=== PATIENT | female | born 1935 | race Caucasian/White ===

== ENCOUNTER 2016-10-03 10:06 | Inpatient (IN) | payer MEDICARE, OTHER ==
[~2016-10-03] VITALS: Ht 154.9 cm; Wt 83.0 kg
[2016-10-03] MEDS ORDERED: SOD CHLORIDE 0.9% 500 ML IV STA (10:24)
[2016-10-03] MEDS ORDERED: HYDROmorphONE 1 MG/ML SYG IV STA (10:24)
[2016-10-03] MEDS ORDERED: ONDANSETRON 4 MG INJ IV STA (10:24)
[2016-10-03 10:55] LABS: BASOPHIL # 0.1 10^3/ul (0.0-0.1); BASOPHILS % 0.8 % (0.0-2.0); EOSINOPHILS # 0.2 10^3/ul (0.0-0.5); EOSINOPHILS % 3.6 % (0.0-7.0); HEMATOCRIT 39.8 % (37.0-47.0); HEMOGLOBIN 12.8 g/dl (12.0-16.0); LYMPHOCYTES # 1.1 10^3/ul (0.8-2.9); LYMPHOCYTES % 16.9 % (15.0-51.0); MEAN CORPUSCULAR HEMOGLOBIN 30.3 pg (29.0-33.0); MEAN CORPUSCULAR HGB CONC 32.2 g/dl (32.0-37.0); MEAN CORPUSCULAR VOLUME 94.1 fl (82.0-101.0); MEAN PLATELET VOLUME 10.6 fl (7.4-10.4); MONOCYTE # 0.6 10^3/ul (0.3-0.9); MONOCYTES % 8.9 % (0.0-11.0); NEUTROPHILS % 69.5 % (39.0-77.0); PLATELET COUNT 241 10^3/UL (140-415); RED BLOOD COUNT 4.23 10^6/ul (4.20-5.40); RED CELL DISTRIBUTION WIDTH 14.7 % (11.5-14.5); WHITE BLOOD COUNT 6.4 10^3/ul (4.8-10.8)
--- NOTE | 2016-10-03 11:07 | RADRPT ---
PROCEDURE: XR Chest. CLINICAL INDICATION: Abdominal pain. TECHNIQUE: Single frontal chest x-ray. COMPARISON: None available FINDINGS: The patient is rotated to the right, limiting evaluation. There is a large hazy right perihilar den sity extending into the upper and lower lobes and obscuring the right heart border. Minimal left bas ilar atelectasis is present. Otherwise, the left lung is clear. No definite effusion or pneumothor ax is seen. The osseous structures are grossly intact. IMPRESSION: Largely hazy right perihilar density extending into the upper, lower, and middle lobes, obscuring th e right heart border. Considerations include extensive pneumonia or hilar/pulmonary mass. Correlat e with the patient's clinical symptoms, follow-up chest x-rays to resolution, and CT chest if clinic ally indicated. RPTAT: JJ .Lambert Rebollar MD, Date Time Electronically viewed and signed by .Lambert Rebollar MD, on 10/03/2016 11:06 .A/
[2016-10-03 11:21] LABS: ALBUMIN 3.6 g/dl (3.3-4.9); ALBUMIN/GLOBULIN RATIO 0.87; BILIRUBIN,INDIRECT 0.3 mg/dl (0-1.1); BILIRUBIN,TOTAL 0.3 mg/dl (0.2-1.3); CALCIUM 9.2 mg/dl (8.4-10.2); CREATININE 0.63 mg/dl (0.44-1.00); POTASSIUM 3.9 mmol/L (3.5-5.1); TOTAL PROTEIN 7.7 g/dl (6.1-8.1)
--- NOTE | 2016-10-03 11:28 | RADRPT ---
PROCEDURE: US Pelvis. CLINICAL INDICATION: Vaginal bleeding TECHNIQUE: Multiple sonographic images of the pelvis were obtained utilizing a transabdominal mattie hnique. The images were reviewed on a PACS workstation. COMPARISON: None. FINDINGS: The study is very limited due to incontinence and a partially distended urinary bladder. The uterus is partially visualized and small in size. The uterus measures 5.8 x 2.7 x 3.5 cm. The ovaries are not visualized. There are possible diverticula near the dome of the bladder and in the left side of the bladder. No free fluid is present within the pelvis. RPTAT: AA IMPRESSION: Very limited study. Small uterus. Ovaries not visualized. No free fluid noted. Possible diverticula in the urinary bladder. .Herman Hinton MD, Date Time Electronically viewed and signed by .Herman Hinton MD, MD on 10/03/2016 11:28 .S/
--- NOTE | 2016-10-03 11:33 | ERA ---
ER Documentation Chief Complaint Date/Time DATE: 10/03/16 TIME: 11:08 Chief Complaint Vaginal Bleeding x 4 days alos c/o lower back pain HPI This 81-year-old female here for complaints of pelvic pain for 3-4 days with vaginal bleeding. She is also complaining today of some low back pain with some diffuse abdominal pain. She has nausea but no vomiting or diarrhea. No recent weight loss or anorexia. She says the pain is described as crampy and sharp at times. Nothing seems to make it worse or better. Denies any fever hematuria dysuria but does have some urinary frequency at times. Family states for the past 6 months she is gradually becoming more weak to the point where she is bedridden and can only take a few steps each day. She is also having a lack of appetite. The patient had a cough for the past 10-14 days with some occasional productive sputum. A home doctor came out to the house and said she had bronchitis and gave her a short course of antibiotics however this did not get any better. The patient is on Coumadin for DVT but there is no history of A. fib ROS All systems reviewed and are negative except as per history of present illness. Medications Home Meds Reported Medications Fentanyl (Fentanyl) 1 Each Patch.td72, 1 EACH TD Q72H, PATCH 10/03/16 Etanercept (Enbrel) 50 Mg/1 Ml Pen.injctr, 50 MG SQ EVERY Sunday10/03/16 Folic Acid* (Folic Acid*) 1 Mg Tablet, 1 MG PO DAILY, TAB 10/03/16 Losartan Potassium* (Losartan Potassium*) 100 Mg Tablet, 100 MG PO DAILY, TAB 10/03/16 Warfarin Sodium* (Warfarin Sodium*) 4 Mg Tablet, 4 MG PO DAILY, TAB 10/03/16 Tramadol Hcl* (Ultram*) 50 Mg Tablet, 50 MG PO BID Y for PAIN, TAB 10/03/16 Cyanocobalamin* (Vitamin B12*) 100 Mcg Tab, 100 MCG PO DAILY, TAB 10/03/16 Hydrocodone/Acetaminophen ([place] 10-325 Tablet) 1 Each Tablet, 1 EACH PO DAILY Y for SEVERE PAIN LEVEL 7-10, TAB 10/03/16 Alendronate Sodium* (Fosamax*) 70 Mg Tablet, 70 MG PO EVERY SUNDAY, #4 TAB 10/03/16 Diltiazem Hcl* (Cardizem SR*) 60 Mg Capsr, 60 MG PO TID, #60 CAP 10/03/16 Prednisone* (Prednisone*) 10 Mg Tab, 10 MG PO DAILY, TAB 10/03/16 Docusate Sodium* (Colace*) 250 Mg Capsule, 250 MG PO DAILY Y for CONSTIPATION, # 30 CAP 10/03/16 Cyclobenzaprine Hcl* (Cyclobenzaprine Hcl*) 10 Mg Tablet, 10 MG PO DAILY Y for MUSCLE SPASMS, #90 TAB 10/03/16 Omeprazole* (Omeprazole*) 20 Mg Capsule.dr, 20 MG PO DAILY, #30 CAP 10/03/16 Furosemide* (Furosemide*) 20 Mg Tablet, 20 MG PO DAILY, #60 TAB 10/03/16 Sennosides/Docusate Sodium (Senna S Tablet) 1 Each Tablet, 1 EACH PO DAILY, TAB 10/03/16 Allergies Allergies: Coded Allergies: No Known Allergy (Unverified , 10/03/16) PMhx/Soc History of Surgery: Yes (45 years ago in [facility]; not sure what) Anesthesia Reaction: No Hx Neurological Disorder: No Hx Respiratory Disorders: Yes (asthma) Hx Cardiac Disorders: No Hx Psychiatric Problems: No Hx Miscellaneous Medical Probl: Yes (hypertension, arthritis, sciatica, DVT) Hx Alcohol Use: No Hx Substance Use: No Hx Tobacco Use: No Smoking Status: Never smoker FmHx Family History: No coronary disease Physical Exam Vitals Vital Signs Date Time Temp Pulse Resp B/P Pulse Ox O2 Delivery O2 Flow Rate FiO2 10/03/16 10:30 93 24 187/87 91 Room Air 10/03/16 10:08 97.7 105 18 200/100 94 Physical Exam Const: Well-developed, well-nourished Head: Atraumatic, normocephalic Eyes: Normal Conjunctiva, PERRLA, EOMI, normal sclera, no nystagmus ENT: Normal External Ears, Nose and Mouth, moist mucus membranes. Neck: Full range of motion. No meningismus, no lymphadenopathy. Resp: Clear to auscultation bilaterally, no wheezing, rhonchi, rales Cardio: Regular rate and rhythm, no murmurs, S1 S2 present Abd: Soft, diffuse abdominal tenderness, there is diffuse mild to moderate pelvic tenderness as well, non distended. Normal bowel sounds, no guarding or rebound, no pulsitile abdominal masses or bruits Skin: No petechiae or rashes, no ecchymosis , no maculopapular rash Back: No midline or flank tenderness Ext: No cyanosis, or edema, FROM x 4, normal inspection, neurovascularly intact x 4 Neur: Awake and alert, STR 5/5 x 4, sensation intact x 4, no focal findings, cerebellum intact Psych: Normal Mood and Affect Result Diagram: 10/03/16 1024 10/03/16 1024 Results 24 hrs Laboratory Tests Test 10/03/16 10:24 10/03/16 11:45 White Blood Count 6.410^3/ul Red Blood Count 4.2310^6/ul Hemoglobin 12.8g/dl Hematocrit 39.8% Mean Corpuscular Volume 94.1fl Mean Corpuscular Hemoglobin 30.3pg Mean Corpuscular Hemoglobin Concent 32.2g/dl Red Cell Distribution Width 14.7% Platelet Count 08225^3/UL Mean Platelet Volume 10.6fl Neutrophils % 69.5% Lymphocytes % 16.9% Monocytes % 8.9% Eosinophils % 3.6% Basophils % 0.8% Nucleated Red Blood Cells % 0.0/100WBC Neutrophils # (Manual) 4.510^3/ul Lymphocytes # 1.110^3/ul Monocytes # 0.610^3/ul Eosinophils # 0.210^3/ul Basophils # 0.110^3/ul Nucleated Red Blood Cells # 0.010^3/ul Sodium Level 145mmol/L Potassium Level 3.9mmol/L Chloride Level 104mmol/L Carbon Dioxide Level 27mmol/L Anion Gap 18 Blood Urea Nitrogen 20mg/dl Creatinine 0.63mg/dl Glucose Level 127mg/dl Calcium Level 9.2mg/dl Total Bilirubin 0.3mg/dl Direct Bilirubin 0.00mg/dl Indirect Bilirubin 0.3mg/dl Aspartate Amino Transf (AST/SGOT) 18IU/L Alanine Aminotransferase (ALT/SGPT) 26IU/L Alkaline Phosphatase 68IU/L Total Protein 7.7g/dl Albumin 3.6g/dl Globulin 4.10g/dl Albumin/Globulin Ratio 0.87 Lipase 19U/L Urine Color RED Urine Clarity CLOUDY Urine pH 8.0 Urine Specific [place] 1.017 Urine Ketones NEGATIVEmg/dL Urine Nitrite NEGATIVEmg/dL Urine Bilirubin NEGATIVEmg/dL Urine Urobilinogen NEGATIVEmg/dL Urine Leukocyte Esterase 1+Beto/ul Urine Microscopic RBC > 182/HPF Urine Microscopic WBC > 182/HPF Urine Hemoglobin 3+mg/dL Urine Glucose NEGATIVEmg/dL Urine Total Protein 3+mg/dl Current Medications Medications (Trade) Dose Ordered Sig/Ryan Route PRN Reason Start Time Stop Time Status Last Admin Dose Admin Sodium Chloride (NS) 500 ml @ 500 mls/hr Q1H STAT IV 10/03/16 10:24 10/03/16 11:23 DC 10/03/16 10:41 Hydromorphone HCl (Dilaudid) 1 mg ONCE STAT IV 10/03/16 10:24 10/03/16 10:26 DC 10/03/16 10:41 Ondansetron HCl (Zofran Inj) 4 mg ONCE STAT IV 10/03/16 10:24 10/03/16 10:26 DC 10/03/16 10:41 IV Flush 10 ml 10 ml STK-MED ONCE .ROUTE 10/03/16 12:25 10/03/16 12:26 DC 10/03/16 12:44 Sodium Chloride (NS) 100 ml @ ud STK-MED ONCE .ROUTE 10/03/16 12:25 10/03/16 12:26 DC 10/03/16 12:44 Iodixanol 100 ml 100 ml STK-MED ONCE .ROUTE 10/03/16 12:25 10/03/16 12:26 DC 10/03/16 12:44 Cefepime HCl 50 ml @ 100 mls/hr ONCE STAT IVPB 10/03/16 13:24 10/03/16 13:53 Vancomycin HCl (Vancocin) 250 ml @ 125 mls/hr ONCE ONCE IVPB 10/03/16 13:30 10/03/16 15:29 Procedures/MDM PROCEDURE: US Pelvis. CLINICAL INDICATION: Vaginal bleeding TECHNIQUE: Multiple sonographic images of the pelvis were obtained utilizing a transabdominal technique. The images were reviewed on a PACS workstation. COMPARISON: None. FINDINGS: The study is very limited due to incontinence and a partially distended urinary bladder. The uterus is partially visualized and small in size. The uterus measures 5.8 x 2.7 x 3.5 cm. The ovaries are not visualized. There are possible diverticula near the dome of the bladder and in the left side of the bladder. No free fluid is present within the pelvis. RPTAT: AA IMPRESSION: Very limited study. Small uterus. Ovaries not visualized. No free fluid noted. Possible diverticula in the urinary bladder. .Herman Hinton MD, MD Date Time Electronically viewed and signed by .Herman Hinton MD, MD on 10/03/2016 11: 28 .S/ CC: FABIAN BEAVER DO PROCEDURE: XR Chest. CLINICAL INDICATION: Abdominal pain. TECHNIQUE: Single frontal chest x-ray. COMPARISON: None available FINDINGS: The patient is rotated to the right, limiting evaluation. There is a large hazy right perihilar density extending into the upper and lower lobes and obscuring the right heart border. Minimal left basilar atelectasis is present. Otherwise, the left lung is clear. No definite effusion or pneumothorax is seen. The osseous structures are grossly intact. IMPRESSION: Largely hazy right perihilar density extending into the upper, lower, and middle lobes, obscuring the right heart border. Considerations include extensive pneumonia or hilar/pulmonary mass. Correlate with the patient's clinical symptoms, follow-up chest x-rays to resolution, and CT chest if clinically indicated. RPTAT: JJ .Lambert Rebollar MD, Date Time Electronically viewed and signed by .Lambert Rebollar MD, MD on 10/03/2016 11:06 .A/ CC: FABIAN BEAVER DO PROCEDURE: CT Abdomen and Pelvis with contrast. CLINICAL INDICATION: Hematuria, pain TECHNIQUE: CT of the abdomen and pelvis was performed on a multi-detector scanner following the uncomplicated IV administration of 100 cc of Visipaque 320. Coronal and sagittal images were reformatted from the axial data set. One or more of the following dose reduction techniques were used: automated exposure control, adjustment of the mA and/or kV according to patient size, use of iterative reconstruction technique. CTDI = 20.14 mGy. DLP = 1184.18 mGy- cm. COMPARISON: Ultrasound, 10/03/2016 FINDINGS: CT abdomen: The lung bases are clear. There is mild cardiomegaly, without pericardial effusion. Coronary arterial calcifications are noted. Liver, gallbladder, biliary tree, pancreas, spleen, adrenal glands and kidneys are unremarkable except for benign renal cysts. No urolithiasis or obstructive uropathy is identified. Small hiatal hernia is noted. The stomach is otherwise grossly unremarkable. There is no abdominal aortic aneurysm or dissection. Aortic vascular calcifications are present. There is no retroperitoneal lymphadenopathy. The amalia hepatis region is clear. CT pelvis: There is no bowel obstruction, free intraperitoneal air or abscess. Sigmoid diverticulosis is seen without diverticulitis. There is no appendicitis or colitis. Urinary bladder demonstrates mild wall thickening and adjacent inflammatory stranding, concerning for cystitis. Multiple bladder diverticula are noted. Endometrial thickness measures approximately 10 mm (602-81). No pelvic free fluid or lymphadenopathy is identified. The surrounding osseous structures are remarkable for degenerative enthesopathy of the spine. No osteolytic or osteoblastic lesion is detected. There are chronic mild to moderate compression deformities of the L1, L2 and L4 vertebral bodies. IMPRESSION: 1. Urinary bladder wall appears thickened, with adjacent inflammatory stranding , concerning for cystitis. Multiple bladder diverticula are incidentally noted. 2. Endometrial thickness measures 10 mm, above normal limits in a postmenopausal patient - consider further evaluation to exclude endometrial neoplasm. 3. No urolithiasis or obstructive uropathy is identified. 4. Mild cardiomegaly. Coronary arterial and aortoiliac atherosclerotic calcifications. 5. Small hiatal hernia. 6. Sigmoid diverticulosis, without diverticulitis. RPTAT: HDWR .Dougie Tran MD, MD Date Time Electronically viewed and signed by .Dougie Tran MD, MD on 10/03/2016 13: 08 .R/ CC: FABIAN BEAVER DO Patient is a very thickened endometrium concerning for endometrial cancer. Patient has urinary tract infection. The patient has a pneumonia or a neoplasm/ mass in the lungs as well. We will get blood and urine cultures and administer cefepime and vancomycin IV. Obtaining an EKG as well. Monitor shows irregular heart rate ranging from 95- 135 EKG: Rate/Rhythm: Sinus tachycardia heart rate 105 QRS, ST, QT: NORMAL [place], QRS, QT] Impression: NORMAL EKG Departure Diagnosis: Primary Impression: Postmenopausal bleeding Additional Impressions: Urinary tract infection Qualified Code: N30.00 - Acute cystitis without hematuria Pneumonia Qualified Code: J18.9 - Pneumonia due to infectious organism, unspecified laterality, unspecified part of lung Condition: Stable FABIAN BEAVER DO Oct 03, 2016 11:32
[2016-10-03] MEDS ORDERED: SENN-8 PO (11:57)
[2016-10-03] MEDS ORDERED: FURO20TA3 PO (11:57)
[2016-10-03] MEDS ORDERED: OMEP20CA16 PO (11:57)
[2016-10-03] MEDS ORDERED: DOCU250C58 PO (11:58)
[2016-10-03] MEDS ORDERED: CYCL-319 PO (11:58)
[2016-10-03] MEDS ORDERED: CARSR60 PO (11:59)
[2016-10-03] MEDS ORDERED: PRED10TA PO (11:59)
[2016-10-03] MEDS ORDERED: ALEN70TA30 PO (12:00)
[2016-10-03] MEDS ORDERED: HYDR-902 PO (12:01)
[2016-10-03] MEDS ORDERED: WARF4TAB52 PO (12:01)
[2016-10-03] MEDS ORDERED: TRAM-40 PO (12:01)
[2016-10-03] MEDS ORDERED: CYAN100 PO (12:01)
[2016-10-03] MEDS ORDERED: LOSA100T7 PO (12:02)
[2016-10-03] MEDS ORDERED: FOLI-49 PO (12:02)
[2016-10-03] MEDS ORDERED: ETAN50PE SQ (12:02)
[2016-10-03] MEDS ORDERED: FENT-65 TD (12:03)
[2016-10-03 12:12] LABS: ADD UMIC YES; UR ASCORBIC ACID NEGATIVE (NEGATIVE); UR BILIRUBIN (Dip) NEGATIVE (NEGATIVE); UR BLOOD (Dip) 3+ mg/dL (NEGATIVE); UR CLARITY CLOUDY (CLEAR); UR COLOR RED (YELLOW); UR GLUCOSE (Dip) NEGATIVE (NEGATIVE); UR KETONES (Dip) NEGATIVE (NEGATIVE); UR LEUKOCYTE ESTERASE (Dip) 1+ Leu/ul (NEGATIVE); UR NITRITE (Dip) NEGATIVE (NEGATIVE); UR RBC > 182 /HPF (0-5); UR SPECIFIC GRAVITY (Dip) 1.017 (1.003-1.030); UR TOTAL PROTEIN (Dip) 3+ mg/dl (NEGATIVE); UR UROBILINOGEN (Dip) NEGATIVE (NEGATIVE); UR WBC CLUMPS MANY /HPF (NONE SEEN)
[2016-10-03] MEDS ORDERED: SOD CHLORIDE 0.9% 100 ML ONE (12:25)
[2016-10-03] MEDS ORDERED: IODIXANOL LOCM 100 ML BTL ONE (12:25)
--- NOTE | 2016-10-03 13:08 | RADRPT ---
PROCEDURE: CT Abdomen and Pelvis with contrast. CLINICAL INDICATION: Hematuria, pain TECHNIQUE: CT of the abdomen and pelvis was performed on a multi-detector scanner following the un complicated IV administration of 100 cc of Visipaque 320. Coronal and sagittal images were reformat pato from the axial data set. One or more of the following dose reduction techniques were used: auto mated exposure control, adjustment of the mA and/or kV according to patient size, use of iterative reconstruction technique. CTDI = 20.14 mGy. DLP = 1184.18 mGy-cm. COMPARISON: Ultrasound, 10/03/2016 FINDINGS: CT abdomen: The lung bases are clear. There is mild cardiomegaly, without pericardial effusion. Coronary arter ial calcifications are noted. Liver, gallbladder, biliary tree, pancreas, spleen, adrenal glands an d kidneys are unremarkable except for benign renal cysts. No urolithiasis or obstructive uropathy i s identified. Small hiatal hernia is noted. The stomach is otherwise grossly unremarkable. There is no abdominal aortic aneurysm or dissection. Aortic vascular calcifications are present. T here is no retroperitoneal lymphadenopathy. The amalia hepatis region is clear. CT pelvis: There is no bowel obstruction, free intraperitoneal air or abscess. Sigmoid diverticulosis is seen without diverticulitis. There is no appendicitis or colitis. Urinary bladder demonstrates mild wal l thickening and adjacent inflammatory stranding, concerning for cystitis. Multiple bladder diverti cula are noted. Endometrial thickness measures approximately 10 mm (602-81). No pelvic free fluid or lymphadenopathy is identified. The surrounding osseous structures are remarkable for degenerative enthesopathy of the spine. No os teolytic or osteoblastic lesion is detected. There are chronic mild to moderate compression deformit ies of the L1, L2 and L4 vertebral bodies. IMPRESSION: 1. Urinary bladder wall appears thickened, with adjacent inflammatory stranding, concerning for cys titis. Multiple bladder diverticula are incidentally noted. 2. Endometrial thickness measures 10 mm, above normal limits in a postmenopausal patient - consider further evaluation to exclude endometrial neoplasm. 3. No urolithiasis or obstructive uropathy is identified. 4. Mild cardiomegaly. Coronary arterial and aortoiliac atherosclerotic calcifications. 5. Small hiatal hernia. 6. Sigmoid diverticulosis, without diverticulitis. RPTAT: HDWR .Dougie Tran MD, MD Date Time Electronically viewed and signed by .Dougie Tran MD, MD on 10/03/2016 13:08 .R/
[2016-10-03] MEDS ORDERED: CEFEPIME 2GM/50 ML (PMX) 50 ML IVPB STA (13:24)
[2016-10-03] MEDS ORDERED: VANCOMYCIN 1 GM (PMX) 250 ML IVPB ONE (13:30)
[2016-10-03] MEDS ORDERED: SOD CHLORIDE 0.9% 1,000 ML IV SCH (14:14)
[2016-10-03] MEDS ORDERED: ACETAMINOPHEN 325 MG TAB PO PRN (14:30)
[2016-10-03] MEDS ORDERED: ONDANSETRON 4 MG INJ IV PRN (14:30)
[2016-10-03] MEDS ORDERED: HYDROCODONE/APAP (10/325) TAB PO PRN (15:00)
[2016-10-03] MEDS ORDERED: VANCOMYCIN IV PER PHARMACY XX SCH (15:00)
[2016-10-03 15:30] VITALS: BP 132/66; PULSE 110; RESP 18
[2016-10-03 15:46] VITALS: Ht 154.9 cm; Wt 83.0 kg
[2016-10-03] MEDS ORDERED: BISACODYL 10 MG SUPP PR PRN (16:00)
[2016-10-03] MEDS ORDERED: MAGNESIUM HYDROXIDE 30ML CUP PO PRN (16:00)
[2016-10-03] MEDS ORDERED: DOCUSATE SODIUM 100 MG CAP PO PRN (16:00)
[2016-10-03] MEDS: ENBREL XX SCH (16:00)
[2016-10-03] MEDS ORDERED: NACL 0.9% 3 ML SYG IV SCH (16:00)
[2016-10-03] MEDS ORDERED: morphine 2 MG INJ IV PRN (16:00)
[2016-10-03] MEDS ORDERED: HYDROCODONE/APAP (5/325) TAB PO PRN (16:00)
[2016-10-03 16:10] VITALS: PULSE 111
[2016-10-03 16:14] LABS: INR 3.42; PT RATIO 2.7
[2016-10-03 16:36] LABS: INR 3.16; PROTIME 32.9 Sec (12.2-14.2); PT RATIO 2.6
[2016-10-03 16:48] LABS: CANCER ANTIGEN 125 13.3 U/ml (0.0-35.0)
[2016-10-03 16:52] LABS: CANCER ANTIGEN 19-9 23.7 U/ml (0.0-37.0)
[2016-10-03] MEDS ORDERED: WARFARIN 2 MG TAB PO SCH (17:00)
--- NOTE | 2016-10-03 17:36 | HP ---
Date/Time of Note Date/Time of Note DATE: 10/03/16 TIME: 17:31 Assessment/Plan VTE Prophylaxis VTE Prophylaxis Intervention: SCD's Lines/Catheters IV [facility]from [facility]ine [facility] Urinary Cath still in place: No Assessment/Plan Chief Complaint/Hosp Course Impression and plan 1. Postmenopausal vaginal bleeding. Patient did have CT scan of her abdomen and pelvis that did show endometrial thickness measuring 10 mm were normal limits in a postmenopausal patient with report considering further evaluation to exclude endometrial neoplasm. Will get electronics engineering manager pending clinical course. Will also consider urologist. No further bleeding noted at this time. Patient also noted with UTI. Will monitor for now. Monitor H&H. Patient will also be advised for referral to electronics engineering manager as outpatient. 2. Pneumonia. Will get CT scan of the chest. Continue antibiotics for now. Will get health services administrator follow. Of note patient was given diagnosis of pneumonia 10 days prior to this admission was given 10 days of antibiotics. 3. Urinary tract infection with cystitis. Continue antibiotics for now. Follow-up on urine culture. Of note patient did have abdominal pelvic CT scan suggestive of cystitis. 4. Essential hypertension. Continue antihypertensives and adjust needed 5. Sciatica with back pain. Will get pain management physician to follow. Will get physical therapy as well. 6. Deconditioning. Physical therapy to follow. Admission process times greater than 50 minutes Discussed plan of care with Dr. 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 due to reports of vaginal bleeding for 3-4 days. Of note patient was seen with INR of 3.42 which is supratherapeutic. Patient is also postmenopausal. Patient also reported having some associated dysuria and urinary frequency as well as some shortness of breath. Per family patient recently had pneumonia 10 days ago and is given antibiotics for 10 days duration and that thereafter she also received a UTI. She is also become gradually weak profoundly likely secondary to her sciatica. She was brought to [facility] due to the aformentiond issues. On examination she had an abdominal pelvic CT scan that did show urinary bladder wall thickening concerning for cystitis. There is also seen multiple bladder diverticula. She also was seen with endometrial thickness measuring 10 mm, above normal limits in postmenopausal patient with imaging report considering further evaluation to exclude endometrial neoplasm. She was also seen with sigmoid diverticulosis without diverticulitis. It was reported that ER physician did contact on-call TIMBER REPAIRER however further recommendations would likely need outpatient workup for this issue. Patient did also have some shortness of breath. Per chest x-ray did show large hazy right perihilar density extending to the upper, lower and middle lobes. There are considerations for extensive pneumonia or possible pulmonary hilar mass. Patient remained afebrile on visit but did have some tachycardia with heart rate as high as 111. She is on diltiazem but there is no reported history of any kind of heart arrhythmia. No leukocytosis noted and patient did remain afebrile. She did have urinalysis with positive leukocyte esterase tests and findings suggestive of UTI. We will evaluate her for the aformentiond issues. 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 Slightly coarse) Cardiovascular: other (Regular rate to tachycardic) Gastrointestinal: non-tender, soft Genitourinary - Female: other (No catheter in place. Sanitary pad not saturated) Musculoskeletal: swelling (Bilateral lower extremities minimal) Neurological: RESIDENT ASSISTANT CNA II-XII intact, nl speech Labs Result Diagram: 10/03/16 1024 10/03/16 1024 Medications Medications Current Medications Sodium Chloride (NS) 1,000 ml @ 80 mls/hr [id number] IV Last administered on 10/03t 16:32; Admin Dose 80 MLS/HR; Start 10/03/16 at 14:14; Stop 10/04/16 at 02: 43 Cyanocobalamin (Vitamin B12) 100 mcg DAILY PO ; Start 10/04/16 at 09:00 Diltiazem HCl (Cardizem Sr) 60 mg TID PO ; Start 10/03/16 at 21:00 Docusate Sodium (Colace) 250 mg DAILY PRN PO CONSTIPATION; Start 10/03/16 at 15 :00 Folic Acid (Folic Acid) 1 mg DAILY PO ; Start 10/04/16 at 09:00 Furosemide (Lasix) 20 mg DAILY PO ; Start 10/04/16 at 09:00 Acetaminophen/ Hydrocodone Bitart ([place] (10/325)) 1 tab DAILY PRN PO SEVERE PAIN LEVEL 7-10 Last administered on 10/03/16 16:59; Admin Dose 1 TAB; Start at 15:00 Losartan Potassium (Cozaar) 100 mg DAILY PO ; Start 10/04/16 at 09:00 Senna/Docusate Sodium (Senokot-S) 1 tab DAILY PO ; Start 10/04/16 at 09:00 Warfarin Sodium (Coumadin) 4 mg DAILY@17 PO ; Start 10/03/16 at 17:00; Status Future Hold Pantoprazole 40 mg 40 mg DAILY@06 PO ; Start 10/04/16 at 06:00 Cefepime HCl (Maxipime 2gm/50 ml (Pmx)) 50 ml @ 100 mls/hr Q24H IVPB ; Start at 13:00 Miscellaneous Information (*Order Clarification Bulletin) MEDICATION REQUIRES CLARIFICATI... Q8H XX ; Start 10/03/16 at 16:00 Acetaminophen/ Hydrocodone Bitart ([place] (5/325)) 1 tab Q6H PRN PO MODERATE PAIN LEVEL 4-6; Start 10/03/16 at 16:00 Acetaminophen/ Hydrocodone Bitart ([place] (5/325)) 2 tab Q6H PRN PO SEVERE PAIN LEVEL 7-10; Start 10/03/16 at 16:00 Morphine Sulfate (morphine) 2 mg Q4H PRN IV SEVERE PAIN LEVEL 7-10; Start 10/03 at 16:00 Docusate Sodium (Colace) 100 mg Q12H PRN PO CONSTIPATION; Start 10/03/16 at 16: 00 Magnesium Hydroxide (Milk Of Mag) 30 ml DAILY PRN PO CONSTIPATION; Start at 16:00 Bisacodyl 10 mg 10 mg DAILY PRN IA CONSTIPATION; Start 10/03/16 at 16:00 Vancomycin HCl 1.25 gm/Sodium Chloride 250 ml @ 83.333 mls/ hr ONCE ONCE IVPB ; Start 10/03/16 at 18:00; Stop 10/03/16 at 20:59 Vancomycin HCl (Vancocin) 250 ml @ 125 mls/hr Q24H IVPB ; Start 10/04/16 at 18: 00 HUMBERTO PERALTA Oct 03, 2016 17:36
[2016-10-03] MEDS ORDERED: VANCOMYCIN 1.25 GM in SOD CHLORIDE 0.9% 250 ML IVPB ONE (18:00)
[2016-10-03 20:00] VITALS: BP 174/91; RESP 20
[2016-10-03 20:09] VITALS: PULSE 99
[2016-10-03] MEDS: DILTIAZEM (SR) 60 MG CAP PO SCH ×2 (20:50→20:53)
[2016-10-03] MEDS ORDERED: KETOROLAC 15 MG INJ IV PRN (21:00)
[2016-10-03] MEDS: LABETALOL HCL 20MG INJ IV PRN (21:59)
[2016-10-03] MEDS: HYDROCODONE/APAP (5/325) TAB PO PRN (22:59)
[2016-10-03] MEDS ORDERED: traMADol 50 MG TAB PO PRN (23:30)
[2016-10-04] VITALS (11 sets, daily range): BP systolic 134–184; BP diastolic 68–91; PULSE 82–99; RESP 18–20
[2016-10-04] MEDS: LORAZEPAM 1 MG TAB PO PRN ×2 (01:02→20:27)
[2016-10-04] MEDS: LABETALOL HCL 20MG INJ IV PRN (03:58)
[2016-10-04] MEDS: PANTOPRAZOLE (EC) 40 MG TAB PO SCH (05:05)
[2016-10-04] MEDS: HYDROCODONE/APAP (5/325) TAB PO PRN (05:09)
--- NOTE | 2016-10-04 07:52 | CONS ---
Date/Time of Note Date/Time of Note DATE: 10/04/16 TIME: 07:45 Assessment/Plan Assessment/Plan Additional Assessment/Plan Discussion with patient's daughter, there were other first-degree family members were not available. Apparently patient has had a steady downhill course since recent hospitalization for pneumonia. She has had a decrease in cognitive abilities and able to do activities of daily living. She is only able to ambulate with assist and very weak per daughter. I have had a discussion with her concerning goals of care background history, chances for full recovery, acceptable quality of intercommunication preferences. Daughter made it very clear that family has spoken about her CODE STATUS and level of care needs and she has a catastrophic change in her clinical course they do not want her on artificial life support or have cardiopulmonary resuscitation. Therefore goals of care have been discussed and they would like her to hopefully improve to the point if she is able to do some ambulation on her own. Her estimated prognosis is extremely poor her palliative performance scale is 20%. There are no ethical issues as family members have made this decision together. Patient has had pain management syndrome for rheumatoid arthritis prior to hospitalization and takes multiple different opioid pain medication I will streamline her therapy based on my conversation with family members I will change her CODE STATUS to DO NOT RESUSCITATE. Any event that she does not improve significantly from both a cognitive standpoint and physically family request consideration to place patient in a longterm unit. 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 1 Consultation Date/Type/Reason Admit Date/Time Oct 03, 2016 at 14:16 Type of Consultation: Palliative care Social History Alcohol Use: sober Smoking Status: Never smoker Drug Use: none Exam/Review of Systems Vital Signs Vitals Vital Signs Date Time Temp Pulse Resp B/P Pulse Ox O2 Delivery O2 Flow Rate FiO2 10/04/16 07:22 98.7 92 18 134/68 98 10/03/16 21:00 Nasal Cannula 2.0 Intake and Output 10/03/16 10/03/16 10/04/16 15:00 23:00 07:00 Intake Total 660 ml 1140 ml Balance 660 ml 1140 ml Results Result Diagram: 10/03/16 1024 10/03/16 1024 Results 24 hrs Laboratory Tests Test 10/03/16 10:24 10/03/16 10:27 10/03/16 11:45 10/03/16 16:01 White Blood Count 6.4 Red Blood Count 4.23 Hemoglobin 12.8 Hematocrit 39.8 Mean Corpuscular Volume 94.1 Mean Corpuscular Hemoglobin 30.3 Mean Corpuscular Hemoglobin Concent 32.2 Red Cell Distribution Width 14.7 H Platelet Count 241 Mean Platelet Volume 10.6 H Neutrophils % 69.5 Lymphocytes % 16.9 Monocytes % 8.9 Eosinophils % 3.6 Basophils % 0.8 Nucleated Red Blood Cells % 0.0 Neutrophils # (Manual) 4.5 Lymphocytes # 1.1 Monocytes # 0.6 Eosinophils # 0.2 Basophils # 0.1 Nucleated Red Blood Cells # 0.0 Sodium Level 145 H Potassium Level 3.9 Chloride Level 104 Carbon Dioxide Level 27 Anion Gap 18 H Blood Urea Nitrogen 20 Creatinine 0.63 Glucose Level 127 Calcium Level 9.2 Total Bilirubin 0.3 Direct Bilirubin 0.00 Indirect Bilirubin 0.3 Aspartate Amino Transf (AST/SGOT) 18 Alanine Aminotransferase (ALT/SGPT) 26 Alkaline Phosphatase 68 Total Protein 7.7 Albumin 3.6 Globulin 4.10 H Albumin/Globulin Ratio 0.87 Lipase 19 L Prothrombin Time 35.0 H 32.9 H Prothrombin Time Ratio 2.7 2.6 INR International Normalized Ratio 3.42 3.16 Lactate Dehydrogenase 370 CA 19-9 Antigen 23.7 CA 125 Antigen 13.3 Urine Color RED Urine Clarity CLOUDY A Urine pH 8.0 Urine Specific [place] 1.017 Urine Ketones NEGATIVE Urine Nitrite NEGATIVE Urine Bilirubin NEGATIVE Urine Urobilinogen NEGATIVE Urine Leukocyte Esterase 1+ H Urine Microscopic RBC > 182 H Urine Microscopic WBC > 182 H Urine Hemoglobin 3+ H Urine Glucose NEGATIVE Urine Total Protein 3+ H Lactic Acid Level 1.1 Alpha Fetoprotein 3.69 Carcinoembryonic Antigen 4.2 Medications Medications Current Medications Cyanocobalamin (Vitamin B12) 100 mcg DAILY PO ; Start 10/04/16 at 09:00 Diltiazem HCl (Cardizem Sr) 60 mg TID PO Last administered on 10/03/16t 20:53; Admin Dose 60 MG; Start 10/03/16 at 18:00 Docusate Sodium (Colace) 250 mg DAILY PRN PO CONSTIPATION; Start 10/03/16 at 15 :00 Folic Acid (Folic Acid) 1 mg DAILY PO ; Start 10/04/16 at 09:00 Furosemide (Lasix) 20 mg DAILY PO ; Start 10/04/16 at 09:00 Acetaminophen/ Hydrocodone Bitart ([facility] (10/325)) 1 tab DAILY PRN PO SEVERE PAIN LEVEL 7-10 Last administered on 10/03/16 16:59; Admin Dose 1 TAB; Start at 15:00 Losartan Potassium (Cozaar) 100 mg DAILY PO ; Start 10/04/16 at 09:00 Senna/Docusate Sodium (Senokot-S) 1 tab DAILY PO ; Start 10/04/16 at 09:00 Warfarin Sodium (Coumadin) 4 mg DAILY@17 PO ; Start 10/03/16 at 17:00; Status Future Hold Pantoprazole 40 mg 40 mg DAILY@06 PO Last administered on 10/04/16 05:05; Admin Dose 40 MG; Start 10/04/16 at 06:00 Cefepime HCl (Maxipime 2gm/50 ml (Pmx)) 50 ml @ 100 mls/hr Q24H IVPB ; Start at 13:00 Miscellaneous Information (*Order Clarification Bulletin) MEDICATION REQUIRES CLARIFICATI... Q8H XX ; Start 10/03/16 at 16:00 Acetaminophen/ Hydrocodone Bitart ([facility] (5/325)) 1 tab Q6H PRN PO MODERATE PAIN LEVEL 4-6; Start 10/03/16 at 16:00 Acetaminophen/ Hydrocodone Bitart ([facility] (5/325)) 2 tab Q6H PRN PO SEVERE PAIN LEVEL 7-10 Last administered on 10/04/16 05:09; Admin Dose 2 TAB; Start at 16:00 Morphine Sulfate (morphine) 2 mg Q4H PRN IV SEVERE PAIN LEVEL 7-10; Start 10/03 at 16:00 Docusate Sodium (Colace) 100 mg Q12H PRN PO CONSTIPATION; Start 10/03/16 at 16: 00 Magnesium Hydroxide (Milk Of Mag) 30 ml DAILY PRN PO CONSTIPATION; Start at 16:00 Bisacodyl 10 mg 10 mg DAILY PRN [place] CONSTIPATION; Start 10/03/16 at 16:00 Vancomycin HCl (Vancocin) 250 ml @ 125 mls/hr Q24H IVPB ; Start 10/04/16 at 18: 00 Labetalol HCl (Labetalol) 10 mg Q4H PRN IV for SBP greater than 160 Last administered on 10/04/16 03:58; Admin Dose 10 MG; Start 10/03/16 at 21:00 Tramadol HCl (Ultram) 50 mg Q6H PRN PO PAIN Last administered on 10/03/16 23: 58; Admin Dose 50 MG; Start 10/03/16 at 23:30 Lorazepam (Ativan) 1 mg Q6H PRN PO ANXIETY Last administered on 10/04/16 01:02 ; Admin Dose 1 MG; Start 10/03/16 at 23:30 PRANAV REHMAN Oct 04, 2016 07:52
[2016-10-04] MEDS: ENBREL XX SCH ×3 (08:00→16:00)
[2016-10-04] MEDS: FUROSEMIDE 20 MG TAB PO SCH (09:25)
[2016-10-04] MEDS: CYANOCOBALAMIN 100 MCG TAB PO SCH (09:25)
[2016-10-04] MEDS: DILTIAZEM (SR) 60 MG CAP PO SCH ×3 (09:25→21:23)
[2016-10-04] MEDS: FOLIC ACID 1 MG TAB PO SCH (09:26)
[2016-10-04] MEDS: LOSARTAN 50 MG TAB PO SCH (09:26)
[2016-10-04] MEDS: SENNA/DOCUSATE NA (8.6MG/50MG) TAB PO SCH (09:26)
[2016-10-04] MEDS ORDERED: traMADol 50 MG TAB PO SCH (09:30)
[2016-10-04] MEDS: DOCUSATE SODIUM 250 MG CAP PO PRN (09:31)
[2016-10-04] MEDS: traMADol 50 MG TAB PO SCH ×3 (09:38→23:46)
[2016-10-04 10:16] LABS: BASOPHILS % 0.9 % (0.0-2.0); EOSINOPHILS # 0.3 10^3/ul (0.0-0.5); HEMATOCRIT 38.4 % (37.0-47.0); HEMOGLOBIN 12.3 g/dl (12.0-16.0); LYMPHOCYTES # 1.5 10^3/ul (0.8-2.9); LYMPHOCYTES % 32.2 % (15.0-51.0); MEAN CORPUSCULAR HEMOGLOBIN 30.6 pg (29.0-33.0); MEAN CORPUSCULAR VOLUME 95.5 fl (82.0-101.0); MEAN PLATELET VOLUME 10.7 fl (7.4-10.4); MONOCYTE # 0.5 10^3/ul (0.3-0.9); NEUTROPHILS % 50.7 % (39.0-77.0); PLATELET COUNT 220 10^3/UL (140-415); RED BLOOD COUNT 4.02 10^6/ul (4.20-5.40); RED CELL DISTRIBUTION WIDTH 14.8 % (11.5-14.5); WHITE BLOOD COUNT 4.5 10^3/ul (4.8-10.8)
[2016-10-04 10:34] LABS: ALBUMIN 3.2 g/dl (3.3-4.9); ALBUMIN/GLOBULIN RATIO 0.88; BILIRUBIN,INDIRECT 0.4 mg/dl (0-1.1); BILIRUBIN,TOTAL 0.4 mg/dl (0.2-1.3); CALCIUM 8.7 mg/dl (8.4-10.2); CHOL/HDL RATIO 3.6 RATIO; CREATININE 0.63 mg/dl (0.44-1.00); MAGNESIUM 1.7 mg/dl (1.7-2.5); PHOSPHORUS 5.3 mg/dl (2.5-4.9); POTASSIUM 3.8 mmol/L (3.5-5.1); TOTAL PROTEIN 6.8 g/dl (6.1-8.1)
--- NOTE | 2016-10-04 10:40 | RADRPT ---
Echocardiogram Report Patient Name: JUSTINE SANCHEZ Gender: Female Date: 1935 Study Date: 04-Oct-2016 Body Mechanic Apprentice: Gala Menezes [facility] Location: [facility] Ref. Physician: HUMBERTO PERALTA Quality: Adequate Procedures: Transthoracic echocardiogram with complete 2D, M-Mode, and doppler examination. Indications: dyspnea, suspect Congestive Heart Failure. 2D/M Mode Doppler Measurement Value Normal Ranges Measurement Value Normal Ranges LVIDd 2D 3.4 3.5 - 5.6 cm LVOT Peak Khris 1.0 m/sec LVIDs 2D 1.9 2.1 - 4.1 cm LVOT Peak PG 3.7 mmHg LVPWd 2D 1.1 0.6 - 1.1 cm MV E Peak Khris 0.7 m/sec IVSd 2D 1.0 0.6 - 1.1 cm MV A Peak Khris 0.8 m/sec AoR Diam 2D 2.8 2.0 - 3.7 cm MV E/A 0.8 EDV 2D 47.3 cm3 MV Decel Time 227 msec ESV 2D 7.3 cm3 MV Decel [place] 3 LA Dimen 2D 3.4 2.3 - 4.0 cm MV E/A 0.8 TR Peak Khris 1.4 m/sec TR Peak PG 7.3 mmHg RVSP 10.0 mmHg Findings Left Ventricle: Normal left ventricular systolic function. Normal left ventricular cavity size. Mild concentric left ventricular hypertrophy. Ejection fraction is visually estimated at 65 %. Tissue Doppler/Mitral Doppler indices are consistent with impaired relaxation (Stage I diastolic dysfunction). Right Ventricle: Normal right ventricular size. Normal right ventricular systolic function. Left Atrium: The left atrium is normal in size. Right Atrium: The right atrium is normal in size. Mitral Valve: Mitral valve leaflets appear mildly thickened. Mild mitral annular calcification. Trace mitral regurgitation. Aortic Valve: No significant aortic stenosis or insufficiency. Aortic cusps appear mildly calcified. Tricuspid Valve: Normal appearance of the tricuspid valve. There is trace tricuspid regurgitation. Pulmonic Valve: Pulmonic valve not well visualized. Pericardium: Normal pericardium with no significant pericardial effusion. Aorta: Normal aortic root. IVC: Normal size and normal respiratory collapse consistent with normal right atrial pressure. Conclusions 1.Normal left ventricular systolic function. Normal left ventricular cavity size. Mild concentric left ventricular hypertrophy. Ejection fraction is visually estimated at 65 %. Tissue Doppler/Mitral Doppler indices are consistent with impaired relaxation (Stage I diastolic dysfunction). 2.Normal right ventricular size. Normal right ventricular systolic function. 3.The left atrium is normal in size. 4.The right atrium is normal in size. 5.No significant valvular stenosis or regurgitation seen. 6.Normal pericardium with no significant pericardial effusion. Electronically Signed By: Melvin Che 04-Oct-2016 10:40:02 -0700 Patient Name: JUSTINE SANCHEZ Study Date: 04-Oct-2016 [id number]
[2016-10-04 10:51] LABS: T3 UPTAKE 41.7 % (23.5-40.5)
[2016-10-04 11:06] LABS: THYROID STIMULATING HORMONE 0.691 MIU/L (0.465-4.680)
--- NOTE | 2016-10-04 12:12 | CONS ---
DATE OF ADMISSION: 10/03/2016 DATE OF CONSULTATION: 10/04/2016 REASON FOR CONSULTATION: Shortness of breath. Thank you Dr. Kemp for this consultation. HISTORY OF PRESENT ILLNESS: This is an 81-year-old lady with a past medical history of deep vein thrombosis, on long-term anticoagulation who presented with worsening shortness of breath and hypoxemia, found to have significant infiltrates on chest x- ray. In addition, she was found to have postmenopausal vaginal bleeding. In addition, she has been recently treated for UTI. Admission CT abdomen and pelvis was performed which demonstrated bladder wall thickening concerning for cystitis, multiple bladder diverticula, endometrial wall thickening also. She also had sigmoid diverticulosis without evidence of diverticulitis. Chest x-ray demonstrated extensive infiltrates in the right lung concerning for pneumonia. PAST MEDICAL HISTORY: Deep vein thrombosis, hypertension, hyperlipidemia, history of colon prolapse, history of dementia and rheumatoid arthritis. SOCIAL HISTORY: She is a nonsmoker. No alcohol. No history of drug use. FAMILY HISTORY: Noncontributory. REVIEW OF SYSTEMS: 12-point review of systems, currently unable to perform. PHYSICAL EXAMINATION: GENERAL APPEARANCE: Elderly Thai lady appears comfortable at rest. No acute distress. Opens eyes to voice. VITAL SIGNS: Currently afebrile. Pulse is 98, blood pressure 134/68, O2 sat 96 on 2 L nasal cannula. NECK: Supple. No JVD. No lymphadenopathy. CARDIAC: S1, S2. No added sounds or murmurs. CHEST: Diminished air entry bilaterally. ABDOMEN: Soft, nontender. No guarding or rebound. EXTREMITIES: No clubbing, cyanosis or edema. NEUROLOGIC: Generalized weakness. LABORATORY: White count 4.5, hemoglobin 12.3, platelets of 222, BUN 15, creatinine 0.63. LDH 370, TSH pending. IMPRESSION: 1. Significant radiographic changes concerning for pneumonia. However, no significant leukocytosis or fever. The concern is for underlying malignancy. 2. Vaginal bleeding concerning for possible endometrial malignancy. RECOMMENDATIONS: 1. Gynecology evaluation, possible endometrial biopsy. 2. Agree with CT chest to evaluate lung parenchyma. 3. Continue broad-spectrum antibiotic coverage. 4. Deep vein thrombosis and gastrointestinal prophylaxis. 5. Agree with palliative care evaluation as overall prognosis is guarded. Dictated By: Benjamin Martin MD /aden/trina /Document#: [id number]
[2016-10-04] MEDS: CEFEPIME 2GM/50 ML (PMX) 50 ML IVPB SCH (12:47)
[2016-10-04] MEDS: HYDROmorphONE 1 MG/ML SYG IV PRN ×3 (13:08→21:20)
--- NOTE | 2016-10-04 15:08 | PN ---
Date/Time of Note Date/Time of Note DATE: 10/04/16 TIME: 15:02 Assessment/Plan VTE Prophylaxis VTE Prophylaxis Intervention: SCD's Lines/Catheters IV C[facility]ter Type (from [facility] Peripheral IV Urinary Cath still in place: No Assessment/Plan Chief Complaint/Hosp Course Impression and plan 1. Postmenopausal vaginal bleeding. Patient did have CT scan of her abdomen and pelvis that did show endometrial thickness measuring 10 mm were normal limits in a postmenopausal patient with report considering further evaluation to exclude endometrial neoplasm. Will get drying room operator pending clinical course. . Patient also noted with UTI. Will monitor for now. Monitor H&H. Patient will also be advised for referral to drying room operator as outpatient. 2. Pneumonia. Will get CT scan of the chest. Continue antibiotics for now.. Of note patient was given diagnosis of pneumonia 10 days prior to this admission was given 10 days of antibiotics. continue with rn documentation specialist recs 3. Urinary tract infection with cystitis. Continue antibiotics for now. Follow-up on urine culture. Of note patient did have abdominal pelvic CT scan suggestive of cystitis. 4. Essential hypertension. Continue antihypertensives and adjust needed 5. Sciatica with back pain. Will get pain management physician to follow. Will get physical therapy as well. 6. Deconditioning. Physical therapy to follow. 7. Hematuria. Patient noted with UTI. It was reported per family that patient is with right right flank blood more than normal. Will get urologist follow. Disposition and plan: Continue with antibiotics. Follow-up on CT scan of the chest. Urologist to be consulted. Continue in-house monitoring Discussed plan of care with Dr. Burns Problems: Subjective 24 Hr Interval Summary Free Text/Dictation Alert today. On room air. No signs or symptoms of distress this time Exam/Review of Systems Vital Signs Vitals Vital Signs Date Time Temp Pulse Resp B/P Pulse Ox O2 Delivery O2 Flow Rate FiO2 10/04/16 12:21 88 10/04/16 11:37 98.4 18 159/75 94 10/03/16 21:00 Nasal Cannula 2.0 Intake and Output 10/03/16 10/03/16 10/04/16 14:59 22:59 06:59 Intake Total 660 ml 1140 ml Balance 660 ml 1140 ml Exam Constitutional: alert, other (Hard of hearing, obese) Head: normocephalic Neck: supple Respiratory: other (Minimally diminished at lung bases. Slightly coarse) Cardiovascular: other (Regular rate to tachycardic) Gastrointestinal: non-tender, soft Genitourinary - Female: other (No catheter in place. Sanitary pad not again during visit) Musculoskeletal: swelling (Bilateral lower extremities minimal) Neurological: SOUND EFFECTS SUPERVISOR II-XII intact, nl speech Results Result Diagram: 10/04/16 0951 10/04/16 0951 Results 24 hrs Laboratory Tests Test 10/03/16 16:01 10/04/16 09:51 Prothrombin Time 32.9 H Prothrombin Time Ratio 2.6 INR International Normalized Ratio 3.16 Lactic Acid Level 1.1 Alpha Fetoprotein 3.69 Carcinoembryonic Antigen 4.2 White Blood Count 4.5 #L Red Blood Count 4.02 L Hemoglobin 12.3 Hematocrit 38.4 Mean Corpuscular Volume 95.5 Mean Corpuscular Hemoglobin 30.6 Mean Corpuscular Hemoglobin Concent 32.0 Red Cell Distribution Width 14.8 H Platelet Count 220 Mean Platelet Volume 10.7 H Neutrophils % 50.7 Lymphocytes % 32.2 Monocytes % 10.0 Eosinophils % 6.0 Basophils % 0.9 Nucleated Red Blood Cells % 0.0 Neutrophils # (Manual) 2.3 Lymphocytes # 1.5 Monocytes # 0.5 Eosinophils # 0.3 Basophils # 0.0 Nucleated Red Blood Cells # 0.0 Sodium Level 142 Potassium Level 3.8 Chloride Level 104 Carbon Dioxide Level 27 Anion Gap 15 Blood Urea Nitrogen 16 Creatinine 0.63 Glucose Level 110 Hemoglobin A1c 6.0 H Calcium Level 8.7 Phosphorus Level 5.3 H Magnesium Level 1.7 Total Bilirubin 0.4 Direct Bilirubin 0.00 Indirect Bilirubin 0.4 Aspartate Amino Transf (AST/SGOT) 14 L Alanine Aminotransferase (ALT/SGPT) 22 Alkaline Phosphatase 55 Total Protein 6.8 Albumin 3.2 L Globulin 3.60 H Albumin/Globulin Ratio 0.88 Triglycerides Level 138 Cholesterol Level 124 LDL Cholesterol, Calculated 62 HDL Cholesterol 34 Cholesterol/HDL Ratio 3.6 Thyroid Stimulating Hormone (TSH) 0.691 Free Thyroxine Index 3.54 Thyroxine (T4) 8.5 Triiodothyronine (T3) Uptake 41.7 H Medications Medications Current Medications Cyanocobalamin (Vitamin B12) 100 mcg DAILY PO Last administered on 10/04/16t 09 :25; Admin Dose 100 MCG; Start 10/04/16 at 09:00 Diltiazem HCl (Cardizem Sr) 60 mg TID PO Last administered on 10/04/16 12:49; Admin Dose 60 MG; Start 10/03/16 at 18:00 Docusate Sodium (Colace) 250 mg DAILY PRN PO CONSTIPATION Last administered on 10/04/16 09:31; Admin Dose 250 MG; Start 10/03/16 at 15:00 Folic Acid (Folic Acid) 1 mg DAILY PO Last administered on 10/04/16 09:26; Admin Dose 1 MG; Start 10/04/16 at 09:00 Furosemide (Lasix) 20 mg DAILY PO Last administered on 10/04/16 09:25; Admin Dose 20 MG; Start 10/04/16 at 09:00 Losartan Potassium (Cozaar) 100 mg DAILY PO Last administered on 10/04/16 09: 26; Admin Dose 100 MG; Start 10/04/16 at 09:00 Senna/Docusate Sodium (Senokot-S) 1 tab DAILY PO Last administered on 09:26; Admin Dose 1 TAB; Start 10/04/16 at 09:00 Warfarin Sodium (Coumadin) 4 mg DAILY@17 PO ; Start 10/03/16 at 17:00; Status Future Hold Pantoprazole 40 mg 40 mg DAILY@06 PO Last administered on 10/04/16 05:05; Admin Dose 40 MG; Start 10/04/16 at 06:00 Cefepime HCl (Maxipime 2gm/50 ml (Pmx)) 50 ml @ 100 mls/hr Q24H IVPB Last administered on 10/04/16 12:47; Admin Dose 100 MLS/HR; Start 10/04/16 at 13:00 Miscellaneous Information (*Order Clarification Bulletin) MEDICATION REQUIRES CLARIFICATI... Q8H XX ; Start 10/03/16 at 16:00 Docusate Sodium (Colace) 100 mg Q12H PRN PO CONSTIPATION; Start 10/03/16 at 16: 00 Magnesium Hydroxide (Milk Of Mag) 30 ml DAILY PRN PO CONSTIPATION; Start at 16:00 Bisacodyl 10 mg 10 mg DAILY PRN [place] CONSTIPATION; Start 10/03/16 at 16:00 Vancomycin HCl (Vancocin) 250 ml @ 125 mls/hr Q24H IVPB ; Start 10/04/16 at 18: 00 Labetalol HCl (Labetalol) 10 mg Q4H PRN IV for SBP greater than 160 Last administered on 10/04/16 03:58; Admin Dose 10 MG; Start 10/03/16 at 21:00 Lorazepam (Ativan) 1 mg Q6H PRN PO ANXIETY Last administered on 10/04/16 01:02 ; Admin Dose 1 MG; Start 10/03/16 at 23:30 Tramadol HCl (Ultram) 50 mg Q6 PO Last administered on 10/04/16 09:38; Admin Dose 50 MG; Start 10/04/16 at 10:00 Hydromorphone HCl (Dilaudid) 0.5 mg Q4H PRN IV PAIN Last administered on 13:08; Admin Dose 0.5 MG; Start 10/04/16 at 13:00 HUMBERTO PERALTA Oct 04, 2016 15:08
[2016-10-04] MEDS: VANCOMYCIN 1 GM in NS 250 ML IVPB SCH (18:14)
--- NOTE | 2016-10-04 19:13 | CONS ---
Date/Time of Note Date/Time of Note DATE: 10/04/16 TIME: 18:55 Assessment/Plan Assessment/Plan Chief Complaint/Hosp Course 81-year-old female was brought in with the possible diagnosis of vaginal bleed however on the examination there is no vaginal bleeding but she does have hematuria. urine culture is pending. the appearance on the ct scan is suggestive of urinary tract infection and cystitis The hematuria most likely related to urinary tract infection and elevated INR for now we will observe and if she bleeds again then I will have to do a cystoscopy to make sure there is no bladder tumor Problems: Consultation Date/Type/Reason Admit Date/Time Oct 03, 2016 at 14:16 Date of Consultation: Oct 04, 2016 Type of Consultation: Urology Reason for Consultation Gross hematuria Hx of Present Illness This is an 81-year-old female with past medical history of DVT of both lower extremities in 1993 and has been on Coumadin, hypertension, sciatica, osteoporosis, colon prolapse surgery, uterine prolapse status post surgery, dementia, rheumatoid arthritis. She came to [facility] due to reports of vaginal bleeding for 3-4 days. Of note patient was seen with INR of 3.42 which is supratherapeutic. Patient is also postmenopausal. Patient also reported having some associated dysuria and urinary frequency as well as some shortness of breath. She was treated for bronchitis before this happened CT scan of the abdomen and pelvis was done and that showed bladder wall thickening and many bladder diverticulae suggestive of cystitis. Urine was collected by catheterization in the emergency room and sent for culture and sensitivity and that is still pending Subjective hx not possible: other (Patient does not speak Divehi but her daughter at her bedside who help translate) Constitutional: no complaints Eyes: no complaints ENT: no complaints Respiratory: No cough, No shortness of breath, No wheezing Cardiovascular: no complaints, No chest pain Gastrointestinal: no complaints, No diarrhea, No nausea Genitourinary: dysuria, other (Urinary incontinence) Musculoskeletal: no complaints Skin: no complaints Neurologic: no complaints Endocrine: no complaints Lymphatic: No adenopathy Past Medical History Medical History: deep vein thrombosis, hypertension, other (Arthritis, osteoporosis,) Past Surgical History Past Surgical Hx: other (Varicose veins ligation and stripping) Family History Significant Family History: no pertinent family hx Social History Alcohol Use: sober Smoking Status: Never smoker Drug Use: none Exam/Review of Systems Vital Signs Vitals Vital Signs Date Time Temp Pulse Resp B/P Pulse Ox O2 Delivery O2 Flow Rate FiO2 10/04/16 16:24 83 10/04/16 15:40 99.2 18 139/80 98 10/04/16 11:30 Nasal Cannula 3.0 Intake and Output 10/03/16 10/03/16 10/04/16 15:00 23:00 07:00 Intake Total 660 ml 1140 ml Balance 660 ml 1140 ml Exam Constitutional: alert, oriented Psych: no complaints Head: normocephalic Eyes: nl conjunctiva ENMT: nl external ears & nose Neck: non-tender, supple Respiratory: normal air movement Cardiovascular: nl pulses Gastrointestinal: other (Obese abdomen), soft Genitourinary - Female: other (Pelvic exam did not show any bleeding on the examining finger or in the vagina), No CVA tenderness Results CT scan of the abdomen and pelvis: 1. Urinary bladder wall appears thickened, with adjacent inflammatory stranding , concerning for cystitis. Multiple bladder diverticula are incidentally noted. 2. Endometrial thickness measures 10 mm, above normal limits in a postmenopausal patient - consider further evaluation to exclude endometrial neoplasm. 3. No urolithiasis or obstructive uropathy is identified. 4. Mild cardiomegaly. Coronary arterial and aortoiliac atherosclerotic calcifications. 5. Small hiatal hernia. 6. Sigmoid diverticulosis, without diverticulitis. Result Diagram: 10/04/1651 10/04/1651 Results 24 hrs Laboratory Tests Test 10/04/16 09:51 White Blood Count 4.5 #L Red Blood Count 4.02 L Hemoglobin 12.3 Hematocrit 38.4 Mean Corpuscular Volume 95.5 Mean Corpuscular Hemoglobin 30.6 Mean Corpuscular Hemoglobin Concent 32.0 Red Cell Distribution Width 14.8 H Platelet Count 220 Mean Platelet Volume 10.7 H Neutrophils % 50.7 Lymphocytes % 32.2 Monocytes % 10.0 Eosinophils % 6.0 Basophils % 0.9 Nucleated Red Blood Cells % 0.0 Neutrophils # (Manual) 2.3 Lymphocytes # 1.5 Monocytes # 0.5 Eosinophils # 0.3 Basophils # 0.0 Nucleated Red Blood Cells # 0.0 Sodium Level 142 Potassium Level 3.8 Chloride Level 104 Carbon Dioxide Level 27 Anion Gap 15 Blood Urea Nitrogen 16 Creatinine 0.63 Glucose Level 110 Hemoglobin A1c 6.0 H Calcium Level 8.7 Phosphorus Level 5.3 H Magnesium Level 1.7 Total Bilirubin 0.4 Direct Bilirubin 0.00 Indirect Bilirubin 0.4 Aspartate Amino Transf (AST/SGOT) 14 L Alanine Aminotransferase (ALT/SGPT) 22 Alkaline Phosphatase 55 Total Protein 6.8 Albumin 3.2 L Globulin 3.60 H Albumin/Globulin Ratio 0.88 Triglycerides Level 138 Cholesterol Level 124 LDL Cholesterol, Calculated 62 HDL Cholesterol 34 Cholesterol/HDL Ratio 3.6 Thyroid Stimulating Hormone (TSH) 0.691 Free Thyroxine Index 3.54 Thyroxine (T4) 8.5 Triiodothyronine (T3) Uptake 41.7 H Medications Medications Current Medications Cyanocobalamin (Vitamin B12) 100 mcg DAILY PO Last administered on 10/04/16 09 :25; Admin Dose 100 MCG; Start 10/04/16 at 09:00 Diltiazem HCl (Cardizem Sr) 60 mg TID PO Last administered on 10/04/16 12:49; Admin Dose 60 MG; Start 10/03/16 at 18:00 Docusate Sodium (Colace) 250 mg DAILY PRN PO CONSTIPATION Last administered on 10/04/16 09:31; Admin Dose 250 MG; Start 10/03/16 at 15:00 Folic Acid (Folic Acid) 1 mg DAILY PO Last administered on 10/04/16 09:26; Admin Dose 1 MG; Start 10/04/16 at 09:00 Furosemide (Lasix) 20 mg DAILY PO Last administered on 10/04/16 09:25; Admin Dose 20 MG; Start 10/04/16 at 09:00 Losartan Potassium (Cozaar) 100 mg DAILY PO Last administered on 10/04/16 09: 26; Admin Dose 100 MG; Start 10/04/16 at 09:00 Senna/Docusate Sodium (Senokot-S) 1 tab DAILY PO Last administered on 09:26; Admin Dose 1 TAB; Start 10/04/16 at 09:00 Warfarin Sodium (Coumadin) 4 mg DAILY@17 PO ; Start 10/03/16 at 17:00; Status Future Hold Pantoprazole 40 mg 40 mg DAILY@06 PO Last administered on 10/04/16 05:05; Admin Dose 40 MG; Start 10/04/16 at 06:00 Cefepime HCl (Maxipime 2gm/50 ml (Pmx)) 50 ml @ 100 mls/hr Q24H IVPB Last administered on 10/04/16 12:47; Admin Dose 100 MLS/HR; Start 10/04/16 at 13:00 Miscellaneous Information (*Order Clarification Bulletin) MEDICATION REQUIRES CLARIFICATI... Q8H XX ; Start 10/03/16 at 16:00 Docusate Sodium (Colace) 100 mg Q12H PRN PO CONSTIPATION; Start 10/03/16 at 16: 00 Magnesium Hydroxide (Milk Of Mag) 30 ml DAILY PRN PO CONSTIPATION; Start at 16:00 Bisacodyl 10 mg 10 mg DAILY PRN [place] CONSTIPATION; Start 10/03/16 at 16:00 Vancomycin HCl (Vancocin) 250 ml @ 125 mls/hr Q24H IVPB Last administered on 18:14; Admin Dose 125 MLS/HR; Start 10/04/16 at 18:00 Labetalol HCl (Labetalol) 10 mg Q4H PRN IV for SBP greater than 160 Last administered on 10/04/16 03:58; Admin Dose 10 MG; Start 10/03/16 at 21:00 Lorazepam (Ativan) 1 mg Q6H PRN PO ANXIETY Last administered on 10/04/16 01:02 ; Admin Dose 1 MG; Start 10/03/16 at 23:30 Tramadol HCl (Ultram) 50 mg Q6 PO Last administered on 10/04/16 16:50; Admin Dose 50 MG; Start 10/04/16 at 10:00 Hydromorphone HCl (Dilaudid) 0.5 mg Q4H PRN IV PAIN Last administered on 17:23; Admin Dose 0.5 MG; Start 10/04/16 at 13:00 GUERDA COLON MD Oct 04, 2016 19:07
[2016-10-05] VITALS (11 sets, daily range): BP systolic 142–193; BP diastolic 78–88; PULSE 86–113; RESP 16–21
[2016-10-05] MEDS: LABETALOL HCL 20MG INJ IV PRN (00:13)
[2016-10-05] MEDS: HYDROmorphONE 1 MG/ML SYG IV PRN ×5 (01:37→22:46)
[2016-10-05] MEDS: PANTOPRAZOLE (EC) 40 MG TAB PO SCH (06:38)
[2016-10-05] MEDS: traMADol 50 MG TAB PO SCH ×3 (06:38→17:29)
[2016-10-05 07:28] LABS: BASOPHILS % 0.5 % (0.0-2.0); EOSINOPHILS # 0.3 10^3/ul (0.0-0.5); HEMATOCRIT 38.3 % (37.0-47.0); LYMPHOCYTES # 1.6 10^3/ul (0.8-2.9); LYMPHOCYTES % 23.6 % (15.0-51.0); MEAN CORPUSCULAR HEMOGLOBIN 29.5 pg (29.0-33.0); MEAN CORPUSCULAR HGB CONC 31.3 g/dl (32.0-37.0); MEAN CORPUSCULAR VOLUME 94.1 fl (82.0-101.0); MEAN PLATELET VOLUME 11.1 fl (7.4-10.4); MONOCYTE # 0.7 10^3/ul (0.3-0.9); MONOCYTES % 10.3 % (0.0-11.0); NEUTROPHILS % 60.4 % (39.0-77.0); PLATELET COUNT 214 10^3/UL (140-415); RED BLOOD COUNT 4.07 10^6/ul (4.20-5.40); RED CELL DISTRIBUTION WIDTH 14.9 % (11.5-14.5); WHITE BLOOD COUNT 6.6 10^3/ul (4.8-10.8)
[2016-10-05 07:56] LABS: CALCIUM 8.8 mg/dl (8.4-10.2); CREATININE 0.47 mg/dl (0.44-1.00); POTASSIUM 3.6 mmol/L (3.5-5.1)
[2016-10-05] MEDS: ENBREL XX SCH ×3 (09:26→17:49)
[2016-10-05] MEDS: DILTIAZEM (SR) 60 MG CAP PO SCH ×3 (09:26→21:17)
[2016-10-05] MEDS: SENNA/DOCUSATE NA (8.6MG/50MG) TAB PO SCH (09:27)
[2016-10-05] MEDS: CYANOCOBALAMIN 100 MCG TAB PO SCH (09:27)
[2016-10-05] MEDS: LOSARTAN 50 MG TAB PO SCH (09:27)
[2016-10-05] MEDS: FOLIC ACID 1 MG TAB PO SCH (09:28)
[2016-10-05] MEDS: FUROSEMIDE 20 MG TAB PO SCH (09:28)
--- NOTE | 2016-10-05 12:25 | CONS ---
Date/Time of Note Date/Time of Note DATE: 10/05/16 TIME: 12:22 Consult Date/Type/Reason Admit Date/Time Oct 03, 2016 at 14:16 Initial Consult Date 10/04/16 Type of Consultation: Pulmonary Subjective Patient remains stable this morning. Still has occasional cough. Objective Vital Signs Date Time Temp Pulse Resp B/P Pulse Ox O2 Delivery O2 Flow Rate FiO2 10/05/16 11:17 97.7 86 21 193/83 98 10/04/16 20:00 Nasal Cannula 2.0 Intake and Output 10/04/16 10/04/16 10/05/16 15:00 23:00 07:00 Intake Total 50 ml 750 ml 400 ml Balance 50 ml 750 ml 400 ml Exam GENERAL: Elderly [place] lady comfortable at rest VITAL SIGNS: per chart NECK: Supple. No JVD or lymphadenopathy. CARDIAC EXAM: S1, S2. No added sounds or murmurs. CHEST: Diminished air entry bilaterally ABDOMEN: Soft, nontender. No guarding or rebound. EXTREMITIES: No cyanosis, clubbing, edema +2 NEUROLOGIC: Generalized weakness. No focal deficits. Results/Medications Result Diagram: 10/05/16 0636 10/05/16 0636 Results 24 hrs Laboratory Tests Test 10/05/16 06:36 White Blood Count 6.6 # Red Blood Count 4.07 L Hemoglobin 12.0 Hematocrit 38.3 Mean Corpuscular Volume 94.1 Mean Corpuscular Hemoglobin 29.5 Mean Corpuscular Hemoglobin Concent 31.3 L Red Cell Distribution Width 14.9 H Platelet Count 214 Mean Platelet Volume 11.1 H Neutrophils % 60.4 Lymphocytes % 23.6 Monocytes % 10.3 Eosinophils % 5.0 Basophils % 0.5 Nucleated Red Blood Cells % 0.0 Neutrophils # (Manual) 4.0 Lymphocytes # 1.6 Monocytes # 0.7 Eosinophils # 0.3 Basophils # 0.0 Nucleated Red Blood Cells # 0.0 Sodium Level 138 Potassium Level 3.6 Chloride Level 104 Carbon Dioxide Level 28 Anion Gap 10 # Blood Urea Nitrogen 12 Creatinine 0.47 Glucose Level 96 Calcium Level 8.8 Medications Current Medications Cyanocobalamin (Vitamin B12) 100 mcg DAILY PO Last administered on 10/05/16t 09 :27; Admin Dose 100 MCG; Start 10/04/16 at 09:00 Diltiazem HCl (Cardizem Sr) 60 mg TID PO Last administered on 10/05/16 09:26; Admin Dose 60 MG; Start 10/03/16 at 18:00 Docusate Sodium (Colace) 250 mg DAILY PRN PO CONSTIPATION Last administered on 10/04/16 09:31; Admin Dose 250 MG; Start 10/03/16 at 15:00 Folic Acid (Folic Acid) 1 mg DAILY PO Last administered on 10/05/16 09:28; Admin Dose 1 MG; Start 10/04/16 at 09:00 Furosemide (Lasix) 20 mg DAILY PO Last administered on 10/05/16 09:28; Admin Dose 20 MG; Start 10/04/16 at 09:00 Losartan Potassium (Cozaar) 100 mg DAILY PO Last administered on 10/05/16 09: 27; Admin Dose 100 MG; Start 10/04/16 at 09:00 Senna/Docusate Sodium (Senokot-S) 1 tab DAILY PO Last administered on 09:27; Admin Dose 1 TAB; Start 10/04/16 at 09:00 Warfarin Sodium (Coumadin) 4 mg DAILY@17 PO ; Start 10/03/16 at 17:00; Status Future Hold Pantoprazole 40 mg 40 mg DAILY@06 PO Last administered on 10/05/16 06:38; Admin Dose 40 MG; Start 10/04/16 at 06:00 Cefepime HCl (Maxipime 2gm/50 ml (Pmx)) 50 ml @ 100 mls/hr Q24H IVPB Last administered on 10/04/16 12:47; Admin Dose 100 MLS/HR; Start 10/04/16 at 13:00 Miscellaneous Information (*Order Clarification Bulletin) MEDICATION REQUIRES CLARIFICATI... Q8H XX ; Start 10/03/16 at 16:00 Docusate Sodium (Colace) 100 mg Q12H PRN PO CONSTIPATION; Start 10/03/16 at 16: 00 Magnesium Hydroxide (Milk Of Mag) 30 ml DAILY PRN PO CONSTIPATION; Start at 16:00 Bisacodyl 10 mg 10 mg DAILY PRN [place] CONSTIPATION; Start 10/03/16 at 16:00 Vancomycin HCl (Vancocin) 250 ml @ 125 mls/hr Q24H IVPB Last administered on 18:14; Admin Dose 125 MLS/HR; Start 10/04/16 at 18:00 Labetalol HCl (Labetalol) 10 mg Q4H PRN IV for SBP greater than 160 Last administered on 10/05/16 00:13; Admin Dose 10 MG; Start 10/03/16 at 21:00 Lorazepam (Ativan) 1 mg Q6H PRN PO ANXIETY Last administered on 10/04/16 20:27 ; Admin Dose 1 MG; Start 10/03/16 at 23:30 Tramadol HCl (Ultram) 50 mg Q6 PO Last administered on 10/05/16 11:42; Admin Dose 50 MG; Start 10/04/16 at 10:00 Hydromorphone HCl (Dilaudid) 0.5 mg Q4H PRN IV PAIN Last administered on 11:40; Admin Dose 0.5 MG; Start 10/04/16 at 13:00 Assessment/Plan Chief Complaint/Hosp Course IMPRESSION: 1. Significant radiographic changes concerning for pneumonia. However, no significant leukocytosis or fever. The concern is for underlying malignancy. 2. Vaginal bleeding concerning for possible endometrial malignancy. RECOMMENDATIONS: 1. Gynecology recommendations 2. CT chest pending 3. Continue broad-spectrum antibiotic coverage. 4. Deep vein thrombosis and gastrointestinal prophylaxis. 5. Discussed with daughter at bedside. Overall prognosis is guarded which the patient's daughter understands. She agrees that patient would benefit from care at halfway facility and already has identified a place. Consider discharge planning to halfway facility of daughter's choice. Problems: SERGIO BERGER MD, [facility] Oct 05, 2016 12:25
--- NOTE | 2016-10-05 13:14 | CONS ---
Date/Time of Note Date/Time of Note DATE: 10/05/16 TIME: 13:10 Assessment/Plan Assessment/Plan Additional Assessment/Plan Met with patient's daughter today concerning pain control. She gives me a background the patient has been on multiple different opioids in the past high doses and demand her medications at this time telling the daughter to go home and get them. I reminded her that patient came in altered and was my concern that this was secondary to opioid overdose. However that is in addition to other issues that she had on presentation including pneumonia and respiratory failure. She states she wanted her mother's pain go away completely, I explained to her that that is not possible without sedating her. She insisted giving her mother something different however the mother is on combination of tramadol and IV push Dilaudid which I explained to her is a adequate dose for an 81-year-old person. Patient does not have an underlying malignancy she is not a victim of trauma, she does have rheumatoid arthritis but I am still hesitant to give the amounts of opioids at the family insist upon. I have explained this in detail to both sisters I assured them we will try and control her pain without doing harm. Consultation Date/Type/Reason Admit Date/Time Oct 03, 2016 at 14:16 Initial Consult Date 10/04/16 Type of Consultation: Pulmonary Exam/Review of Systems Vital Signs Vitals Vital Signs Date Time Temp Pulse Resp B/P Pulse Ox O2 Delivery O2 Flow Rate FiO2 10/05/16 12:00 99 10/05/16 11:17 97.7 21 193/83 98 10/04/16 20:00 Nasal Cannula 2.0 Intake and Output 10/04/16 10/04/16 10/05/16 15:00 23:00 07:00 Intake Total 50 ml 750 ml 400 ml Balance 50 ml 750 ml 400 ml Results Result Diagram: 10/05/16 0636 10/05/16 0636 Results 24 hrs Laboratory Tests Test 10/05/16 06:36 White Blood Count 6.6 # Red Blood Count 4.07 L Hemoglobin 12.0 Hematocrit 38.3 Mean Corpuscular Volume 94.1 Mean Corpuscular Hemoglobin 29.5 Mean Corpuscular Hemoglobin Concent 31.3 L Red Cell Distribution Width 14.9 H Platelet Count 214 Mean Platelet Volume 11.1 H Neutrophils % 60.4 Lymphocytes % 23.6 Monocytes % 10.3 Eosinophils % 5.0 Basophils % 0.5 Nucleated Red Blood Cells % 0.0 Neutrophils # (Manual) 4.0 Lymphocytes # 1.6 Monocytes # 0.7 Eosinophils # 0.3 Basophils # 0.0 Nucleated Red Blood Cells # 0.0 Sodium Level 138 Potassium Level 3.6 Chloride Level 104 Carbon Dioxide Level 28 Anion Gap 10 # Blood Urea Nitrogen 12 Creatinine 0.47 Glucose Level 96 Calcium Level 8.8 Medications Medications Current Medications Cyanocobalamin (Vitamin B12) 100 mcg DAILY PO Last administered on 10/05/16 09 :27; Admin Dose 100 MCG; Start 10/04/16 at 09:00 Diltiazem HCl (Cardizem Sr) 60 mg TID PO Last administered on 10/05/16 09:26; Admin Dose 60 MG; Start 10/03/16 at 18:00 Docusate Sodium (Colace) 250 mg DAILY PRN PO CONSTIPATION Last administered on 10/04/16 09:31; Admin Dose 250 MG; Start 10/03/16 at 15:00 Folic Acid (Folic Acid) 1 mg DAILY PO Last administered on 10/05/16 09:28; Admin Dose 1 MG; Start 10/04/16 at 09:00 Furosemide (Lasix) 20 mg DAILY PO Last administered on 10/05/16 09:28; Admin Dose 20 MG; Start 10/04/16 at 09:00 Losartan Potassium (Cozaar) 100 mg DAILY PO Last administered on 10/05/16 09: 27; Admin Dose 100 MG; Start 10/04/16 at 09:00 Senna/Docusate Sodium (Senokot-S) 1 tab DAILY PO Last administered on 09:27; Admin Dose 1 TAB; Start 10/04/16 at 09:00 Warfarin Sodium (Coumadin) 4 mg DAILY@17 PO ; Start 10/03/16 at 17:00; Status Future Hold Pantoprazole 40 mg 40 mg DAILY@06 PO Last administered on 10/05/16 06:38; Admin Dose 40 MG; Start 10/04/16 at 06:00 Cefepime HCl (Maxipime 2gm/50 ml (Pmx)) 50 ml @ 100 mls/hr Q24H IVPB Last administered on 10/04/16 12:47; Admin Dose 100 MLS/HR; Start 10/04/16 at 13:00 Miscellaneous Information (*Order Clarification Bulletin) MEDICATION REQUIRES CLARIFICATI... Q8H XX ; Start 10/03/16 at 16:00 Docusate Sodium (Colace) 100 mg Q12H PRN PO CONSTIPATION; Start 10/03/16 at 16: 00 Magnesium Hydroxide (Milk Of Mag) 30 ml DAILY PRN PO CONSTIPATION; Start at 16:00 Bisacodyl 10 mg 10 mg DAILY PRN [place] CONSTIPATION; Start 10/03/16 at 16:00 Vancomycin HCl (Vancocin) 250 ml @ 125 mls/hr Q24H IVPB Last administered on 18:14; Admin Dose 125 MLS/HR; Start 10/04/16 at 18:00 Labetalol HCl (Labetalol) 10 mg Q4H PRN IV for SBP greater than 160 Last administered on 10/05/16 00:13; Admin Dose 10 MG; Start 10/03/16 at 21:00 Lorazepam (Ativan) 1 mg Q6H PRN PO ANXIETY Last administered on 10/04/16 20:27 ; Admin Dose 1 MG; Start 10/03/16 at 23:30 Tramadol HCl (Ultram) 50 mg Q6 PO Last administered on 10/05/16 11:42; Admin Dose 50 MG; Start 10/04/16 at 10:00 Hydromorphone HCl (Dilaudid) 0.5 mg Q4H PRN IV PAIN Last administered on 11:40; Admin Dose 0.5 MG; Start 10/04/16 at 13:00 PRANAV REHMAN Oct 05, 2016 13:14
[2016-10-05] MEDS: CEFEPIME 2GM/50 ML (PMX) 50 ML IVPB SCH (13:24)
[2016-10-05] MEDS: AMLODIPINE 5 MG TAB PO SCH ×2 (13:31→21:17)
--- NOTE | 2016-10-05 14:13 | PN ---
Date/Time of Note Date/Time of Note DATE: 10/05/16 TIME: 14:11 Assessment/Plan VTE Prophylaxis VTE Prophylaxis Intervention: SCD's Lines/Catheters IV Catheter Type (from [facility]): [facility] Urinary Cath still in place: No Assessment/Plan Chief Complaint/Hosp Course Impression and plan 1. Postmenopausal vaginal bleeding vs. suspect hematuria. Patient did have CT scan of her abdomen and pelvis that did show endometrial thickness measuring 10 mm were normal limits in a postmenopausal patient with report considering further evaluation to exclude endometrial neoplasm. . Patient also noted with UTI. Will monitor for now. Monitor H&H. Urologist consulted. continue with recommendations Patient will also be advised for referral to printer slotter helper as outpatient. 2. Pneumonia. Awaiting CT scan of the chest.. Continue antibiotics for now.. Of note patient was given diagnosis of pneumonia 10 days prior to this admission was given 10 days of antibiotics. continue with route manager recs 3. Urinary tract infection with cystitis. Continue antibiotics for now. Follow-up on urine culture. Of note patient did have abdominal pelvic CT scan suggestive of cystitis. 4. Essential hypertension. Continue antihypertensives and adjust needed 5. Sciatica with back pain. Continue with analgesics 6. Deconditioning. Physical therapy to follow. 7. Hematuria. Follow-up with urologist recommendations. Monitor H&H Disposition and plan: Awaiting CT scan of the chest. Continue with neurologist recommendations. Monitor H&H. Continue in-house monitoring. Discussed plan of care with Dr. Burns Problems: Subjective 24 Hr Interval Summary Free Text/Dictation No signs or symptoms of distress. Family at bedside. Exam/Review of Systems Vital Signs Vitals Vital Signs Date Time Temp Pulse Resp B/P Pulse Ox O2 Delivery O2 Flow Rate FiO2 10/05/16 12:00 99 10/05/16 11:17 97.7 21 193/83 98 10/05/16 08:10 Nasal Cannula 2.0 Intake and Output 10/04/16 10/04/16 10/05/16 15:00 23:00 07:00 Intake Total 50 ml 750 ml 400 ml Balance 50 ml 750 ml 400 ml Exam Constitutional: alert, other (Hard of hearing, obese) Head: normocephalic Neck: supple Respiratory: other (Minimally diminished at lung bases. 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, nl speech Results Result Diagram: 10/05/16 0636 10/05/16 0636 Results 24 hrs Laboratory Tests Test 10/05/16 06:36 White Blood Count 6.6 # Red Blood Count 4.07 L Hemoglobin 12.0 Hematocrit 38.3 Mean Corpuscular Volume 94.1 Mean Corpuscular Hemoglobin 29.5 Mean Corpuscular Hemoglobin Concent 31.3 L Red Cell Distribution Width 14.9 H Platelet Count 214 Mean Platelet Volume 11.1 H Neutrophils % 60.4 Lymphocytes % 23.6 Monocytes % 10.3 Eosinophils % 5.0 Basophils % 0.5 Nucleated Red Blood Cells % 0.0 Neutrophils # (Manual) 4.0 Lymphocytes # 1.6 Monocytes # 0.7 Eosinophils # 0.3 Basophils # 0.0 Nucleated Red Blood Cells # 0.0 Sodium Level 138 Potassium Level 3.6 Chloride Level 104 Carbon Dioxide Level 28 Anion Gap 10 # Blood Urea Nitrogen 12 Creatinine 0.47 Glucose Level 96 Calcium Level 8.8 Medications Medications Current Medications Cyanocobalamin (Vitamin B12) 100 mcg DAILY PO Last administered on 10/05/16 09 :27; Admin Dose 100 MCG; Start 10/04/16 at 09:00 Diltiazem HCl (Cardizem Sr) 60 mg TID PO Last administered on 10/05/16 13:28; Admin Dose 60 MG; Start 10/03/16 at 18:00 Docusate Sodium (Colace) 250 mg DAILY PRN PO CONSTIPATION Last administered on 10/04/16 09:31; Admin Dose 250 MG; Start 10/03/16 at 15:00 Folic Acid (Folic Acid) 1 mg DAILY PO Last administered on 10/05/16 09:28; Admin Dose 1 MG; Start 10/04/16 at 09:00 Furosemide (Lasix) 20 mg DAILY PO Last administered on 10/05/16 09:28; Admin Dose 20 MG; Start 10/04/16 at 09:00 Losartan Potassium (Cozaar) 100 mg DAILY PO Last administered on 10/05/16 09: 27; Admin Dose 100 MG; Start 10/04/16 at 09:00 Senna/Docusate Sodium (Senokot-S) 1 tab DAILY PO Last administered on 09:27; Admin Dose 1 TAB; Start 10/04/16 at 09:00 Warfarin Sodium (Coumadin) 4 mg DAILY@17 PO ; Start 10/03/16 at 17:00; Status Future Hold Pantoprazole 40 mg 40 mg DAILY@06 PO Last administered on 10/05/16 06:38; Admin Dose 40 MG; Start 10/04/16 at 06:00 Cefepime HCl (Maxipime 2gm/50 ml (Pmx)) 50 ml @ 100 mls/hr Q24H IVPB Last administered on 10/05/16 13:24; Admin Dose 100 MLS/HR; Start 10/04/16 at 13:00 Miscellaneous Information (*Order Clarification Bulletin) MEDICATION REQUIRES CLARIFICATI... Q8H XX ; Start 10/03/16 at 16:00 Docusate Sodium (Colace) 100 mg Q12H PRN PO CONSTIPATION; Start 10/03/16 at 16: 00 Magnesium Hydroxide (Milk Of Mag) 30 ml DAILY PRN PO CONSTIPATION; Start at 16:00 Bisacodyl 10 mg 10 mg DAILY PRN [place] CONSTIPATION; Start 10/03/16 at 16:00 Vancomycin HCl (Vancocin) 250 ml @ 125 mls/hr Q24H IVPB Last administered on 18:14; Admin Dose 125 MLS/HR; Start 10/04/16 at 18:00 Labetalol HCl (Labetalol) 10 mg Q4H PRN IV for SBP greater than 160 Last administered on 10/05/16 00:13; Admin Dose 10 MG; Start 10/03/16 at 21:00 Lorazepam (Ativan) 1 mg Q6H PRN PO ANXIETY Last administered on 10/04/16 20:27 ; Admin Dose 1 MG; Start 10/03/16 at 23:30 Hydromorphone HCl (Dilaudid) 0.5 mg Q4H PRN IV PAIN Last administered on 11:40; Admin Dose 0.5 MG; Start 10/04/16 at 13:00 Tramadol HCl (Ultram) 100 mg Q6 PO ; Start 10/05/16 at 18:00 Amlodipine Besylate (Norvasc) 5 mg BID PO Last administered on 10/05/16 13:31 ; Admin Dose 5 MG; Start 10/05/16 at 13:30 HUMBERTO PERALTA Oct 05, 2016 14:13
--- NOTE | 2016-10-05 15:18 | RADRPT ---
PROCEDURE: CT Chest without contrast. CLINICAL INDICATION: Abnormal chest x-ray. Possible hilar mass. TECHNIQUE: Multiple contiguous helical CT images of the chest were obtained without the administra tion of intravenous contrast. Coronal and sagittal reformatted images were obtained from the source images. CTDIvol (mGy): 15.68; Total Exam DLP (mGy-cm): 578.78. One or more of the following dose reduction techniques were utilized: - Automated exposure control. - Adjustment of the mA and/or kV according to patient size. - Use of iterative reconstruction technique. COMPARISON: Chest x-ray 10/03/2016. FINDINGS: Limited imaging of the lower neck demonstrates diffuse enlargement and heterogeneity of the thyroid gland. The heart is enlarged. There is no pericardial effusion. There is no mediastinal, hilar or axillar y lymphadenopathy. The thoracic aorta is normal in caliber. Thoracic aortic and coronary artery ath erosclerotic calcification is present. The pulmonary arteries are not enlarged. Low lung volumes are observed. Mild nonspecific chronic interstitial changes are seen bilaterally. There is no pulmonary consolidation, pleural effusion or concerning pulmonary nodule. The tracheob ronchial tree is normal in caliber. Mild diffuse bronchial wall thickening is observed. Mild right basilar atelectatic changes versus scarring is present. Limited imaging of the upper abdomen demonstrates a small hiatal hernia. Bone density is decreased. The density of the T12 vertebral body is approximately 85 HU. A severe old L1 compression fracture is present. Degenerative changes are seen throughout the thoracic spine . There is an old displaced fracture of the manubrium. Old and healing bilateral rib fractures are observed. IMPRESSION: No evidence of mass, lymphadenopathy or acute inflammatory pathology of the chest. Low lung volumes with mild nonspecific chronic interstitial changes and right basilar atelectatic ch anges versus scarring. Cardiomegaly and atherosclerosis. Low bone density with severe old T1 compression fracture and multilevel degenerative changes of the thoracic spine. Bilateral rib fractures, old and healing. RPTAT: HLST .Trena Kong MD, Date Time Electronically viewed and signed by .Trena Kong MD, on 10/05/2016 15:18 .T/
[2016-10-05] MEDS: LORAZEPAM 1 MG TAB PO PRN (15:41)
[2016-10-05] MEDS: VANCOMYCIN 1 GM in NS 250 ML IVPB SCH (18:40)
--- NOTE | 2016-10-05 19:19 | PN ---
Date/Time of Note Date/Time of Note DATE: 10/05/16 TIME: 19:06 Assessment/Plan VTE Prophylaxis VTE Prophylaxis Intervention: contraindicated (Because of the bleeding that she had) VTE Contraindication Reason: bleeding Lines/Catheters IV [facility]from [facility] Urinary Cath still in place: No Assessment/Plan Chief Complaint/Hosp Course 81-year-old female was brought in with the possible diagnosis of vaginal bleed however on the examination there is no vaginal bleeding but she does have hematuria. urine culture is still pending. the appearance on the ct scan is suggestive of urinary tract infection and cystitis The hematuria most likely related to urinary tract infection and elevated INR. Recheck PT and INR in a.m. May request a HEARING STENOGRAPHER consultation to have their opinion whether there is any endometrial or vaginal bleeding Problems: Subjective 24 Hr Interval Summary Subjective hx not possible: pt non-verbal, other (Daughter at bedside and the patient denying any pain) Constitutional: no complaints Eyes: no complaints ENT: no complaints Respiratory: no complaints Cardiovascular: no complaints Gastrointestinal: other (Rectal prolapse) Genitourinary: No bleeding, No hematuria Musculoskeletal: no complaints Skin: no complaints Neurologic: no complaints Exam/Review of Systems Vital Signs Vitals Vital Signs Date Time Temp Pulse Resp B/P Pulse Ox O2 Delivery O2 Flow Rate FiO2 10/05/16 16:00 113 10/05/16 15:04 97.2 16 182/88 98 10/05/16 08:10 Nasal Cannula 2.0 Intake and Output 10/04/16 10/04/16 10/05/16 15:00 23:00 07:00 Intake Total 50 ml 750 ml 400 ml Balance 50 ml 750 ml 400 ml Exam Constitutional: alert Psych: no complaints Head: normocephalic Eyes: nl conjunctiva ENMT: nl external ears & nose Neck: non-tender Respiratory: normal air movement Gastrointestinal: other (I did inspect her rectal area and there was no prolapse of the moment but it appears she has a prolapse especially when she has a bowel movement), soft Genitourinary - Female: other (I repeated the pelvic exam and did not see any blood on my gloves) Musculoskeletal: other (Lower extremities skin lesions and swelling of her knees) Results Result Diagram: 10/05/16 0636 10/05/16 0636 Results 24 hrs Laboratory Tests Test 10/05/16 06:36 White Blood Count 6.6 # Red Blood Count 4.07 L Hemoglobin 12.0 Hematocrit 38.3 Mean Corpuscular Volume 94.1 Mean Corpuscular Hemoglobin 29.5 Mean Corpuscular Hemoglobin Concent 31.3 L Red Cell Distribution Width 14.9 H Platelet Count 214 Mean Platelet Volume 11.1 H Neutrophils % 60.4 Lymphocytes % 23.6 Monocytes % 10.3 Eosinophils % 5.0 Basophils % 0.5 Nucleated Red Blood Cells % 0.0 Neutrophils # (Manual) 4.0 Lymphocytes # 1.6 Monocytes # 0.7 Eosinophils # 0.3 Basophils # 0.0 Nucleated Red Blood Cells # 0.0 Sodium Level 138 Potassium Level 3.6 Chloride Level 104 Carbon Dioxide Level 28 Anion Gap 10 # Blood Urea Nitrogen 12 Creatinine 0.47 Glucose Level 96 Calcium Level 8.8 Medications Medications Current Medications Cyanocobalamin (Vitamin B12) 100 mcg DAILY PO Last administered on 10/05/16 09 :27; Admin Dose 100 MCG; Start 10/04/16 at 09:00 Diltiazem HCl (Cardizem Sr) 60 mg TID PO Last administered on 10/05/16 13:28; Admin Dose 60 MG; Start 10/03/16 at 18:00 Docusate Sodium (Colace) 250 mg DAILY PRN PO CONSTIPATION Last administered on 10/04/16 09:31; Admin Dose 250 MG; Start 10/03/16 at 15:00 Folic Acid (Folic Acid) 1 mg DAILY PO Last administered on 10/05/16 09:28; Admin Dose 1 MG; Start 10/04/16 at 09:00 Furosemide (Lasix) 20 mg DAILY PO Last administered on 10/05/16 09:28; Admin Dose 20 MG; Start 10/04/16 at 09:00 Losartan Potassium (Cozaar) 100 mg DAILY PO Last administered on 10/05/16 09: 27; Admin Dose 100 MG; Start 10/04/16 at 09:00 Senna/Docusate Sodium (Senokot-S) 1 tab DAILY PO Last administered on 09:27; Admin Dose 1 TAB; Start 10/04/16 at 09:00 Warfarin Sodium (Coumadin) 4 mg DAILY@17 PO ; Start 10/03/16 at 17:00; Status Future Hold Pantoprazole 40 mg 40 mg DAILY@06 PO Last administered on 10/05/16 06:38; Admin Dose 40 MG; Start 10/04/16 at 06:00 Cefepime HCl (Maxipime 2gm/50 ml (Pmx)) 50 ml @ 100 mls/hr Q24H IVPB Last administered on 10/05/16 13:24; Admin Dose 100 MLS/HR; Start 10/04/16 at 13:00 Miscellaneous Information (*Order Clarification Bulletin) MEDICATION REQUIRES CLARIFICATI... Q8H XX ; Start 10/03/16 at 16:00 Docusate Sodium (Colace) 100 mg Q12H PRN PO CONSTIPATION; Start 10/03/16 at 16: 00 Magnesium Hydroxide (Milk Of Mag) 30 ml DAILY PRN PO CONSTIPATION; Start at 16:00 Bisacodyl 10 mg 10 mg DAILY PRN [place] CONSTIPATION; Start 10/03/16 at 16:00 Vancomycin HCl (Vancocin) 250 ml @ 125 mls/hr Q24H IVPB Last administered on 18:40; Admin Dose 125 MLS/HR; Start 10/04/16 at 18:00 Labetalol HCl (Labetalol) 10 mg Q4H PRN IV for SBP greater than 160 Last administered on 10/05/16 00:13; Admin Dose 10 MG; Start 10/03/16 at 21:00 Lorazepam (Ativan) 1 mg Q6H PRN PO ANXIETY Last administered on 10/05/16 15:41 ; Admin Dose 1 MG; Start 10/03/16 at 23:30 Hydromorphone HCl (Dilaudid) 0.5 mg Q4H PRN IV PAIN Last administered on 18:46; Admin Dose 0.5 MG; Start 10/04/16 at 13:00 Tramadol HCl (Ultram) 100 mg Q6 PO Last administered on 10/05/16 17:29; Admin Dose 100 MG; Start 10/05/16 at 18:00 Amlodipine Besylate (Norvasc) 5 mg BID PO Last administered on 10/05/16 13:31 ; Admin Dose 5 MG; Start 10/05/16 at 13:30 GUERDA COLON MD Oct 05, 2016 19:16
[2016-10-06] VITALS (12 sets, daily range): BP systolic 134–168; BP diastolic 69–82; PULSE 98–112; RESP 16–19
[2016-10-06] MEDS: traMADol 50 MG TAB PO SCH ×4 (00:34→18:51)
[2016-10-06] MEDS: HYDROmorphONE 1 MG/ML SYG IV PRN ×4 (03:47→20:49)
[2016-10-06] MEDS: PANTOPRAZOLE (EC) 40 MG TAB PO SCH (06:00)
[2016-10-06 06:51] LABS: BASOPHILS % 0.4 % (0.0-2.0); EOSINOPHILS # 0.3 10^3/ul (0.0-0.5); EOSINOPHILS % 4.7 % (0.0-7.0); HEMATOCRIT 38.4 % (37.0-47.0); HEMOGLOBIN 12.6 g/dl (12.0-16.0); LYMPHOCYTES # 1.5 10^3/ul (0.8-2.9); LYMPHOCYTES % 21.9 % (15.0-51.0); MEAN CORPUSCULAR HEMOGLOBIN 30.9 pg (29.0-33.0); MEAN CORPUSCULAR HGB CONC 32.8 g/dl (32.0-37.0); MEAN CORPUSCULAR VOLUME 94.1 fl (82.0-101.0); MEAN PLATELET VOLUME 10.9 fl (7.4-10.4); MONOCYTE # 0.8 10^3/ul (0.3-0.9); MONOCYTES % 11.5 % (0.0-11.0); NEUTROPHILS % 61.4 % (39.0-77.0); PLATELET COUNT 217 10^3/UL (140-415); RED BLOOD COUNT 4.08 10^6/ul (4.20-5.40); WHITE BLOOD COUNT 6.9 10^3/ul (4.8-10.8)
[2016-10-06 07:05] LABS: INR 1.34; PROTIME 16.7 Sec (12.2-14.2); PT RATIO 1.3
[2016-10-06 07:06] LABS: PARTIAL THROMBOPLASTIN TIME 25.2 Sec (25.0-35.0)
[2016-10-06 07:14] LABS: CREATININE 0.59 mg/dl (0.44-1.00); POTASSIUM 3.5 mmol/L (3.5-5.1)
[2016-10-06] MEDS: ENBREL XX SCH ×3 (08:00→16:00)
[2016-10-06] MEDS: FUROSEMIDE 20 MG TAB PO SCH (09:35)
[2016-10-06] MEDS: LOSARTAN 50 MG TAB PO SCH (09:35)
[2016-10-06] MEDS: DILTIAZEM (SR) 60 MG CAP PO SCH ×3 (09:35→20:50)
[2016-10-06] MEDS: FOLIC ACID 1 MG TAB PO SCH (09:35)
[2016-10-06] MEDS: CYANOCOBALAMIN 100 MCG TAB PO SCH (09:36)
[2016-10-06] MEDS: AMLODIPINE 5 MG TAB PO SCH ×2 (09:36→20:49)
[2016-10-06] MEDS: SENNA/DOCUSATE NA (8.6MG/50MG) TAB PO SCH (09:36)
[2016-10-06] MEDS: DOCUSATE SODIUM 250 MG CAP PO PRN (09:36)
--- NOTE | 2016-10-06 11:20 | CONS ---
Date/Time of Note Date/Time of Note DATE: 10/06/16 TIME: 11:19 Assessment/Plan Assessment/Plan Additional Assessment/Plan Patient's daughter is at the bedside and she states her mother's pain is under better control. We will continue with tramadol and as needed doses of low-dose Dilaudid. When she is stable for discharge I suggest only discharging with tramadol not stronger opioids. Consultation Date/Type/Reason Admit Date/Time Oct 03, 2016 at 14:16 Initial Consult Date 10/04/16 Type of Consultation: Pulmonary Exam/Review of Systems Vital Signs Vitals Vital Signs Date Time Temp Pulse Resp B/P Pulse Ox O2 Delivery O2 Flow Rate FiO2 10/06/16 10:57 98.8 83 18 168/69 92 10/05/16 21:19 Nasal Cannula 2.0 Intake and Output 10/05/16 10/05/16 10/06/16 15:00 23:00 07:00 Intake Total 1055 ml 400 ml Balance 1055 ml 400 ml Exam Respiratory: clear to auscultation, normal air movement, No congested cough, No crackles/rales, No diminished breath sounds, No intercostal retraction, No labored breathing, No other, No respirations, No tactile fremitus, No wheezing Cardiovascular: nl pulses, regular rate and rhythm, No S3, No S4, No bruits, No diastolic murmur, No edema, No gallop, No irregular rhythm, No jugular venous distention (JVD), No murmurs/extra sounds, No other, No rub, No systolic murmur Neurological: MOLT[employer] II-XII intact, nl mental status, nl speech, nl strength, No DTR's symmetric, No confused, No focal weakness, No lethargic, No numbness , No other, No reflexes, No unresponsive Results Result Diagram: 10/06/16 0545 10/06/16 0545 Results 24 hrs Laboratory Tests Test 10/06/16 05:45 White Blood Count 6.9 Red Blood Count 4.08 L Hemoglobin 12.6 Hematocrit 38.4 Mean Corpuscular Volume 94.1 Mean Corpuscular Hemoglobin 30.9 Mean Corpuscular Hemoglobin Concent 32.8 Red Cell Distribution Width 15.0 H Platelet Count 217 Mean Platelet Volume 10.9 H Neutrophils % 61.4 Lymphocytes % 21.9 Monocytes % 11.5 H Eosinophils % 4.7 Basophils % 0.4 Nucleated Red Blood Cells % 0.0 Neutrophils # (Manual) 4 Lymphocytes # 1.5 Monocytes # 0.8 Eosinophils # 0.3 Basophils # 0.0 Nucleated Red Blood Cells # 0.0 Prothrombin Time 16.7 #H Prothrombin Time Ratio 1.3 INR International Normalized Ratio 1.34 Activated Partial Thromboplast Time 25.2 Sodium Level 140 Potassium Level 3.5 Chloride Level 102 Carbon Dioxide Level 28 Anion Gap 14 Blood Urea Nitrogen 13 Creatinine 0.59 Glucose Level 120 Calcium Level 9.0 Medications Medications Current Medications Cyanocobalamin (Vitamin B12) 100 mcg DAILY PO Last administered on 10/06/16 09 :36; Admin Dose 100 MCG; Start 10/04/16 at 09:00 Diltiazem HCl (Cardizem Sr) 60 mg TID PO Last administered on 10/06/16 09:35; Admin Dose 60 MG; Start 10/03/16 at 18:00 Docusate Sodium (Colace) 250 mg DAILY PRN PO CONSTIPATION Last administered on 10/06/16 09:36; Admin Dose 250 MG; Start 10/03/16 at 15:00 Folic Acid (Folic Acid) 1 mg DAILY PO Last administered on 10/06/16 09:35; Admin Dose 1 MG; Start 10/04/16 at 09:00 Furosemide (Lasix) 20 mg DAILY PO Last administered on 10/06/16 09:35; Admin Dose 20 MG; Start 10/04/16 at 09:00 Losartan Potassium (Cozaar) 100 mg DAILY PO Last administered on 10/06/16 09: 35; Admin Dose 100 MG; Start 10/04/16 at 09:00 Senna/Docusate Sodium (Senokot-S) 1 tab DAILY PO Last administered on 09:36; Admin Dose 1 TAB; Start 10/04/16 at 09:00 Warfarin Sodium (Coumadin) 4 mg DAILY@17 PO ; Start 10/03/16 at 17:00; Status Future Hold Pantoprazole 40 mg 40 mg DAILY@06 PO Last administered on 10/06/16 06:00; Admin Dose 40 MG; Start 10/04/16 at 06:00 Cefepime HCl (Maxipime 2gm/50 ml (Pmx)) 50 ml @ 100 mls/hr Q24H IVPB Last administered on 10/05/16 13:24; Admin Dose 100 MLS/HR; Start 10/04/16 at 13:00 Miscellaneous Information (*Order Clarification Bulletin) MEDICATION REQUIRES CLARIFICATI... Q8H XX ; Start 10/03/16 at 16:00 Docusate Sodium (Colace) 100 mg Q12H PRN PO CONSTIPATION; Start 10/03/16 at 16: 00 Magnesium Hydroxide (Milk Of Mag) 30 ml DAILY PRN PO CONSTIPATION; Start at 16:00 Bisacodyl 10 mg 10 mg DAILY PRN [place] CONSTIPATION; Start 10/03/16 at 16:00 Vancomycin HCl (Vancocin) 250 ml @ 125 mls/hr Q24H IVPB Last administered on 18:40; Admin Dose 125 MLS/HR; Start 10/04/16 at 18:00 Labetalol HCl (Labetalol) 10 mg Q4H PRN IV for SBP greater than 160 Last administered on 10/05/16 00:13; Admin Dose 10 MG; Start 10/03/16 at 21:00 Lorazepam (Ativan) 1 mg Q6H PRN PO ANXIETY Last administered on 10/05/16 15:41 ; Admin Dose 1 MG; Start 10/03/16 at 23:30 Hydromorphone HCl (Dilaudid) 0.5 mg Q4H PRN IV PAIN Last administered on 09:37; Admin Dose 0.5 MG; Start 10/04/16 at 13:00 Tramadol HCl (Ultram) 100 mg Q6 PO Last administered on 10/06/16 06:00; Admin Dose 100 MG; Start 10/05/16 at 18:00 Amlodipine Besylate (Norvasc) 5 mg BID PO Last administered on 10/06/16 09:36 ; Admin Dose 5 MG; Start 10/05/16 at 13:30 PRANAV REHMAN Oct 06, 2016 11:20
--- NOTE | 2016-10-06 12:05 | CONS ---
Date/Time of Note Date/Time of Note DATE: 10/06/16 TIME: 12:04 Consult Date/Type/Reason Admit Date/Time Oct 03, 2016 at 14:16 Initial Consult Date 10/04/16 Type of Consultation: Pulmonary Subjective Appears comfortable. Continue pain management Objective Vital Signs Date Time Temp Pulse Resp B/P Pulse Ox O2 Delivery O2 Flow Rate FiO2 10/06/16 10:57 98.8 83 18 168/69 92 10/05/16 21:19 Nasal Cannula 2.0 Intake and Output 10/05/16 10/05/16 10/06/16 14:59 22:59 06:59 Intake Total 1055 ml 400 ml Balance 1055 ml 400 ml Exam GENERAL: Elderly [place] lady comfortable at rest VITAL SIGNS: per chart NECK: Supple. No JVD or lymphadenopathy. CARDIAC EXAM: S1, S2. No added sounds or murmurs. CHEST: Diminished air entry bilaterally ABDOMEN: Soft, nontender. No guarding or rebound. EXTREMITIES: No cyanosis, clubbing, edema +2 NEUROLOGIC: Generalized weakness. No focal deficits. Results/Medications Result Diagram: 10/06/16 0545 10/06/16 0545 Results 24 hrs Laboratory Tests Test 10/06/16 05:45 White Blood Count 6.9 Red Blood Count 4.08 L Hemoglobin 12.6 Hematocrit 38.4 Mean Corpuscular Volume 94.1 Mean Corpuscular Hemoglobin 30.9 Mean Corpuscular Hemoglobin Concent 32.8 Red Cell Distribution Width 15.0 H Platelet Count 217 Mean Platelet Volume 10.9 H Neutrophils % 61.4 Lymphocytes % 21.9 Monocytes % 11.5 H Eosinophils % 4.7 Basophils % 0.4 Nucleated Red Blood Cells % 0.0 Neutrophils # (Manual) 4 Lymphocytes # 1.5 Monocytes # 0.8 Eosinophils # 0.3 Basophils # 0.0 Nucleated Red Blood Cells # 0.0 Prothrombin Time 16.7 #H Prothrombin Time Ratio 1.3 INR International Normalized Ratio 1.34 Activated Partial Thromboplast Time 25.2 Sodium Level 140 Potassium Level 3.5 Chloride Level 102 Carbon Dioxide Level 28 Anion Gap 14 Blood Urea Nitrogen 13 Creatinine 0.59 Glucose Level 120 Calcium Level 9.0 Medications Current Medications Cyanocobalamin (Vitamin B12) 100 mcg DAILY PO Last administered on 10/06/16t 09 :36; Admin Dose 100 MCG; Start 10/04/16 at 09:00 Diltiazem HCl (Cardizem Sr) 60 mg TID PO Last administered on 10/06/16 09:35; Admin Dose 60 MG; Start 10/03/16 at 18:00 Docusate Sodium (Colace) 250 mg DAILY PRN PO CONSTIPATION Last administered on 10/06/16 09:36; Admin Dose 250 MG; Start 10/03/16 at 15:00 Folic Acid (Folic Acid) 1 mg DAILY PO Last administered on 10/06/16 09:35; Admin Dose 1 MG; Start 10/04/16 at 09:00 Furosemide (Lasix) 20 mg DAILY PO Last administered on 10/06/16 09:35; Admin Dose 20 MG; Start 10/04/16 at 09:00 Losartan Potassium (Cozaar) 100 mg DAILY PO Last administered on 10/06/16 09: 35; Admin Dose 100 MG; Start 10/04/16 at 09:00 Senna/Docusate Sodium (Senokot-S) 1 tab DAILY PO Last administered on 09:36; Admin Dose 1 TAB; Start 10/04/16 at 09:00 Warfarin Sodium (Coumadin) 4 mg DAILY@17 PO ; Start 10/03/16 at 17:00; Status Future Hold Pantoprazole 40 mg 40 mg DAILY@06 PO Last administered on 10/06/16 06:00; Admin Dose 40 MG; Start 10/04/16 at 06:00 Cefepime HCl (Maxipime 2gm/50 ml (Pmx)) 50 ml @ 100 mls/hr Q24H IVPB Last administered on 10/05/16 13:24; Admin Dose 100 MLS/HR; Start 10/04/16 at 13:00 Miscellaneous Information (*Order Clarification Bulletin) MEDICATION REQUIRES CLARIFICATI... Q8H XX ; Start 10/03/16 at 16:00 Docusate Sodium (Colace) 100 mg Q12H PRN PO CONSTIPATION; Start 10/03/16 at 16: 00 Magnesium Hydroxide (Milk Of Mag) 30 ml DAILY PRN PO CONSTIPATION; Start at 16:00 Bisacodyl 10 mg 10 mg DAILY PRN [place] CONSTIPATION; Start 10/03/16 at 16:00 Vancomycin HCl (Vancocin) 250 ml @ 125 mls/hr Q24H IVPB Last administered on 18:40; Admin Dose 125 MLS/HR; Start 10/04/16 at 18:00 Labetalol HCl (Labetalol) 10 mg Q4H PRN IV for SBP greater than 160 Last administered on 10/05/16 00:13; Admin Dose 10 MG; Start 10/03/16 at 21:00 Lorazepam (Ativan) 1 mg Q6H PRN PO ANXIETY Last administered on 10/05/16 15:41 ; Admin Dose 1 MG; Start 10/03/16 at 23:30 Hydromorphone HCl (Dilaudid) 0.5 mg Q4H PRN IV PAIN Last administered on 09:37; Admin Dose 0.5 MG; Start 10/04/16 at 13:00 Tramadol HCl (Ultram) 100 mg Q6 PO Last administered on 10/06/16 06:00; Admin Dose 100 MG; Start 10/05/16 at 18:00 Amlodipine Besylate (Norvasc) 5 mg BID PO Last administered on 10/06/16 09:36 ; Admin Dose 5 MG; Start 10/05/16 at 13:30 Miscellaneous Information (*Rx Drug Level Order Reminder*) 1 ONCE ONCE XX ; Start 10/06/16 at 17:00; Stop 10/06/16 at 17:01 Assessment/Plan Chief Complaint/Hosp Course IMPRESSION: 1. Significant radiographic changes concerning for pneumonia. However, no significant leukocytosis or fever. The concern is for underlying malignancy. 2. Vaginal bleeding concerning for possible endometrial malignancy. 3. History of rheumatoid arthritis with chronic pain. RECOMMENDATIONS: 1. Gynecology recommendations 2. CT chest noted, no masses. 3. Continue broad-spectrum antibiotic coverage. 4. Deep vein thrombosis and gastrointestinal prophylaxis. 5. Discussed with daughter at bedside. Overall prognosis is guarded which the patient's daughter understands. She agrees that patient would benefit from care at prison facility and already has identified a place. 6. Pain management Consider discharge planning to prison facility of daughter's choice. Problems: SERGIO BERGER MD, [facility] Oct 06, 2016 12:05
--- NOTE | 2016-10-06 12:05 | PN ---
Date/Time of Note Date/Time of Note DATE: 10/06/16 TIME: 12:02 Assessment/Plan VTE Prophylaxis VTE Prophylaxis Intervention: SCD's Lines/Catheters IV [facility]from [facility] Urinary Cath still in place: No Assessment/Plan Chief Complaint/Hosp Course 1. Postmenopausal vaginal bleeding. Pelvic ultrasound showing small uterus with ovaries not visualized. CT scan of the abdomen and pelvis showing endometrial thickening measuring up to 10 mm. Await GROCERY WORKER evaluation. Of note, the patient had elevated INR upon admission that might have caused the bleeding. 2. Hematuria. Status post evaluation by urology. Hematuria most probably secondary to underlying urinary tract infection. 3. History of cardiac arrhythmias. Was on anticoagulation at home. Currently not in any arrhythmia. Continue telemetry monitoring. 4. Chronic pain. Being followed by pain management team. 5. Possible underlying community-acquired pneumonia. CT scan is negative for any acute infiltrates. Probably has underlying acute bronchitis. Continue antimicrobials. 6. Urinary tract infection. Although the urine culture has been negative, the patient's urinalysis was significant with urine microscopic WBC greater than 182. Continue antimicrobials. 7. Essential hypertension. Continue antihypertensives. 8. 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 She was on therapeutic anticoagulation for DVT and for cardiac arrhythmias. Will obtain a bilateral lower extremity venous Doppler study. 9. Fluids, electrolytes, and nutrition. Carbohydrate controlled diet. 10. DVT prophylaxis. Resume warfarin after evaluation by GROCERY WORKER. 11. Plan. Continue antimicrobials. Await GROCERY WORKER evaluation. call worker person laborist has been called. Case discussed with . Plan of care was explained to the patient's daughter who was at the bedside. Problems: Subjective 24 Hr Interval Summary Free Text/Dictation Pain well controlled. No episodes of vaginal bleeding today Exam/Review of Systems Vital Signs Vitals Vital Signs Date Time Temp Pulse Resp B/P Pulse Ox O2 Delivery O2 Flow Rate FiO2 10/06/16 10:57 98.8 83 18 168/69 92 10/05/16 21:19 Nasal Cannula 2.0 Intake and Output 10/05/16 10/05/16 10/06/16 15:00 23:00 07:00 Intake Total 1055 ml 400 ml Balance 1055 ml 400 ml Exam General: Adequately build 81 year-old female lying in bed in no apparent distress. HEENT: Normocephalic, atraumatic. Eyes: Anicteric sclerae, conjunctivae clear. ENT: Nasal septum midline, oral mucosa moist. Neck supple, no JVD noticed. Respiratory: Bilaterally clear breath sounds. No use of accessory muscles of respiration. No adventitious breath sounds. Cardiovascular: S1, S2 heard. Regular rate and rhythm. Abdomen: Soft, nontender, and nondistended. Bowel sounds hypoactive in all 4 quadrants. Genitourinary: Deferred. Extremities: No cyanosis, no clubbing, no edema. Peripheral pulses palpable. Neurologic: The patient is awake and alert. Follows commands. Results Result Diagram: 10/06/16 0545 10/06/16 0545 Results 24 hrs Laboratory Tests Test 10/06/16 05:45 White Blood Count 6.9 Red Blood Count 4.08 L Hemoglobin 12.6 Hematocrit 38.4 Mean Corpuscular Volume 94.1 Mean Corpuscular Hemoglobin 30.9 Mean Corpuscular Hemoglobin Concent 32.8 Red Cell Distribution Width 15.0 H Platelet Count 217 Mean Platelet Volume 10.9 H Neutrophils % 61.4 Lymphocytes % 21.9 Monocytes % 11.5 H Eosinophils % 4.7 Basophils % 0.4 Nucleated Red Blood Cells % 0.0 Neutrophils # (Manual) 4 Lymphocytes # 1.5 Monocytes # 0.8 Eosinophils # 0.3 Basophils # 0.0 Nucleated Red Blood Cells # 0.0 Prothrombin Time 16.7 #H Prothrombin Time Ratio 1.3 INR International Normalized Ratio 1.34 Activated Partial Thromboplast Time 25.2 Sodium Level 140 Potassium Level 3.5 Chloride Level 102 Carbon Dioxide Level 28 Anion Gap 14 Blood Urea Nitrogen 13 Creatinine 0.59 Glucose Level 120 Calcium Level 9.0 Medications Medications Current Medications Cyanocobalamin (Vitamin B12) 100 mcg DAILY PO Last administered on 10/06/16 09 :36; Admin Dose 100 MCG; Start 10/04/16 at 09:00 Diltiazem HCl (Cardizem Sr) 60 mg TID PO Last administered on 10/06/16 09:35; Admin Dose 60 MG; Start 10/03/16 at 18:00 Docusate Sodium (Colace) 250 mg DAILY PRN PO CONSTIPATION Last administered on 10/06/16 09:36; Admin Dose 250 MG; Start 10/03/16 at 15:00 Folic Acid (Folic Acid) 1 mg DAILY PO Last administered on 10/06/16 09:35; Admin Dose 1 MG; Start 10/04/16 at 09:00 Furosemide (Lasix) 20 mg DAILY PO Last administered on 10/06/16 09:35; Admin Dose 20 MG; Start 10/04/16 at 09:00 Losartan Potassium (Cozaar) 100 mg DAILY PO Last administered on 10/06/16 09: 35; Admin Dose 100 MG; Start 10/04/16 at 09:00 Senna/Docusate Sodium (Senokot-S) 1 tab DAILY PO Last administered on 09:36; Admin Dose 1 TAB; Start 10/04/16 at 09:00 Warfarin Sodium (Coumadin) 4 mg DAILY@17 PO ; Start 10/03/16 at 17:00; Status Future Hold Pantoprazole 40 mg 40 mg DAILY@06 PO Last administered on 10/06/16 06:00; Admin Dose 40 MG; Start 10/04/16 at 06:00 Cefepime HCl (Maxipime 2gm/50 ml (Pmx)) 50 ml @ 100 mls/hr Q24H IVPB Last administered on 10/05/16 13:24; Admin Dose 100 MLS/HR; Start 10/04/16 at 13:00 Miscellaneous Information (*Order Clarification Bulletin) MEDICATION REQUIRES CLARIFICATI... Q8H XX ; Start 10/03/16 at 16:00 Docusate Sodium (Colace) 100 mg Q12H PRN PO CONSTIPATION; Start 10/03/16 at 16: 00 Magnesium Hydroxide (Milk Of Mag) 30 ml DAILY PRN PO CONSTIPATION; Start at 16:00 Bisacodyl 10 mg 10 mg DAILY PRN [place] CONSTIPATION; Start 10/03/16 at 16:00 Vancomycin HCl (Vancocin) 250 ml @ 125 mls/hr Q24H IVPB Last administered on 18:40; Admin Dose 125 MLS/HR; Start 10/04/16 at 18:00 Labetalol HCl (Labetalol) 10 mg Q4H PRN IV for SBP greater than 160 Last administered on 10/05/16 00:13; Admin Dose 10 MG; Start 10/03/16 at 21:00 Lorazepam (Ativan) 1 mg Q6H PRN PO ANXIETY Last administered on 10/05/16 15:41 ; Admin Dose 1 MG; Start 10/03/16 at 23:30 Hydromorphone HCl (Dilaudid) 0.5 mg Q4H PRN IV PAIN Last administered on 09:37; Admin Dose 0.5 MG; Start 10/04/16 at 13:00 Tramadol HCl (Ultram) 100 mg Q6 PO Last administered on 10/06/16 06:00; Admin Dose 100 MG; Start 10/05/16 at 18:00 Amlodipine Besylate (Norvasc) 5 mg BID PO Last administered on 10/06/16 09:36 ; Admin Dose 5 MG; Start 10/05/16 at 13:30 Miscellaneous Information (*Rx Drug Level Order Reminder*) 1 ONCE ONCE XX ; Start 10/06/16 at 17:00; Stop 10/06/16 at 17:01 FARZANEH CHAN NP Oct 06, 2016 12:04
[2016-10-06] MEDS: CEFEPIME 2GM/50 ML (PMX) 50 ML IVPB SCH (13:18)
--- NOTE | 2016-10-06 15:15 | RADRPT ---
PROCEDURE: Ultrasound of the bilateral lower extremity venous system. CLINICAL INDICATION: Lower extremity pain. Evaluate for deep venous thrombosis. TECHNIQUE: Portillo scale with and without compression, color doppler, spectral doppler of the venous system of the bilateral lower extremities was performed. Venous augmentation maneuvers were utilized . COMPARISON: No prior studies are available for comparison. FINDINGS: RIGHT: Common femoral vein:Patent and compressible. Femoral vein:Patent and compressible. Popliteal vein:Patent and compressible. Visualized calf veins:Patent and compressible. Soft tissues:Normal LEFT: Common femoral vein:Patent and compressible. Femoral vein:Patent and compressible. Popliteal vein:Echogenic noncompressible thrombus. Visualized calf veins:Patent and compressible. Soft tissues:5.1 x 1.7 x 3.5 cm popliteal cyst. IMPRESSION: 1. Deep venous thrombosis in the left lower extremity involving the popliteal vein. 2. Right lower extremity is negative for evidence of deep venous thrombosis. 3. 5.1 x 1.7 x 3.5 cm left popliteal cyst. Note: A message was left for CATHERINE. Antolin Solis on 10/06/2016 3:12:06 PM. RPTAT: [facility] Physician Miracle Date Time Electronically viewed and signed by Physician Miracle on 10/06/2016 15:15 /
[2016-10-06] MEDS: VANCOMYCIN 1 GM in NS 250 ML IVPB SCH (18:52)
--- NOTE | 2016-10-06 19:26 | PN ---
Date/Time of Note Date/Time of Note DATE: 10/06/16 TIME: 19:20 Assessment/Plan VTE Prophylaxis VTE Prophylaxis Intervention: contraindicated (Hematuria) Lines/Catheters IV [facility]from [facility] Saline Lock Urinary Cath still in place: No Assessment/Plan Chief Complaint/Hosp Course 81-year-old female was brought in with the possible diagnosis of vaginal bleed however on the examination there is no vaginal bleeding but she does have hematuria. urine culture is negative. the appearance on the ct scan is suggestive of urinary tract infection and cystitis The hematuria most likely related to urinary tract infection and elevated INR. Recheck PT and INR are normal A RESIDENT INTERN consultation have has been requested Problems: Assessment/Plan Since the urine culture has been negative I did order to do urine cytology daily for 4 days to make sure that there is no malignant cells in her urine Subjective 24 Hr Interval Summary Constitutional: no complaints Eyes: no complaints ENT: no complaints Respiratory: no complaints Cardiovascular: No chest pain Gastrointestinal: no complaints Genitourinary: No bleeding, No hematuria Musculoskeletal: no complaints Skin: no complaints Neurologic: no complaints Endocrine: no complaints Lymphatic: no complaints Psychological: no complaints Exam/Review of Systems Vital Signs Vitals Vital Signs Date Time Temp Pulse Resp B/P Pulse Ox O2 Delivery O2 Flow Rate FiO2 10/06/16 16:21 107 10/06/16 16:08 98.0 18 143/82 97 10/06/16 08:10 Nasal Cannula 2.0 Intake and Output 10/05/16 10/05/16 10/06/16 15:00 23:00 07:00 Intake Total 1055 ml 400 ml Balance 1055 ml 400 ml Exam Constitutional: alert, other (Daughter at bedside) Psych: no complaints Head: normocephalic Eyes: nl conjunctiva ENMT: nl external ears & nose Neck: supple Respiratory: normal air movement Cardiovascular: No edema Gastrointestinal: soft, No tender Genitourinary - Female: other (Urine is clear, no more gross hematuria) Musculoskeletal: nl extremities to inspection Extremities: No calf tenderness Skin: nl turgor Results Result Diagram: 10/06/16 0545 10/06/16 0545 Results 24 hrs Laboratory Tests Test 10/06/16 05:45 10/06/16 17:02 White Blood Count 6.9 Red Blood Count 4.08 L Hemoglobin 12.6 Hematocrit 38.4 Mean Corpuscular Volume 94.1 Mean Corpuscular Hemoglobin 30.9 Mean Corpuscular Hemoglobin Concent 32.8 Red Cell Distribution Width 15.0 H Platelet Count 217 Mean Platelet Volume 10.9 H Neutrophils % 61.4 Lymphocytes % 21.9 Monocytes % 11.5 H Eosinophils % 4.7 Basophils % 0.4 Nucleated Red Blood Cells % 0.0 Neutrophils # (Manual) 4 Lymphocytes # 1.5 Monocytes # 0.8 Eosinophils # 0.3 Basophils # 0.0 Nucleated Red Blood Cells # 0.0 Prothrombin Time 16.7 #H Prothrombin Time Ratio 1.3 INR International Normalized Ratio 1.34 Activated Partial Thromboplast Time 25.2 Sodium Level 140 Potassium Level 3.5 Chloride Level 102 Carbon Dioxide Level 28 Anion Gap 14 Blood Urea Nitrogen 13 Creatinine 0.59 Glucose Level 120 Calcium Level 9.0 Vancomycin Level Trough 6.2 L Medications Medications Current Medications Cyanocobalamin (Vitamin B12) 100 mcg DAILY PO Last administered on 10/06/16 09 :36; Admin Dose 100 MCG; Start 10/04/16 at 09:00 Diltiazem HCl (Cardizem Sr) 60 mg TID PO Last administered on 10/06/16 13:18; Admin Dose 60 MG; Start 10/03/16 at 18:00 Docusate Sodium (Colace) 250 mg DAILY PRN PO CONSTIPATION Last administered on 10/06/16 09:36; Admin Dose 250 MG; Start 10/03/16 at 15:00 Folic Acid (Folic Acid) 1 mg DAILY PO Last administered on 10/06/16 09:35; Admin Dose 1 MG; Start 10/04/16 at 09:00 Furosemide (Lasix) 20 mg DAILY PO Last administered on 10/06/16 09:35; Admin Dose 20 MG; Start 10/04/16 at 09:00 Losartan Potassium (Cozaar) 100 mg DAILY PO Last administered on 10/06/16 09: 35; Admin Dose 100 MG; Start 10/04/16 at 09:00 Senna/Docusate Sodium (Senokot-S) 1 tab DAILY PO Last administered on 09:36; Admin Dose 1 TAB; Start 10/04/16 at 09:00 Warfarin Sodium (Coumadin) 4 mg DAILY@17 PO ; Start 10/03/16 at 17:00; Status Future Hold Pantoprazole 40 mg 40 mg DAILY@06 PO Last administered on 10/06/16 06:00; Admin Dose 40 MG; Start 10/04/16 at 06:00 Cefepime HCl (Maxipime 2gm/50 ml (Pmx)) 50 ml @ 100 mls/hr Q24H IVPB Last administered on 10/06/16 13:18; Admin Dose 100 MLS/HR; Start 10/04/16 at 13:00 Miscellaneous Information (*Order Clarification Bulletin) MEDICATION REQUIRES CLARIFICATI... Q8H XX ; Start 10/03/16 at 16:00 Docusate Sodium (Colace) 100 mg Q12H PRN PO CONSTIPATION; Start 10/03/16 at 16: 00 Magnesium Hydroxide (Milk Of Mag) 30 ml DAILY PRN PO CONSTIPATION; Start at 16:00 Bisacodyl (Dulcolax Supp) 10 mg DAILY PRN [place] CONSTIPATION; Start 10/03/16 at 16 :00 Labetalol HCl (Labetalol) 10 mg Q4H PRN IV for SBP greater than 160 Last administered on 10/05/16 00:13; Admin Dose 10 MG; Start 10/03/16 at 21:00 Lorazepam (Ativan) 1 mg Q6H PRN PO ANXIETY Last administered on 10/05/16 15:41 ; Admin Dose 1 MG; Start 10/03/16 at 23:30 Hydromorphone HCl (Dilaudid) 0.5 mg Q4H PRN IV PAIN Last administered on 16:05; Admin Dose 0.5 MG; Start 10/04/16 at 13:00 Tramadol HCl (Ultram) 100 mg Q6 PO Last administered on 10/06/16 18:51; Admin Dose 100 MG; Start 10/05/16 at 18:00 Amlodipine Besylate 5 mg 5 mg BID PO Last administered on 10/06/16 09:36; Admin Dose 5 MG; Start 10/05/16 at 13:30 Vancomycin HCl/ Sodium Chloride (Vancocin/NS) 150 ml @ 75 mls/hr Q12H IVPB ; Start 10/07/16 at 06:00 GUERDA COLON MD Oct 06, 2016 19:26
--- NOTE | 2016-10-06 23:54 | CONS ---
DATE OF ADMISSION: 10/03/2016 DATE OF CONSULTATION: 10/06/2016 REASON FOR CONSULTATION: Thank you for consulting with us. This is an 81 year old, admitted to the emergency room with pelvic pain, abdominal pain, urinary issues. Also the patient had a few days of spotting. PAST MEDICAL HISTORY: The patient has a history of DVT in bilateral lower extremities. The patient has hypertension, sciatica, osteoporosis, current colon prolapse, uterine prolapse, status post surgery and dementia, rheumatoid arthritis. PHYSICAL EXAMINATION: ABDOMEN: Soft. GENITOURINARY: Vaginal canal was stenotic. Complete examination was not possible due to the patient's discomfort. Ultrasound showed endometrial thickness of 10 mm. IMPRESSION AND PLAN: The patient's situation discussed extensively with the family member and the patient. Due to 10 mm endometrial thickness, the patient needs to have a dilatation and curettage and hysteroscopy or endometrial biopsy. This does not need to be done as an emergency situation and can be done as an ambulatory case. The patient needs to go to her data center manager to get scheduled for a dilatation and curettage and hysteroscopy or endometrial biopsy. The patient was extensively advised that the endometrial thickness of 10 mm in this postmenopausal on image could be abnormal and the patient needs to have a dilatation and curettage and hysteroscopy or endometrial biopsy by her primary data center manager as there is a chance of the endometrial cancer or endometrial hyperplasia. As no blood and vaginal bleeding was noticed on the exam, no acute interventions are needed at this time but the patient needs to followup with her data center manager as we have extensively discussed with her and her family members, her daughter. The patient's questions and family member's questions were extensively discussed. The patient and the patient's family member is not certain if they want to have a dilatation and curettage and hysteroscopy done but they will follow up with their data center manager. The patient questions were extensively answered. Thank you for consulting with us. If you have any further questions please do not hesitate to contact the head of digital advertising & integration laborist at [phone]. Dictated By: Jens Borrego MD /aden/trina /Document#: [id number]
[2016-10-07] VITALS (12 sets, daily range): BP systolic 132–163; BP diastolic 68–86; PULSE 86–115; RESP 16–20
[2016-10-07] MEDS: ENBREL XX SCH
[2016-10-07] MEDS: traMADol 50 MG TAB PO SCH ×4 (00:02→17:27)
[2016-10-07] MEDS: HYDROmorphONE 1 MG/ML SYG IV PRN ×4 (01:02→19:53)
[2016-10-07] MEDS: VANCOMYCIN 750 MG in SOD CHLORIDE 0.9% 150 ML IVPB SCH ×2 (05:21→17:26)
[2016-10-07] MEDS: PANTOPRAZOLE (EC) 40 MG TAB PO SCH (05:21)
[2016-10-07 06:40] LABS: BASOPHILS % 0.6 % (0.0-2.0); EOSINOPHILS # 0.4 10^3/ul (0.0-0.5); EOSINOPHILS % 5.5 % (0.0-7.0); HEMOGLOBIN 12.9 g/dl (12.0-16.0); LYMPHOCYTES # 1.3 10^3/ul (0.8-2.9); LYMPHOCYTES % 18.8 % (15.0-51.0); MEAN CORPUSCULAR HEMOGLOBIN 30.1 pg (29.0-33.0); MEAN CORPUSCULAR HGB CONC 32.3 g/dl (32.0-37.0); MEAN CORPUSCULAR VOLUME 93.5 fl (82.0-101.0); MONOCYTE # 0.8 10^3/ul (0.3-0.9); MONOCYTES % 11.9 % (0.0-11.0); NEUTROPHILS % 62.9 % (39.0-77.0); PLATELET COUNT 212 10^3/UL (140-415); RED BLOOD COUNT 4.28 10^6/ul (4.20-5.40); RED CELL DISTRIBUTION WIDTH 14.6 % (11.5-14.5)
[2016-10-07 06:54] LABS: INR 1.16; PROTIME 14.9 Sec (12.2-14.2); PT RATIO 1.2
[2016-10-07 07:09] LABS: PHOSPHORUS 3.8 mg/dl (2.5-4.9)
[2016-10-07 07:10] LABS: CALCIUM 9.1 mg/dl (8.4-10.2); CREATININE 0.52 mg/dl (0.44-1.00); POTASSIUM 3.6 mmol/L (3.5-5.1)
[2016-10-07] MEDS: SENNA/DOCUSATE NA (8.6MG/50MG) TAB PO SCH (09:02)
[2016-10-07] MEDS: AMLODIPINE 5 MG TAB PO SCH ×2 (09:03→20:05)
[2016-10-07] MEDS: FUROSEMIDE 20 MG TAB PO SCH (09:03)
[2016-10-07] MEDS: CYANOCOBALAMIN 100 MCG TAB PO SCH (09:03)
[2016-10-07] MEDS: FOLIC ACID 1 MG TAB PO SCH (09:04)
[2016-10-07] MEDS: LOSARTAN 50 MG TAB PO SCH (09:04)
[2016-10-07] MEDS: DILTIAZEM (SR) 60 MG CAP PO SCH ×3 (09:04→19:54)
--- NOTE | 2016-10-07 12:51 | CONS ---
Date/Time of Note Date/Time of Note DATE: 10/07/16 TIME: 12:49 Assessment/Plan Assessment/Plan Additional Assessment/Plan Assessment and recommendations; 1. Patient admitted with significant and pneumonia involving the right lung, currently on appropriate antibiotic regimen. 2. Rheumatoid arthritis. Continue current treatment. Obtain follow-up chest x-ray in 48 hours. Consultation Date/Type/Reason Admit Date/Time Oct 03, 2016 at 14:16 Initial Consult Date 10/04/16 Type of Consultation: Pulmonary 24 HR Interval Summary Free Text/Dictation Patient condition is stable. Patient did have an episode of wheezing earlier this morning and according to the patient's daughter the patient coughed up some mucus with improvement in wheezing. Patient denies any shortness of breath , abdominal pain, nausea vomiting. General exam; elderly woman, awake and alert. Currently in no distress. Exam/Review of Systems Vital Signs Vitals Vital Signs Date Time Temp Pulse Resp B/P Pulse Ox O2 Delivery O2 Flow Rate FiO2 10/07/16 12:35 86 10/07/16 11:37 97.8 20 142/83 97 10/07/16 08:20 Nasal Cannula 2.0 Intake and Output 10/06/16 10/06/16 10/07/16 15:00 23:00 07:00 Intake Total 500 ml 475 ml Output Total 200 ml Balance 500 ml 275 ml Exam HEENT exam; supple neck, no JVD. No lymphadenopathy. Midline trachea. No thyromegaly. Patient has bilateral intraocular lens implants. She is edentulous and wears dentures. Chest exam; diminished but clear breath sound. S1-S2 audible, no murmurs. Regular rhythm. Abdomen exam; soft, nondistended. No organomegaly. Bowel sounds audible. Extremity exam; no peripheral edema. 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 Results Result Diagram: 10/07/16 0600 10/07/16 0600 Results 24 hrs Laboratory Tests Test 10/06/16 17:02 10/07/16 06:00 Vancomycin Level Trough 6.2 L White Blood Count 7.0 Red Blood Count 4.28 Hemoglobin 12.9 Hematocrit 40.0 Mean Corpuscular Volume 93.5 Mean Corpuscular Hemoglobin 30.1 Mean Corpuscular Hemoglobin Concent 32.3 Red Cell Distribution Width 14.6 H Platelet Count 212 Mean Platelet Volume 11.0 H Neutrophils % 62.9 Lymphocytes % 18.8 Monocytes % 11.9 H Eosinophils % 5.5 Basophils % 0.6 Nucleated Red Blood Cells % 0.0 Neutrophils # (Manual) 4 Lymphocytes # 1.3 Monocytes # 0.8 Eosinophils # 0.4 Basophils # 0.0 Nucleated Red Blood Cells # 0.0 Prothrombin Time 14.9 H Prothrombin Time Ratio 1.2 INR International Normalized Ratio 1.16 Sodium Level 138 Potassium Level 3.6 Chloride Level 100 Carbon Dioxide Level 30 Anion Gap 12 Blood Urea Nitrogen 15 Creatinine 0.52 Glucose Level 107 Calcium Level 9.1 Phosphorus Level 3.8 Magnesium Level 2.0 Medications Medications Current Medications Cyanocobalamin (Vitamin B12) 100 mcg DAILY PO Last administered on 10/07/16 09 :03; Admin Dose 100 MCG; Start 10/04/16 at 09:00 Diltiazem HCl (Cardizem Sr) 60 mg TID PO Last administered on 10/07/16 09:04; Admin Dose 60 MG; Start 10/03/16 at 18:00 Docusate Sodium (Colace) 250 mg DAILY PRN PO CONSTIPATION Last administered on 10/06/16 09:36; Admin Dose 250 MG; Start 10/03/16 at 15:00 Folic Acid (Folic Acid) 1 mg DAILY PO Last administered on 10/07/16 09:04; Admin Dose 1 MG; Start 10/04/16 at 09:00 Furosemide (Lasix) 20 mg DAILY PO Last administered on 10/07/16 09:03; Admin Dose 20 MG; Start 10/04/16 at 09:00 Losartan Potassium (Cozaar) 100 mg DAILY PO Last administered on 10/07/16 09: 04; Admin Dose 100 MG; Start 10/04/16 at 09:00 Senna/Docusate Sodium (Senokot-S) 1 tab DAILY PO Last administered on 09:02; Admin Dose 1 TAB; Start 10/04/16 at 09:00 Pantoprazole 40 mg 40 mg DAILY@06 PO Last administered on 10/07/16 05:21; Admin Dose 40 MG; Start 10/04/16 at 06:00 Cefepime HCl (Maxipime 2gm/50 ml (Pmx)) 50 ml @ 100 mls/hr Q24H IVPB Last administered on 10/06/16 13:18; Admin Dose 100 MLS/HR; Start 10/04/16 at 13:00 Docusate Sodium (Colace) 100 mg Q12H PRN PO CONSTIPATION; Start 10/03/16 at 16: 00 Magnesium Hydroxide (Milk Of Mag) 30 ml DAILY PRN PO CONSTIPATION Last administered on 10/07/16 01:03; Admin Dose 30 ML; Start 10/03/16 at 16:00 Bisacodyl (Dulcolax Supp) 10 mg DAILY PRN [place] CONSTIPATION; Start 10/03/16 at 16 :00 Labetalol HCl (Labetalol) 10 mg Q4H PRN IV for SBP greater than 160 Last administered on 10/05/16 00:13; Admin Dose 10 MG; Start 10/03/16 at 21:00 Lorazepam (Ativan) 1 mg Q6H PRN PO ANXIETY Last administered on 10/05/16 15:41 ; Admin Dose 1 MG; Start 10/03/16 at 23:30 Hydromorphone HCl (Dilaudid) 0.5 mg Q4H PRN IV PAIN Last administered on 08:58; Admin Dose 0.5 MG; Start 10/04/16 at 13:00 Tramadol HCl (Ultram) 100 mg Q6 PO Last administered on 10/07/16 12:19; Admin Dose 100 MG; Start 10/05/16 at 18:00 Amlodipine Besylate 5 mg 5 mg BID PO Last administered on 10/07/16 09:03; Admin Dose 5 MG; Start 10/05/16 at 13:30 Vancomycin HCl/ Sodium Chloride (Vancocin/NS) 150 ml @ 75 mls/hr Q12H IVPB Last administered on 10/07/16 05:21; Admin Dose 75 MLS/HR; Start 10/07/16 at 06 :00 Miscellaneous Information (*Rx Drug Level Order Reminder*) VANCOMYCIN TROUGH AT 1700 ONCE ONCE XX ; Start 10/08/16 at 17:00; Stop 10/08/16 at 17:01 Warfarin Sodium (Coumadin) 4 mg DAILY@17 PO ; Start 10/07/16 at 17:00 VINCE LONG Oct 07, 2016 12:51
--- NOTE | 2016-10-07 12:57 | PN ---
Date/Time of Note Date/Time of Note DATE: 10/07/16 TIME: 12:54 Assessment/Plan VTE Prophylaxis VTE Prophylaxis Intervention: SCD's Lines/Catheters [facility] Urinary Cath still in place: No Assessment/Plan Chief Complaint/Hosp Course Impression and plan 1. Postmenopausal vaginal bleeding vs. suspect hematuria. Patient did have CT scan of her abdomen and pelvis that did show endometrial thickness measuring 10 mm were normal limits in a postmenopausal patient with report considering further evaluation to exclude endometrial neoplasm. . Patient also noted with UTI. Will monitor for now. Monitor H&H. Urologist did see the patient. Plan for follow-up on cytology of the urine to check for malignant cells. Patient was seen by career development facilitator as well who recommended no inpatient intervention but for outpatient care and treatment 2. Pneumonia. Continue antibiotics for now.. Appears to be improving 3. Urinary tract infection with cystitis. Continue with antibiotic 4. Essential hypertension. Continue antihypertensives and adjust needed 5. Sciatica with back pain. Continue with analgesics 6. Deconditioning. Physical therapy to follow. 7. Hematuria. Follow-up with urologist recommendations. Monitor H&H Disposition and plan: Continue with antibiotics. Awaiting urine cytology. Continue in-house monitoring for now Discussed plan of care with Dr. Burns Problems: Subjective 24 Hr Interval Summary Free Text/Dictation Comfortable at present. 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 EXECUTIVE OFFICER II-XII intact, nl mental status, nl speech Skin: nl turgor Results Result Diagram: 10/07/16 0600 10/07/16 0600 Results 24 hrs Laboratory Tests Test 10/06/16 17:02 10/07/16 06:00 Vancomycin Level Trough 6.2 L White Blood Count 7.0 Red Blood Count 4.28 Hemoglobin 12.9 Hematocrit 40.0 Mean Corpuscular Volume 93.5 Mean Corpuscular Hemoglobin 30.1 Mean Corpuscular Hemoglobin Concent 32.3 Red Cell Distribution Width 14.6 H Platelet Count 212 Mean Platelet Volume 11.0 H Neutrophils % 62.9 Lymphocytes % 18.8 Monocytes % 11.9 H Eosinophils % 5.5 Basophils % 0.6 Nucleated Red Blood Cells % 0.0 Neutrophils # (Manual) 4 Lymphocytes # 1.3 Monocytes # 0.8 Eosinophils # 0.4 Basophils # 0.0 Nucleated Red Blood Cells # 0.0 Prothrombin Time 14.9 H Prothrombin Time Ratio 1.2 INR International Normalized Ratio 1.16 Sodium Level 138 Potassium Level 3.6 Chloride Level 100 Carbon Dioxide Level 30 Anion Gap 12 Blood Urea Nitrogen 15 Creatinine 0.52 Glucose Level 107 Calcium Level 9.1 Phosphorus Level 3.8 Magnesium Level 2.0 Medications Medications Current Medications Cyanocobalamin (Vitamin B12) 100 mcg DAILY PO Last administered on 10/07/16 09 :03; Admin Dose 100 MCG; Start 10/04/16 at 09:00 Diltiazem HCl (Cardizem Sr) 60 mg TID PO Last administered on 10/07/16 09:04; Admin Dose 60 MG; Start 10/03/16 at 18:00 Docusate Sodium (Colace) 250 mg DAILY PRN PO CONSTIPATION Last administered on 10/06/16 09:36; Admin Dose 250 MG; Start 10/03/16 at 15:00 Folic Acid (Folic Acid) 1 mg DAILY PO Last administered on 10/07/16 09:04; Admin Dose 1 MG; Start 10/04/16 at 09:00 Furosemide (Lasix) 20 mg DAILY PO Last administered on 10/07/16 09:03; Admin Dose 20 MG; Start 10/04/16 at 09:00 Losartan Potassium (Cozaar) 100 mg DAILY PO Last administered on 10/07/16 09: 04; Admin Dose 100 MG; Start 10/04/16 at 09:00 Senna/Docusate Sodium (Senokot-S) 1 tab DAILY PO Last administered on 09:02; Admin Dose 1 TAB; Start 10/04/16 at 09:00 Pantoprazole 40 mg 40 mg DAILY@06 PO Last administered on 10/07/16 05:21; Admin Dose 40 MG; Start 10/04/16 at 06:00 Cefepime HCl (Maxipime 2gm/50 ml (Pmx)) 50 ml @ 100 mls/hr Q24H IVPB Last administered on 10/06/16 13:18; Admin Dose 100 MLS/HR; Start 10/04/16 at 13:00 Docusate Sodium (Colace) 100 mg Q12H PRN PO CONSTIPATION; Start 10/03/16 at 16: 00 Magnesium Hydroxide (Milk Of Mag) 30 ml DAILY PRN PO CONSTIPATION Last administered on 10/07/16 01:03; Admin Dose 30 ML; Start 10/03/16 at 16:00 Bisacodyl (Dulcolax Supp) 10 mg DAILY PRN [place] CONSTIPATION; Start 10/03/16 at 16 :00 Labetalol HCl (Labetalol) 10 mg Q4H PRN IV for SBP greater than 160 Last administered on 10/05/16 00:13; Admin Dose 10 MG; Start 10/03/16 at 21:00 Lorazepam (Ativan) 1 mg Q6H PRN PO ANXIETY Last administered on 10/05/16 15:41 ; Admin Dose 1 MG; Start 10/03/16 at 23:30 Hydromorphone HCl (Dilaudid) 0.5 mg Q4H PRN IV PAIN Last administered on 08:58; Admin Dose 0.5 MG; Start 10/04/16 at 13:00 Tramadol HCl (Ultram) 100 mg Q6 PO Last administered on 10/07/16 12:19; Admin Dose 100 MG; Start 10/05/16 at 18:00 Amlodipine Besylate 5 mg 5 mg BID PO Last administered on 10/07/16 09:03; Admin Dose 5 MG; Start 10/05/16 at 13:30 Vancomycin HCl/ Sodium Chloride (Vancocin/NS) 150 ml @ 75 mls/hr Q12H IVPB Last administered on 10/07/16 05:21; Admin Dose 75 MLS/HR; Start 10/07/16 at 06 :00 Miscellaneous Information (*Rx Drug Level Order Reminder*) VANCOMYCIN TROUGH AT 1700 ONCE ONCE XX ; Start 10/08/16 at 17:00; Stop 10/08/16 at 17:01 Warfarin Sodium (Coumadin) 4 mg DAILY@17 PO ; Start 10/07/16 at 17:00 HUMBERTO PERALTA Oct 07, 2016 12:57
[2016-10-07] MEDS: CEFEPIME 2GM/50 ML (PMX) 50 ML IVPB SCH (14:07)
[2016-10-07] MEDS: WARFARIN 2 MG TAB PO SCH (17:26)
[2016-10-07] MEDS: LORAZEPAM 1 MG TAB PO PRN (22:11)
[2016-10-08] VITALS (12 sets, daily range): BP systolic 134–158; BP diastolic 60–87; PULSE 90–116; RESP 16–19
[2016-10-08] MEDS: traMADol 50 MG TAB PO SCH ×5 (00:10→23:14)
[2016-10-08] MEDS: PANTOPRAZOLE (EC) 40 MG TAB PO SCH (05:16)
[2016-10-08] MEDS: VANCOMYCIN 750 MG in SOD CHLORIDE 0.9% 150 ML IVPB SCH ×2 (05:17→17:08)
[2016-10-08 06:54] LABS: BASOPHIL # 0.1 10^3/ul (0.0-0.1); BASOPHILS % 0.9 % (0.0-2.0); EOSINOPHILS # 0.4 10^3/ul (0.0-0.5); EOSINOPHILS % 6.2 % (0.0-7.0); HEMATOCRIT 39.1 % (37.0-47.0); HEMOGLOBIN 12.6 g/dl (12.0-16.0); LYMPHOCYTES # 1.4 10^3/ul (0.8-2.9); LYMPHOCYTES % 20.3 % (15.0-51.0); MEAN CORPUSCULAR HEMOGLOBIN 29.9 pg (29.0-33.0); MEAN CORPUSCULAR HGB CONC 32.2 g/dl (32.0-37.0); MEAN CORPUSCULAR VOLUME 92.9 fl (82.0-101.0); MONOCYTE # 0.8 10^3/ul (0.3-0.9); MONOCYTES % 11.9 % (0.0-11.0); NEUTROPHILS % 60.4 % (39.0-77.0); PLATELET COUNT 200 10^3/UL (140-415); RED BLOOD COUNT 4.21 10^6/ul (4.20-5.40); RED CELL DISTRIBUTION WIDTH 14.5 % (11.5-14.5); WHITE BLOOD COUNT 6.7 10^3/ul (4.8-10.8)
[2016-10-08 07:12] LABS: CALCIUM 8.8 mg/dl (8.4-10.2); CREATININE 0.47 mg/dl (0.44-1.00); POTASSIUM 3.7 mmol/L (3.5-5.1)
[2016-10-08] MEDS: HYDROmorphONE 1 MG/ML SYG IV PRN ×3 (09:11→19:35)
[2016-10-08] MEDS: CYANOCOBALAMIN 100 MCG TAB PO SCH (09:11)
[2016-10-08] MEDS: FOLIC ACID 1 MG TAB PO SCH (09:12)
[2016-10-08] MEDS: SENNA/DOCUSATE NA (8.6MG/50MG) TAB PO SCH (09:12)
[2016-10-08] MEDS: DILTIAZEM (SR) 60 MG CAP PO SCH ×3 (09:12→21:15)
[2016-10-08] MEDS: LOSARTAN 50 MG TAB PO SCH (09:12)
[2016-10-08] MEDS: AMLODIPINE 5 MG TAB PO SCH ×2 (09:12→21:14)
[2016-10-08] MEDS: FUROSEMIDE 20 MG TAB PO SCH (09:12)
--- NOTE | 2016-10-08 11:25 | CONS ---
Date/Time of Note Date/Time of Note DATE: 10/08/16 TIME: 11:23 Assessment/Plan Assessment/Plan Additional Assessment/Plan Assessment recommendations; 1. Patient admitted with shortness of breath likely from underlying asthma with significant clinical improvement. 2. 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 3. Possibly endometrial malignancy. Discontinue antibiotics. Consider discharge. Patient will need to have outpatient workup regarding vaginal bleeding. Consultation Date/Type/Reason Admit Date/Time Oct 03, 2016 at 14:16 Initial Consult Date 10/04/16 Type of Consultation: Pulmonary 24 HR Interval Summary Free Text/Dictation Patient condition is stable. Denies any shortness of breath, chest pain or wheezing. Has occasional cough. General exam; elderly woman, awake and alert. Currently in no distress. Exam/Review of Systems Vital Signs Vitals Vital Signs Date Time Temp Pulse Resp B/P Pulse Ox O2 Delivery O2 Flow Rate FiO2 10/08/16 08:39 90 10/08/16 08:02 98.3 18 158/77 95 10/07/16 20:00 Nasal Cannula 2.0 Intake and Output 10/07/16 10/07/16 10/08/16 15:00 23:00 07:00 Intake Total 800 ml Output Total 100 ml Balance 700 ml Exam HEENT exam; supple neck, no JVD. No lymphadenopathy. Midline trachea. No thyromegaly. Pharynx is clear. Pupils are small bilaterally. Chest exam; diminished but clear breath sounds. S1-S2 audible, no murmurs. Regular rhythm. Abdomen exam; soft, nontender. No organomegaly. Nondistended. Bowel sounds audible. Extremity exam; no peripheral edema. MECHANICAL SHOVEL OPERATOR exam; no focal deficit. Results Result Diagram: 10/08/16 0546 10/08/16 0546 Results 24 hrs Laboratory Tests Test 10/08/16 05:46 White Blood Count 6.7 Red Blood Count 4.21 Hemoglobin 12.6 Hematocrit 39.1 Mean Corpuscular Volume 92.9 Mean Corpuscular Hemoglobin 29.9 Mean Corpuscular Hemoglobin Concent 32.2 Red Cell Distribution Width 14.5 Platelet Count 200 Mean Platelet Volume 11.0 H Neutrophils % 60.4 Lymphocytes % 20.3 Monocytes % 11.9 H Eosinophils % 6.2 Basophils % 0.9 Nucleated Red Blood Cells % 0.0 Neutrophils # (Manual) 4 Lymphocytes # 1.4 Monocytes # 0.8 Eosinophils # 0.4 Basophils # 0.1 Nucleated Red Blood Cells # 0.0 Sodium Level 135 Potassium Level 3.7 Chloride Level 99 Carbon Dioxide Level 29 Anion Gap 11 Blood Urea Nitrogen 11 Creatinine 0.47 Glucose Level 103 Calcium Level 8.8 Medications Medications Current Medications Cyanocobalamin (Vitamin B12) 100 mcg DAILY PO Last administered on 10/08/16 09 :11; Admin Dose 100 MCG; Start 10/04/16 at 09:00 Diltiazem HCl (Cardizem Sr) 60 mg TID PO Last administered on 10/08/16 09:12; Admin Dose 60 MG; Start 10/03/16 at 18:00 Docusate Sodium (Colace) 250 mg DAILY PRN PO CONSTIPATION Last administered on 10/06/16 09:36; Admin Dose 250 MG; Start 10/03/16 at 15:00 Folic Acid (Folic Acid) 1 mg DAILY PO Last administered on 10/08/16 09:12; Admin Dose 1 MG; Start 10/04/16 at 09:00 Furosemide (Lasix) 20 mg DAILY PO Last administered on 10/08/16 09:12; Admin Dose 20 MG; Start 10/04/16 at 09:00 Losartan Potassium (Cozaar) 100 mg DAILY PO Last administered on 10/08/16 09: 12; Admin Dose 100 MG; Start 10/04/16 at 09:00 Senna/Docusate Sodium (Senokot-S) 1 tab DAILY PO Last administered on 09:12; Admin Dose 1 TAB; Start 10/04/16 at 09:00 Pantoprazole 40 mg 40 mg DAILY@06 PO Last administered on 10/08/16 05:16; Admin Dose 40 MG; Start 10/04/16 at 06:00 Cefepime HCl (Maxipime 2gm/50 ml (Pmx)) 50 ml @ 100 mls/hr Q24H IVPB Last administered on 10/07/16 14:07; Admin Dose 100 MLS/HR; Start 10/04/16 at 13:00 Docusate Sodium (Colace) 100 mg Q12H PRN PO CONSTIPATION; Start 10/03/16 at 16: 00 Magnesium Hydroxide (Milk Of Mag) 30 ml DAILY PRN PO CONSTIPATION Last administered on 10/07/16 01:03; Admin Dose 30 ML; Start 10/03/16 at 16:00 Bisacodyl (Dulcolax Supp) 10 mg DAILY PRN [place] CONSTIPATION; Start 10/03/16 at 16 :00 Labetalol HCl (Labetalol) 10 mg Q4H PRN IV for SBP greater than 160 Last administered on 10/05/16 00:13; Admin Dose 10 MG; Start 10/03/16 at 21:00 Lorazepam (Ativan) 1 mg Q6H PRN PO ANXIETY Last administered on 10/07/16 22:11 ; Admin Dose 1 MG; Start 10/03/16 at 23:30 Hydromorphone HCl (Dilaudid) 0.5 mg Q4H PRN IV PAIN Last administered on 09:11; Admin Dose 0.5 MG; Start 10/04/16 at 13:00 Tramadol HCl (Ultram) 100 mg Q6 PO Last administered on 10/08/16 05:17; Admin Dose 100 MG; Start 10/05/16 at 18:00 Amlodipine Besylate 5 mg 5 mg BID PO Last administered on 10/08/16 09:12; Admin Dose 5 MG; Start 10/05/16 at 13:30 Vancomycin HCl/ Sodium Chloride (Vancocin/NS) 150 ml @ 75 mls/hr Q12H IVPB Last administered on 10/08/16 05:17; Admin Dose 75 MLS/HR; Start 10/07/16 at 06 :00 Miscellaneous Information (*Rx Drug Level Order Reminder*) VANCOMYCIN TROUGH AT 1700 ONCE ONCE XX ; Start 10/08/16 at 17:00; Stop 10/08/16 at 17:01 Warfarin Sodium (Coumadin) 4 mg DAILY@17 PO Last administered on 10/07/16 17: 26; Admin Dose 4 MG; Start 10/07/16 at 17:00 VINCE LONG Oct 08, 2016 11:25
[2016-10-08] MEDS: CEFEPIME 2GM/50 ML (PMX) 50 ML IVPB SCH (13:21)
--- NOTE | 2016-10-08 15:58 | PN ---
Date/Time of Note Date/Time of Note DATE: 10/08/16 TIME: 15:49 Assessment/Plan VTE Prophylaxis VTE Prophylaxis Intervention: SCD's Lines/Catheters IV [facility] Type (from [facility] Urinary Cath still in place: No Assessment/Plan Chief Complaint/Hosp Course Impression and plan 1. Postmenopausal vaginal bleeding vs. suspect hematuria. Patient did have CT scan of her abdomen and pelvis that did show endometrial thickness measuring 10 mm were normal limits in a postmenopausal patient with report considering further evaluation to exclude endometrial neoplasm. . Patient also noted with UTI. Will monitor for now. Monitor H&H. Urologist did see the patient. Plan for follow-up on cytology of the urine to check for malignant cells. Patient was seen by director of cardiac cath lab as well who recommended no inpatient intervention but for outpatient care and treatment 2. Pneumonia. Continue antibiotics for now.. Appears to be improving 3. Urinary tract infection with cystitis. Continue with antibiotic 4. Essential hypertension. Continue antihypertensives and adjust needed 5. Sciatica with back pain. Continue with analgesics 6. Deconditioning. Physical therapy to follow. 7. Hematuria. Follow-up with urologist recommendations. Monitor H&H Disposition and plan: Continue with antibiotics. Awaiting urine cytology still. Continue in-house monitoring for now. Plan for possible long-term facility placement when stable for discharge Discussed plan of care with Dr. Burns Problems: Subjective 24 Hr Interval Summary Free Text/Dictation No signs or symptoms of distress this time. 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 OPERATIONS OFFICER II-XII intact, nl mental status, nl speech Skin: nl turgor Results Result Diagram: 10/08/16 0546 10/08/16 0546 Results 24 hrs Laboratory Tests Test 10/08/16 05:46 White Blood Count 6.7 Red Blood Count 4.21 Hemoglobin 12.6 Hematocrit 39.1 Mean Corpuscular Volume 92.9 Mean Corpuscular Hemoglobin 29.9 Mean Corpuscular Hemoglobin Concent 32.2 Red Cell Distribution Width 14.5 Platelet Count 200 Mean Platelet Volume 11.0 H Neutrophils % 60.4 Lymphocytes % 20.3 Monocytes % 11.9 H Eosinophils % 6.2 Basophils % 0.9 Nucleated Red Blood Cells % 0.0 Neutrophils # (Manual) 4 Lymphocytes # 1.4 Monocytes # 0.8 Eosinophils # 0.4 Basophils # 0.1 Nucleated Red Blood Cells # 0.0 Sodium Level 135 Potassium Level 3.7 Chloride Level 99 Carbon Dioxide Level 29 Anion Gap 11 Blood Urea Nitrogen 11 Creatinine 0.47 Glucose Level 103 Calcium Level 8.8 Medications Medications Current Medications Cyanocobalamin (Vitamin B12) 100 mcg DAILY PO Last administered on 10/08/16 09 :11; Admin Dose 100 MCG; Start 10/04/16 at 09:00 Diltiazem HCl (Cardizem Sr) 60 mg TID PO Last administered on 10/08/16 13:21; Admin Dose 60 MG; Start 10/03/16 at 18:00 Docusate Sodium (Colace) 250 mg DAILY PRN PO CONSTIPATION Last administered on 10/06/16 09:36; Admin Dose 250 MG; Start 10/03/16 at 15:00 Folic Acid (Folic Acid) 1 mg DAILY PO Last administered on 10/08/16 09:12; Admin Dose 1 MG; Start 10/04/16 at 09:00 Furosemide (Lasix) 20 mg DAILY PO Last administered on 10/08/16 09:12; Admin Dose 20 MG; Start 10/04/16 at 09:00 Losartan Potassium (Cozaar) 100 mg DAILY PO Last administered on 10/08/16 09: 12; Admin Dose 100 MG; Start 10/04/16 at 09:00 Senna/Docusate Sodium (Senokot-S) 1 tab DAILY PO Last administered on 09:12; Admin Dose 1 TAB; Start 10/04/16 at 09:00 Pantoprazole 40 mg 40 mg DAILY@06 PO Last administered on 10/08/16 05:16; Admin Dose 40 MG; Start 10/04/16 at 06:00 Cefepime HCl (Maxipime 2gm/50 ml (Pmx)) 50 ml @ 100 mls/hr Q24H IVPB Last administered on 10/08/16 13:21; Admin Dose 100 MLS/HR; Start 10/04/16 at 13:00 Docusate Sodium (Colace) 100 mg Q12H PRN PO CONSTIPATION; Start 10/03/16 at 16: 00 Magnesium Hydroxide (Milk Of Mag) 30 ml DAILY PRN PO CONSTIPATION Last administered on 10/07/16 01:03; Admin Dose 30 ML; Start 10/03/16 at 16:00 Bisacodyl (Dulcolax Supp) 10 mg DAILY PRN [place]STIP[place]; Start 10/03/16 at 16 :00 Labetalol HCl (Labetalol) 10 mg Q4H PRN IV for SBP greater than 160 Last administered on 10/05/16 00:13; Admin Dose 10 MG; Start 10/03/16 at 21:00 Lorazepam (Ativan) 1 mg Q6H PRN PO ANXIETY Last administered on 10/07/16 22:11 ; Admin Dose 1 MG; Start 10/03/16 at 23:30 Hydromorphone HCl (Dilaudid) 0.5 mg Q4H PRN IV PAIN Last administered on 15:31; Admin Dose 0.5 MG; Start 10/04/16 at 13:00 Tramadol HCl (Ultram) 100 mg Q6 PO Last administered on 10/08/16 11:50; Admin Dose 100 MG; Start 10/05/16 at 18:00 Amlodipine Besylate 5 mg 5 mg BID PO Last administered on 10/08/16 09:12; Admin Dose 5 MG; Start 10/05/16 at 13:30 Vancomycin HCl/ Sodium Chloride (Vancocin/NS) 150 ml @ 75 mls/hr Q12H IVPB Last administered on 10/08/16 05:17; Admin Dose 75 MLS/HR; Start 10/07/16 at 06 :00 Miscellaneous Information (*Rx Drug Level Order Reminder*) VANCOMYCIN TROUGH AT 1700 ONCE ONCE XX ; Start 10/08/16 at 17:00; Stop 10/08/16 at 17:01 Warfarin Sodium (Coumadin) 4 mg DAILY@17 PO Last administered on 10/07/16 17: 26; Admin Dose 4 MG; Start 10/07/16 at 17:00 HUMBERTO PERALTA Oct 08, 2016 15:58
[2016-10-08] MEDS: WARFARIN 2 MG TAB PO SCH (17:07)
[2016-10-08] MEDS: LORAZEPAM 1 MG TAB PO PRN (23:14)
[2016-10-09] VITALS (12 sets, daily range): BP systolic 105–167; BP diastolic 42–81; PULSE 78–119; RESP 17–20
[2016-10-09] MEDS ORDERED: LORAZEPAM 2 MG INJ IV PRN (00:48)
[2016-10-09] MEDS ORDERED: HALOPERIDOL 5 MG INJ IM ONE (01:00)
[2016-10-09] MEDS: LABETALOL HCL 20MG INJ IV PRN (04:25)
[2016-10-09] MEDS: PANTOPRAZOLE (EC) 40 MG TAB PO SCH (04:48)
[2016-10-09] MEDS: traMADol 50 MG TAB PO SCH ×3 (04:48→18:29)
[2016-10-09] MEDS: VANCOMYCIN 750 MG in SOD CHLORIDE 0.9% 150 ML IVPB SCH (04:48)
[2016-10-09] MEDS: LORAZEPAM 1 MG TAB PO PRN (04:56)
[2016-10-09 07:28] LABS: CREATININE 0.53 mg/dl (0.44-1.00)
[2016-10-09 07:31] LABS: INR 1.17; PT RATIO 1.2
[2016-10-09] MEDS ORDERED: ENBREL SC SCH (09:00)
[2016-10-09] MEDS: CYANOCOBALAMIN 100 MCG TAB PO SCH (09:18)
[2016-10-09] MEDS: FUROSEMIDE 20 MG TAB PO SCH (09:19)
[2016-10-09] MEDS: DILTIAZEM (SR) 60 MG CAP PO SCH ×3 (09:19→20:32)
[2016-10-09] MEDS: FOLIC ACID 1 MG TAB PO SCH (09:20)
[2016-10-09] MEDS: LOSARTAN 50 MG TAB PO SCH (09:20)
[2016-10-09] MEDS: SENNA/DOCUSATE NA (8.6MG/50MG) TAB PO SCH (09:26)
[2016-10-09] MEDS: AMLODIPINE 5 MG TAB PO SCH ×2 (09:26→20:32)
[2016-10-09] MEDS: HYDROmorphONE 1 MG/ML SYG IV PRN ×3 (09:30→20:38)
[2016-10-09] MEDS: DOCUSATE SODIUM 250 MG CAP PO PRN (09:33)
--- NOTE | 2016-10-09 11:28 | CONS ---
Date/Time of Note Date/Time of Note DATE: 10/09/16 TIME: 11:26 Assessment/Plan Assessment/Plan Additional Assessment/Plan Assessment and recommendations; 1. Patient admitted with bronchitis and bronchospasm with intermittent wheezing. Add Solu-Medrol 40 mg every 8 hours at least for 48 hours. Continue current supportive care. I did have a detailed discussion patient's daughter at bedside and answered all their questions. Consultation Date/Type/Reason Admit Date/Time Oct 03, 2016 at 14:16 Initial Consult Date 10/04/16 Type of Consultation: Pulmonary 24 HR Interval Summary Free Text/Dictation Patient condition is stable. According to the patient's daughter the patient has episodes of coughing with production of sputum as well as occasional wheezing off and on. General exam; elderly woman, awake, currently in no distress. Exam/Review of Systems Vital Signs Vitals Vital Signs Date Time Temp Pulse Resp B/P Pulse Ox O2 Delivery O2 Flow Rate FiO2 10/09/16 10:00 Nasal Cannula 2.0 10/09/16 08:58 80 10/09/16 07:39 98.4 18 125/56 97 Intake and Output 10/08/16 10/08/16 10/09/16 15:00 23:00 07:00 Intake Total 200 ml 750 ml 550 ml Output Total 100 ml Balance 200 ml 650 ml 550 ml Exam HEENT exam; supple neck, no JVD. No lymphadenopathy. Midline trachea. No thyromegaly. Pupils are small bilaterally. Patient has multiple carious teeth. Chest exam; diminished breath sounds bilaterally with very minimal wheezing. S1 -S2 audible, no murmurs. Regular rhythm. Abdomen exam; soft, no organomegaly. Bowel sounds audible. Nontender. Extremity exam; no peripheral edema. TOP SPOTTER exam; patient moves all 4 extremities on command. Results Result Diagram: 10/08/16 0546 10/09/16 0621 Results 24 hrs Laboratory Tests Test 10/08/16 17:06 10/09/16 06:21 Vancomycin Level Trough 11.8 Prothrombin Time 15.0 H Prothrombin Time Ratio 1.2 INR International Normalized Ratio 1.17 Blood Urea Nitrogen 13 Creatinine 0.53 Medications Medications Current Medications Cyanocobalamin (Vitamin B12) 100 mcg DAILY PO Last administered on 10/09/16t 09 :18; Admin Dose 100 MCG; Start 10/04/16 at 09:00 Diltiazem HCl (Cardizem Sr) 60 mg TID PO Last administered on 10/09/16 09:19; Admin Dose 60 MG; Start 10/03/16 at 18:00 Docusate Sodium (Colace) 250 mg DAILY PRN PO CONSTIPATION Last administered on 10/09/16 09:33; Admin Dose 250 MG; Start 10/03/16 at 15:00 Folic Acid (Folic Acid) 1 mg DAILY PO Last administered on 10/09/16 09:20; Admin Dose 1 MG; Start 10/04/16 at 09:00 Furosemide (Lasix) 20 mg DAILY PO Last administered on 10/09/16 09:19; Admin Dose 20 MG; Start 10/04/16 at 09:00 Losartan Potassium (Cozaar) 100 mg DAILY PO Last administered on 10/09/16 09: 20; Admin Dose 100 MG; Start 10/04/16 at 09:00 Senna/Docusate Sodium (Senokot-S) 1 tab DAILY PO Last administered on 09:26; Admin Dose 1 TAB; Start 10/04/16 at 09:00 Pantoprazole 40 mg 40 mg DAILY@06 PO Last administered on 10/09/16 04:48; Admin Dose 40 MG; Start 10/04/16 at 06:00 Cefepime HCl (Maxipime 2gm/50 ml (Pmx)) 50 ml @ 100 mls/hr Q24H IVPB Last administered on 10/08/16 13:21; Admin Dose 100 MLS/HR; Start 10/04/16 at 13:00 Docusate Sodium (Colace) 100 mg Q12H PRN PO CONSTIPATION; Start 10/03/16 at 16: 00 Magnesium Hydroxide (Milk Of Mag) 30 ml DAILY PRN PO CONSTIPATION Last administered on 10/07/16 01:03; Admin Dose 30 ML; Start 10/03/16 at 16:00 Bisacodyl (Dulcolax Supp) 10 mg DAILY PRN [place] CONSTIPATION; Start 10/03/16 at 16 :00 Labetalol HCl (Labetalol) 10 mg Q4H PRN IV for SBP greater than 160 Last administered on 10/09/16 04:25; Admin Dose 10 MG; Start 10/03/16 at 21:00 Lorazepam (Ativan) 1 mg Q6H PRN PO ANXIETY Last administered on 10/09/16 04:56 ; Admin Dose 1 MG; Start 10/03/16 at 23:30 Hydromorphone HCl (Dilaudid) 0.5 mg Q4H PRN IV PAIN Last administered on 09:30; Admin Dose 0.5 MG; Start 10/04/16 at 13:00 Tramadol HCl (Ultram) 100 mg Q6 PO Last administered on 10/09/16 04:48; Admin Dose 100 MG; Start 10/05/16 at 18:00 Amlodipine Besylate 5 mg 5 mg BID PO Last administered on 10/09/16 09:26; Admin Dose 5 MG; Start 10/05/16 at 13:30 Vancomycin HCl/ Sodium Chloride (Vancocin/NS) 150 ml @ 75 mls/hr Q12H IVPB Last administered on 10/09/16 04:48; Admin Dose 75 MLS/HR; Start 10/07/16 at 06 :00 Warfarin Sodium (Coumadin) 4 mg DAILY@17 PO Last administered on 10/08/16 17: 07; Admin Dose 4 MG; Start 10/07/16 at 17:00 VINCE LONG Oct 09, 2016 11:28
[2016-10-09] MEDS: CEFEPIME 2GM/50 ML (PMX) 50 ML IVPB SCH (13:00)
--- NOTE | 2016-10-09 13:28 | PN ---
Date/Time of Note Date/Time of Note DATE: 10/09/16 TIME: 13:28 Assessment/Plan VTE Prophylaxis VTE Prophylaxis Intervention: LMWH Lines/Catheters IV [facility] Saline Lock Urinary Cath still in place: No Assessment/Plan Chief Complaint/Hosp Course 1. Postmenopausal vaginal bleeding. Pelvic ultrasound showing small uterus with ovaries not visualized. CT scan of the abdomen and pelvis showing endometrial thickening measuring up to 10 mm. 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 Of note, the patient had elevated INR upon admission that might have caused the bleeding. 2. Hematuria. Resolved. Status post evaluation by urology. Hematuria most probably secondary to underlying urinary tract infection. 3. History of cardiac arrhythmias. Was on anticoagulation at home. Currently not in any arrhythmia. Continue telemetry monitoring. 4. Chronic pain. Being followed by pain management team. 5. Possible underlying community-acquired pneumonia. CT scan is negative for any acute infiltrates. Probably has underlying acute bronchitis. Continue antimicrobials. 6. Urinary tract infection. Culture positive for Corynebacterium Jk. Continue antimicrobials. 7. Essential hypertension. Continue antihypertensives. 8. Deep venous thrombosis in the left lower extremity involving the popliteal vein. The patient is on Coumadin. However the patient's INR is subtherapeutic. Hence we will start the patient on Lovenox for bridging. 9. Fluids, electrolytes, and nutrition. Carbohydrate controlled diet. 10. DVT prophylaxis. Therapeutic anticoagulation. 11. Plan. Continue antimicrobials. ID consult to obtain ABX recommendation. Add Miralax for constipation. Case discussed with Dr. Kaur. Problems: Subjective 24 Hr Interval Summary Free Text/Dictation The patient asking for pain medications [id number]. Exam/Review of Systems Vital Signs Vitals Vital Signs Date Time Temp Pulse Resp B/P Pulse Ox O2 Delivery O2 Flow Rate FiO2 10/09/16 12:13 78 10/09/16 11:47 98.3 18 110/42 97 10/09/16 10:00 Nasal Cannula 2.0 Intake and Output 10/08/16 10/08/16 10/09/16 15:00 23:00 07:00 Intake Total 200 ml 750 ml 550 ml Output Total 100 ml Balance 200 ml 650 ml 550 ml Exam General: Adequately build 81 year-old female lying in bed in no apparent distress. HEENT: Normocephalic, atraumatic. Eyes: Anicteric sclerae, conjunctivae clear. ENT: Nasal septum midline, oral mucosa moist. Neck supple, no JVD noticed. Respiratory: Bilaterally clear breath sounds. No use of accessory muscles of respiration. No adventitious breath sounds. Cardiovascular: S1, S2 heard. Regular rate and rhythm. Abdomen: Soft, nontender, and nondistended. Bowel sounds hypoactive in all 4 quadrants. Genitourinary: Deferred. Extremities: No cyanosis, no clubbing, no edema. Peripheral pulses palpable. Neurologic: The patient is awake and alert. Follows commands. Results Result Diagram: 10/08/16 0546 10/09/16 0621 Results 24 hrs Laboratory Tests Test 10/08/16 17:06 10/09/16 06:21 Vancomycin Level Trough 11.8 Prothrombin Time 15.0 H Prothrombin Time Ratio 1.2 INR International Normalized Ratio 1.17 Blood Urea Nitrogen 13 Creatinine 0.53 Medications Medications Current Medications Cyanocobalamin (Vitamin B12) 100 mcg DAILY PO Last administered on 10/09/16 09 :18; Admin Dose 100 MCG; Start 10/04/16 at 09:00 Diltiazem HCl (Cardizem Sr) 60 mg TID PO Last administered on 10/09/16 13:00; Admin Dose 60 MG; Start 10/03/16 at 18:00 Docusate Sodium (Colace) 250 mg DAILY PRN PO CONSTIPATION Last administered on 10/09/16 09:33; Admin Dose 250 MG; Start 10/03/16 at 15:00 Folic Acid (Folic Acid) 1 mg DAILY PO Last administered on 10/09/16 09:20; Admin Dose 1 MG; Start 10/04/16 at 09:00 Furosemide (Lasix) 20 mg DAILY PO Last administered on 10/09/16 09:19; Admin Dose 20 MG; Start 10/04/16 at 09:00 Losartan Potassium (Cozaar) 100 mg DAILY PO Last administered on 10/09/16 09: 20; Admin Dose 100 MG; Start 10/04/16 at 09:00 Senna/Docusate Sodium (Senokot-S) 1 tab DAILY PO Last administered on 09:26; Admin Dose 1 TAB; Start 10/04/16 at 09:00 Pantoprazole 40 mg 40 mg DAILY@06 PO Last administered on 10/09/16 04:48; Admin Dose 40 MG; Start 10/04/16 at 06:00 Cefepime HCl (Maxipime 2gm/50 ml (Pmx)) 50 ml @ 100 mls/hr Q24H IVPB Last administered on 10/09/16 13:00; Admin Dose 100 MLS/HR; Start 10/04/16 at 13:00 Docusate Sodium (Colace) 100 mg Q12H PRN PO CONSTIPATION; Start 10/03/16 at 16: 00 Magnesium Hydroxide (Milk Of Mag) 30 ml DAILY PRN PO CONSTIPATION Last administered on 10/07/16 01:03; Admin Dose 30 ML; Start 10/03/16 at 16:00 Bisacodyl (Dulcolax Supp) 10 mg DAILY PRN [place] CONSTIPATION; Start 10/03/16 at 16 :00 Labetalol HCl (Labetalol) 10 mg Q4H PRN IV for SBP greater than 160 Last administered on 10/09/16 04:25; Admin Dose 10 MG; Start 10/03/16 at 21:00 Lorazepam (Ativan) 1 mg Q6H PRN PO ANXIETY Last administered on 10/09/16 04:56 ; Admin Dose 1 MG; Start 10/03/16 at 23:30 Hydromorphone HCl (Dilaudid) 0.5 mg Q4H PRN IV PAIN Last administered on 09:30; Admin Dose 0.5 MG; Start 10/04/16 at 13:00 Tramadol HCl (Ultram) 100 mg Q6 PO Last administered on 10/09/16 12:59; Admin Dose 100 MG; Start 10/05/16 at 18:00 Amlodipine Besylate 5 mg 5 mg BID PO Last administered on 10/09/16 09:26; Admin Dose 5 MG; Start 10/05/16 at 13:30 Vancomycin HCl/ Sodium Chloride (Vancocin/NS) 150 ml @ 75 mls/hr Q12H IVPB Last administered on 10/09/16 04:48; Admin Dose 75 MLS/HR; Start 10/07/16 at 06 :00 Warfarin Sodium (Coumadin) 4 mg DAILY@17 PO Last administered on 10/08/16 17: 07; Admin Dose 4 MG; Start 10/07/16 at 17:00 Methylprednisolone Sodium Succinate (Solu-Medrol) 40 mg Q8 IV ; Start 10/09/16 at 14:00 FARZANEH CHAN NP Oct 09, 2016 13:28
[2016-10-09] MEDS: METHYLPREDNISOLONE 40 MG INJ IV SCH ×2 (13:32→20:38)
--- NOTE | 2016-10-09 15:51 | CONS ---
Date/Time of Note Date/Time of Note DATE: 10/09/16 TIME: 15:49 Consultation Date/Type/Reason Admit Date/Time Oct 03, 2016 at 14:16 Date of Consultation: Oct 09, 2016 Type of Consultation: ID Reason for Consultation Antibiotic management Constitutional: no complaints Eyes: no complaints ENT: no complaints Respiratory: no complaints Cardiovascular: No chest pain Gastrointestinal: no complaints Genitourinary: No bleeding, No hematuria Musculoskeletal: no complaints Skin: no complaints Neurologic: no complaints Endocrine: no complaints Lymphatic: no complaints Psychological: no complaints Past Medical History Medical History: deep vein thrombosis, hypertension, other (Arthritis, osteoporosis,) Past Surgical History Past Surgical Hx: other (Varicose veins ligation and stripping) Social History Alcohol Use: sober Smoking Status: Never smoker Drug Use: none Exam/Review of Systems Vital Signs Vitals Vital Signs Date Time Temp Pulse Resp B/P Pulse Ox O2 Delivery O2 Flow Rate FiO2 10/09/16 15:08 98.9 90 18 105/52 97 10/09/16 10:00 Nasal Cannula 2.0 Intake and Output 10/08/16 10/08/16 10/09/16 15:00 23:00 07:00 Intake Total 200 ml 750 ml 550 ml Output Total 100 ml Balance 200 ml 650 ml 550 ml Results Result Diagram: 10/08/16 0546 10/09/16 0621 Results 24 hrs Laboratory Tests Test 10/08/16 17:06 10/09/16 06:21 Vancomycin Level Trough 11.8 Prothrombin Time 15.0 H Prothrombin Time Ratio 1.2 INR International Normalized Ratio 1.17 Blood Urea Nitrogen 13 Creatinine 0.53 Medications Medications Current Medications Cyanocobalamin (Vitamin B12) 100 mcg DAILY PO Last administered on 10/09/16 09 :18; Admin Dose 100 MCG; Start 10/04/16 at 09:00 Diltiazem HCl (Cardizem Sr) 60 mg TID PO Last administered on 10/09/16 13:00; Admin Dose 60 MG; Start 10/03/16 at 18:00 Docusate Sodium (Colace) 250 mg DAILY PRN PO CONSTIPATION Last administered on 10/09/16 09:33; Admin Dose 250 MG; Start 10/03/16 at 15:00 Folic Acid (Folic Acid) 1 mg DAILY PO Last administered on 10/09/16 09:20; Admin Dose 1 MG; Start 10/04/16 at 09:00 Furosemide (Lasix) 20 mg DAILY PO Last administered on 10/09/16 09:19; Admin Dose 20 MG; Start 10/04/16 at 09:00 Losartan Potassium (Cozaar) 100 mg DAILY PO Last administered on 10/09/16 09: 20; Admin Dose 100 MG; Start 10/04/16 at 09:00 Senna/Docusate Sodium (Senokot-S) 1 tab DAILY PO Last administered on 09:26; Admin Dose 1 TAB; Start 10/04/16 at 09:00 Pantoprazole 40 mg 40 mg DAILY@06 PO Last administered on 10/09/16 04:48; Admin Dose 40 MG; Start 10/04/16 at 06:00 Cefepime HCl (Maxipime 2gm/50 ml (Pmx)) 50 ml @ 100 mls/hr Q24H IVPB Last administered on 10/09/16 13:00; Admin Dose 100 MLS/HR; Start 10/04/16 at 13:00 Docusate Sodium (Colace) 100 mg Q12H PRN PO CONSTIPATION; Start 10/03/16 at 16: 00 Magnesium Hydroxide (Milk Of Mag) 30 ml DAILY PRN PO CONSTIPATION Last administered on 10/07/16 01:03; Admin Dose 30 ML; Start 10/03/16 at 16:00 Bisacodyl (Dulcolax Supp) 10 mg DAILY PRN [place] CONSTIPATION; Start 10/03/16 at 16 :00 Labetalol HCl (Labetalol) 10 mg Q4H PRN IV for SBP greater than 160 Last administered on 10/09/16 04:25; Admin Dose 10 MG; Start 10/03/16 at 21:00 Lorazepam (Ativan) 1 mg Q6H PRN PO ANXIETY Last administered on 10/09/16 04:56 ; Admin Dose 1 MG; Start 10/03/16 at 23:30 Hydromorphone HCl (Dilaudid) 0.5 mg Q4H PRN IV PAIN Last administered on 13:37; Admin Dose 0.5 MG; Start 10/04/16 at 13:00 Tramadol HCl (Ultram) 100 mg Q6 PO Last administered on 10/09/16 12:59; Admin Dose 100 MG; Start 10/05/16 at 18:00 Amlodipine Besylate 5 mg 5 mg BID PO Last administered on 10/09/16 09:26; Admin Dose 5 MG; Start 10/05/16 at 13:30 Vancomycin HCl/ Sodium Chloride (Vancocin/NS) 150 ml @ 75 mls/hr Q12H IVPB Last administered on 10/09/16 04:48; Admin Dose 75 MLS/HR; Start 10/07/16 at 06 :00 Warfarin Sodium (Coumadin) 4 mg DAILY@17 PO Last administered on 10/08/16 17: 07; Admin Dose 4 MG; Start 10/07/16 at 17:00 Methylprednisolone Sodium Succinate (Solu-Medrol) 40 mg Q8 IV Last administered on 10/09/16 13:32; Admin Dose 40 MG; Start 10/09/16 at 14:00 Enoxaparin Sodium (Lovenox) 85 mg Q12 SC ; Start 10/09/16 at 21:00 Polyethylene Glycol (Miralax) 17 gm BID PO ; Start 10/09/16 at 21:00 ARY PEREZ MD Oct 09, 2016 15:50
[2016-10-09] MEDS: WARFARIN 2 MG TAB PO SCH (17:30)
--- NOTE | 2016-10-09 19:26 | PN ---
Date/Time of Note Date/Time of Note DATE: 10/09/16 TIME: 19:20 Assessment/Plan VTE Prophylaxis VTE Prophylaxis Intervention: LMWH Lines/Catheters IV C[facility]ter Type (from [facility]): Saline Lock Urinary Cath still in place: No Assessment/Plan Chief Complaint/Hosp Course 81-year-old female was brought in with the possible diagnosis of vaginal bleed however on the examination there is no vaginal bleeding , urine culture is negative. the appearance on the ct scan is suggestive of urinary tract infection and cystitis. PT and INR are normal A [employer] consultation have has been done Await urine cytology results Problems: Subjective 24 Hr Interval Summary Constitutional: no complaints, other (daughter at bedside.Patient has back pain but no dysuria) Eyes: no complaints ENT: no complaints Respiratory: No cough, No pain Cardiovascular: No chest pain Gastrointestinal: No nausea, No vomiting Genitourinary: other (voiding in diaper/towel,urine is clear), No dysuria Musculoskeletal: no complaints Skin: no complaints Neurologic: no complaints Exam/Review of Systems Vital Signs Vitals Vital Signs Date Time Temp Pulse Resp B/P Pulse Ox O2 Delivery O2 Flow Rate FiO2 10/09/16 16:18 86 10/09/16 15:08 98.9 18 105/52 97 10/09/16 10:00 Nasal Cannula 2.0 Intake and Output 10/08/16 10/08/16 10/09/16 15:00 23:00 07:00 Intake Total 200 ml 750 ml 550 ml Output Total 100 ml Balance 200 ml 650 ml 550 ml Exam Constitutional: alert Psych: no complaints Head: normocephalic Eyes: nl conjunctiva ENMT: nl external ears & nose Neck: supple Respiratory: normal air movement Gastrointestinal: soft Genitourinary - Female: other (no gross hematuria), No CVA tenderness Extremities: No calf tenderness, No tenderness Results Cytology is pending Result Diagram: 10/08/16 0546 10/09/16 0621 Results 24 hrs Laboratory Tests Test 10/09/16 06:21 10/09/16 17:25 Prothrombin Time 15.0 H Prothrombin Time Ratio 1.2 INR International Normalized Ratio 1.17 Blood Urea Nitrogen 13 Creatinine 0.53 Bedside Glucose 157 Medications Medications Current Medications Cyanocobalamin (Vitamin B12) 100 mcg DAILY PO Last administered on 10/09/16t 09 :18; Admin Dose 100 MCG; Start 10/04/16 at 09:00 Diltiazem HCl (Cardizem Sr) 60 mg TID PO Last administered on 10/09/16 13:00; Admin Dose 60 MG; Start 10/03/16 at 18:00 Docusate Sodium (Colace) 250 mg DAILY PRN PO CONSTIPATION Last administered on 10/09/16 09:33; Admin Dose 250 MG; Start 10/03/16 at 15:00 Folic Acid (Folic Acid) 1 mg DAILY PO Last administered on 10/09/16 09:20; Admin Dose 1 MG; Start 10/04/16 at 09:00 Furosemide (Lasix) 20 mg DAILY PO Last administered on 10/09/16 09:19; Admin Dose 20 MG; Start 10/04/16 at 09:00 Losartan Potassium (Cozaar) 100 mg DAILY PO Last administered on 10/09/16 09: 20; Admin Dose 100 MG; Start 10/04/16 at 09:00 Senna/Docusate Sodium (Senokot-S) 1 tab DAILY PO Last administered on 09:26; Admin Dose 1 TAB; Start 10/04/16 at 09:00 Pantoprazole 40 mg 40 mg DAILY@06 PO Last administered on 10/09/16 04:48; Admin Dose 40 MG; Start 10/04/16 at 06:00 Cefepime HCl (Maxipime 2gm/50 ml (Pmx)) 50 ml @ 100 mls/hr Q24H IVPB Last administered on 10/09/16 13:00; Admin Dose 100 MLS/HR; Start 10/04/16 at 13:00 Docusate Sodium (Colace) 100 mg Q12H PRN PO CONSTIPATION; Start 10/03/16 at 16: 00 Magnesium Hydroxide (Milk Of Mag) 30 ml DAILY PRN PO CONSTIPATION Last administered on 10/07/16 01:03; Admin Dose 30 ML; Start 10/03/16 at 16:00 Bisacodyl (Dulcolax Supp) 10 mg DAILY PRN [place] CONSTIPATION; Start 10/03/16 at 16 :00 Labetalol HCl (Labetalol) 10 mg Q4H PRN IV for SBP greater than 160 Last administered on 10/09/16 04:25; Admin Dose 10 MG; Start 10/03/16 at 21:00 Lorazepam (Ativan) 1 mg Q6H PRN PO ANXIETY Last administered on 10/09/16 04:56 ; Admin Dose 1 MG; Start 10/03/16 at 23:30 Hydromorphone HCl (Dilaudid) 0.5 mg Q4H PRN IV PAIN Last administered on 13:37; Admin Dose 0.5 MG; Start 10/04/16 at 13:00 Tramadol HCl (Ultram) 100 mg Q6 PO Last administered on 10/09/16 18:29; Admin Dose 100 MG; Start 10/05/16 at 18:00 Amlodipine Besylate (Norvasc) 5 mg BID PO Last administered on 10/09/16 09:26 ; Admin Dose 5 MG; Start 10/05/16 at 13:30 Warfarin Sodium (Coumadin) 4 mg DAILY@17 PO Last administered on 10/09/16 17: 30; Admin Dose 4 MG; Start 10/07/16 at 17:00 Methylprednisolone Sodium Succinate (Solu-Medrol) 40 mg Q8 IV Last administered on 10/09/16 13:32; Admin Dose 40 MG; Start 10/09/16 at 14:00 Enoxaparin Sodium (Lovenox) 85 mg Q12 SC ; Start 10/09/16 at 21:00 Polyethylene Glycol (Miralax) 17 gm BID PO ; Start 10/09/16 at 21:00 GUERDA COLON MD Oct 09, 2016 19:26 GUERDA COLON MD Oct 09, 2016 19:26
[2016-10-09] MEDS: ENOXAPARIN 100 MG/ML SYG SC SCH (20:30)
[2016-10-09] MEDS: POLYETHYLENE GLYCOL 17 GM PACKET PO SCH (20:32)
[2016-10-10] VITALS (13 sets, daily range): BP systolic 115–177; BP diastolic 71–90; PULSE 95–107; RESP 17–20
[2016-10-10] MEDS: traMADol 50 MG TAB PO SCH ×5 (00:53→23:49)
--- NOTE | 2016-10-10 03:16 | CONS ---
DATE OF ADMISSION: 10/03/2016 DATE OF CONSULTATION: 10/09/2016 REASON FOR CONSULTATION: Antibiotic management. HISTORY OF PRESENT ILLNESS: Anthony Moy is an 81-year-old female who is admitted with postmenopausal vaginal bleeding. She is being seen for antibiotic management. Her past problems include: 1. History of DVT in bilateral lower extremities in 1993. She remains on Coumadin. 2. Hypertension. 3. Sciatica. 4. Osteoporosis. 5. Colon prolapse surgery. 6. Uterine prolapse. 7. Dementia. 8. Rheumatoid arthritis. Acutely, the patient came to the emergency room at [facility] with vaginal bleeding for 3-4 days. Her INR was 3.42, which is subtherapeutic. She is also postmenopausal. She has had dysuria and urinary frequency, as well as some shortness of breath. The patient recently had pneumonia 10 days ago and was given antibiotics for 10 days' duration. She also became gradually weak secondary to her sciatica. On examination, she had an abdominal and pelvic CT scan, which showed urinary bladder wall thickening consistent with cystitis and multiple bladder diverticula. She was seen with endometrial thickness measuring 10 mm, which is above normal limits in postmenopausal women, bringing up the possibility of endometrial neoplasm. She had sigmoid diverticulosis without diverticulitis. HOSPITAL COURSE: On admission, her white count was 6.4, H and H of 12.8 and 39.8, platelet count 241,000. BUN and creatinine 20/0.63. Her pelvic ultrasound was very limited and she has a small uterus. Ovaries not visualized. No free fluid. Chest x- ray on the showed large, hazy right perihilar density extending into the upper, lower and middle lobes obscuring the right heart border. Considerations include extensive pneumonia, hilar/pulmonary mass. CT scan of the chest was suggested if clinically indicated. A CT scan of the abdomen and pelvis was as previously outlined. CT scan of the chest showed no evidence of mass or lymphadenopathy or acute inflammatory pathology of the chest, low lung volumes with mild nonspecific chronic interstitial changes and right basilar atelectatic changes versus scarring, low-bone density with severe old T1 compression fracture and multilevel degenerative changes of thoracic spine, bilateral 1st rib fractures, old and healing. She had a DVT study, which showed deep vein thrombophlebitis in the left lower extremity involving the popliteal vein. The right lower extremity was negative. A urine grew out Corynebacterium jeikeium. Blood cultures have been negative. The patient was started on methylprednisolone. She is on vancomycin and also on cefepime. Her white count on the was 6.7. Her chest CT scan was as outlined and there was no evidence of acute inflammatory pathology in the chest. PAST MEDICAL HISTORY: Operations as outlined. FAMILY HISTORY: Noncontributory. SOCIAL HISTORY: She does not smoke, drink, or abuse drugs. ALLERGIES: NONE TO PENICILLIN, SULFA, OR FOODS. MEDICATION: Per chart. REVIEW OF SYSTEMS: As per HPI. PHYSICAL EXAMINATION: GENERAL: Patient is a well-developed, well-nourished female, who is alert, responsive, in no acute distress. VITAL SIGNS: Stable. She is afebrile. SKIN: Without generalized rash. HEENT: Within normal limits. NECK: Supple. Lymph nodes nonpalpable. CHEST: Decreased breath sounds at the bases. HEART: Without murmur or gallop. ABDOMEN: Soft, nontender, nondistended, without organosplenomegaly or masses. EXTREMITIES: Without cyanosis, clubbing, or edema. RECTAL AND GENITAL: Exams deferred. NEUROLOGIC: No focal neurological abnormalities. LABORATORY: White count today is 6.7, BUN creatinine 13/0.53. IMPRESSION AND PLAN: At this point, I would repeat a urine and if the urine is negative, I would discontinue all antibiotics. At this point, I do not see a reason for the cefepime since her chest x-ray is negative, blood cultures are negative, and therefore, we are not treating her for pulmonary consolidations or infiltrates. If the Corynebacterium jeikeium is done, then I do not think she needs any antibiotic therapy. She has been treated for 5 or 6 days, which should be adequate. So I am going to stop the antibiotics and repeat a urine culture. She does have some degree of bronchitis as noted by Dr. Rust, is on Solu- Medrol, so we may want to keep the cefepime for an additional 24- 48 hours. This I will dictate my findings to the hospitalists and to Dr. Elizabeth, Dr. Pete. Dictated By: Sonny Mcdaniel MD JD/aden/prema /Document#: [id number]
[2016-10-10] MEDS: HYDROmorphONE 1 MG/ML SYG IV PRN ×4 (03:33→20:52)
[2016-10-10] MEDS: METHYLPREDNISOLONE 40 MG INJ IV SCH ×3 (05:12→20:50)
[2016-10-10] MEDS: PANTOPRAZOLE (EC) 40 MG TAB PO SCH (05:12)
[2016-10-10 07:05] LABS: WHITE BLOOD COUNT 7.7 10^3/ul (4.8-10.8)
[2016-10-10 07:06] LABS: HEMATOCRIT 38.5 % (37.0-47.0); HEMOGLOBIN 12.4 g/dl (12.0-16.0); LYMPHOCYTES # 0.9 10^3/ul (0.8-2.9); LYMPHOCYTES % 11.1 % (15.0-51.0); MEAN CORPUSCULAR HEMOGLOBIN 29.9 pg (29.0-33.0); MEAN CORPUSCULAR HGB CONC 32.2 g/dl (32.0-37.0); MEAN CORPUSCULAR VOLUME 92.8 fl (82.0-101.0); MEAN PLATELET VOLUME 11.4 fl (7.4-10.4); MONOCYTE # 0.1 10^3/ul (0.3-0.9); MONOCYTES % 1.4 % (0.0-11.0); NEUTROPHILS % 87.1 % (39.0-77.0); PLATELET COUNT 207 10^3/UL (140-415); RED BLOOD COUNT 4.15 10^6/ul (4.20-5.40); RED CELL DISTRIBUTION WIDTH 14.4 % (11.5-14.5)
--- NOTE | 2016-10-10 07:15 | PN ---
Date/Time of Note Date/Time of Note DATE: 10/10/16 TIME: 07:12 Assessment/Plan VTE Prophylaxis VTE Prophylaxis Intervention: LMWH Lines/Catheters IV C[facility] Type (from [facility] Saline Lock Urinary Cath still in place: No Assessment/Plan Chief Complaint/Hosp Course 1. Postmenopausal vaginal bleeding. Pelvic ultrasound showing small uterus with ovaries not visualized. CT scan of the abdomen and pelvis showing endometrial thickening measuring up to 10 mm. S/P INTERMISSION COORDINATOR evaluation. Of note, the patient had elevated INR upon admission that might have caused the bleeding. 2. Hematuria. Resolved. Status post evaluation by urology. Hematuria most probably secondary to underlying urinary tract infection. 3. History of cardiac arrhythmias Currently not in any arrhythmia. Continue telemetry monitoring. 4. Chronic pain. Being followed by pain management team. 5. Possible underlying community-acquired pneumonia. CT scan is negative for any acute infiltrates. Probably has underlying acute bronchitis. Continue antimicrobials. 6. Urinary tract infection. Culture positive for Corynebacterium Jk. S/P antimicrobials as per ID. Repeat urine cultures pending. 7. Essential hypertension. Continue antihypertensives. 8. Deep venous thrombosis in the left lower extremity involving the popliteal vein. The patient is on Coumadin. However the patient's INR is subtherapeutic. Hence the patient was started on Lovenox for bridging. 9. Fluids, electrolytes, and nutrition. Carbohydrate controlled diet. 10. DVT prophylaxis. Therapeutic anticoagulation. 11. Plan. Continue antimicrobials. Needs placement. Case discussed with Dr. Kaur. Problems: Subjective 24 Hr Interval Summary Free Text/Dictation Constipated. Exam/Review of Systems Vital Signs Vitals Vital Signs Date Time Temp Pulse Resp B/P Pulse Ox O2 Delivery O2 Flow Rate FiO2 10/10/16 04:24 105 10/10/16 04:00 97.8 17 121/77 95 10/09/16 20:00 Nasal Cannula 2.0 Intake and Output 10/09/16 10/09/16 10/10/16 14:59 22:59 06:59 Intake Total 50 ml 480 ml 400 ml Balance 50 ml 480 ml 400 ml Exam General: Adequately build 81 year-old female lying in bed in no apparent distress. HEENT: Normocephalic, atraumatic. Eyes: Anicteric sclerae, conjunctivae clear. ENT: Nasal septum midline, oral mucosa moist. Neck supple, no JVD noticed. Respiratory: Bilaterally clear breath sounds. No use of accessory muscles of respiration. No adventitious breath sounds. Cardiovascular: S1, S2 heard. Regular rate and rhythm. Abdomen: Soft, nontender, and nondistended. Bowel sounds hypoactive in all 4 quadrants. Genitourinary: Deferred. Extremities: No cyanosis, no clubbing, no edema. Peripheral pulses palpable. Neurologic: The patient is awake and alert. Follows commands. Results Result Diagram: 10/10/16 0604 10/09/16 0621 Results 24 hrs Laboratory Tests Test 10/09/16 17:25 10/10/16 06:04 Bedside Glucose 157 White Blood Count 7.7 Red Blood Count 4.15 L Hemoglobin 12.4 Hematocrit 38.5 Mean Corpuscular Volume 92.8 Mean Corpuscular Hemoglobin 29.9 Mean Corpuscular Hemoglobin Concent 32.2 Red Cell Distribution Width 14.4 Platelet Count 207 Mean Platelet Volume 11.4 H Neutrophils % 87.1 H Lymphocytes % 11.1 L Monocytes % 1.4 Eosinophils % 0.0 Basophils % 0.0 Nucleated Red Blood Cells % 0.0 Neutrophils # (Manual) 7 Lymphocytes # 0.9 Monocytes # 0.1 L Eosinophils # 0.0 Basophils # 0.0 Nucleated Red Blood Cells # 0.0 Medications Medications Current Medications Cyanocobalamin (Vitamin B12) 100 mcg DAILY PO Last administered on 10/09/16 09 :18; Admin Dose 100 MCG; Start 10/04/16 at 09:00 Diltiazem HCl (Cardizem Sr) 60 mg TID PO Last administered on 10/09/16 20:32; Admin Dose 60 MG; Start 10/03/16 at 18:00 Docusate Sodium (Colace) 250 mg DAILY PRN PO CONSTIPATION Last administered on 10/09/16 09:33; Admin Dose 250 MG; Start 10/03/16 at 15:00 Folic Acid (Folic Acid) 1 mg DAILY PO Last administered on 10/09/16 09:20; Admin Dose 1 MG; Start 10/04/16 at 09:00 Furosemide (Lasix) 20 mg DAILY PO Last administered on 10/09/16 09:19; Admin Dose 20 MG; Start 10/04/16 at 09:00 Losartan Potassium (Cozaar) 100 mg DAILY PO Last administered on 10/09/16 09: 20; Admin Dose 100 MG; Start 10/04/16 at 09:00 Senna/Docusate Sodium (Senokot-S) 1 tab DAILY PO Last administered on 09:26; Admin Dose 1 TAB; Start 10/04/16 at 09:00 Pantoprazole 40 mg 40 mg DAILY@06 PO Last administered on 10/10/16 05:12; Admin Dose 40 MG; Start 10/04/16 at 06:00 Cefepime HCl (Maxipime 2gm/50 ml (Pmx)) 50 ml @ 100 mls/hr Q24H IVPB Last administered on 10/09/16 13:00; Admin Dose 100 MLS/HR; Start 10/04/16 at 13:00 Docusate Sodium (Colace) 100 mg Q12H PRN PO CONSTIPATION; Start 10/03/16 at 16: 00 Magnesium Hydroxide (Milk Of Mag) 30 ml DAILY PRN PO CONSTIPATION Last administered on 10/07/16 01:03; Admin Dose 30 ML; Start 10/03/16 at 16:00 Bisacodyl (Dulcolax Supp) 10 mg DAILY PRN [place] CONSTIPATION; Start 10/03/16 at 16 :00 Labetalol HCl (Labetalol) 10 mg Q4H PRN IV for SBP greater than 160 Last administered on 10/09/16 04:25; Admin Dose 10 MG; Start 10/03/16 at 21:00 Lorazepam (Ativan) 1 mg Q6H PRN PO ANXIETY Last administered on 10/09/16 04:56 ; Admin Dose 1 MG; Start 10/03/16 at 23:30 Hydromorphone HCl (Dilaudid) 0.5 mg Q4H PRN IV PAIN Last administered on 03:33; Admin Dose 0.5 MG; Start 10/04/16 at 13:00 Tramadol HCl (Ultram) 100 mg Q6 PO Last administered on 10/10/16 05:12; Admin Dose 100 MG; Start 10/05/16 at 18:00 Amlodipine Besylate (Norvasc) 5 mg BID PO Last administered on 10/09/16 20:32 ; Admin Dose 5 MG; Start 10/05/16 at 13:30 Warfarin Sodium (Coumadin) 4 mg DAILY@17 PO Last administered on 10/09/16 17: 30; Admin Dose 4 MG; Start 10/07/16 at 17:00 Methylprednisolone Sodium Succinate (Solu-Medrol) 40 mg Q8 IV Last administered on 10/10/16 05:12; Admin Dose 40 MG; Start 10/09/16 at 14:00 Enoxaparin Sodium (Lovenox) 85 mg Q12 SC Last administered on 10/09/16 20:30; Admin Dose 85 MG; Start 10/09/16 at 21:00 Polyethylene Glycol (Miralax) 17 gm BID PO Last administered on 10/09/16 20:32 ; Admin Dose 17 GM; Start 10/09/16 at 21:00 FARZANEH CHAN NP Oct 10, 2016 07:15
[2016-10-10 07:30] LABS: INR 1.36; MAGNESIUM 2.1 mg/dl (1.7-2.5); PHOSPHORUS 3.5 mg/dl (2.5-4.9); PROTIME 16.8 Sec (12.2-14.2); PT RATIO 1.3
[2016-10-10 07:34] LABS: CREATININE 0.55 mg/dl (0.44-1.00); POTASSIUM 3.6 mmol/L (3.5-5.1)
[2016-10-10] MEDS: POLYETHYLENE GLYCOL 17 GM PACKET PO SCH ×2 (08:18→20:51)
[2016-10-10] MEDS: SENNA/DOCUSATE NA (8.6MG/50MG) TAB PO SCH (08:18)
[2016-10-10] MEDS: CYANOCOBALAMIN 100 MCG TAB PO SCH (08:18)
[2016-10-10] MEDS: LOSARTAN 50 MG TAB PO SCH (08:19)
[2016-10-10] MEDS: DILTIAZEM (SR) 60 MG CAP PO SCH ×3 (08:19→20:52)
[2016-10-10] MEDS: FOLIC ACID 1 MG TAB PO SCH (08:20)
[2016-10-10] MEDS: AMLODIPINE 5 MG TAB PO SCH ×2 (08:20→20:53)
[2016-10-10] MEDS: FUROSEMIDE 20 MG TAB PO SCH (08:20)
[2016-10-10] MEDS: ENOXAPARIN 100 MG/ML SYG SC SCH ×2 (08:34→20:55)
[2016-10-10] MEDS ORDERED: NA PHOSPHATE/BIPHOS 133 ML ENEMA PR PRN (12:00)
[2016-10-10] MEDS ORDERED: BISACODYL (EC) 5 MG TAB PO PRN (12:00)
[2016-10-10] MEDS: CEFEPIME 2GM/50 ML (PMX) 50 ML IVPB SCH (13:18)
[2016-10-10] MEDS: WARFARIN 2 MG TAB PO SCH (16:57)
--- NOTE | 2016-10-10 18:18 | PN ---
DATE: 10/10/2016 SUBJECTIVE DATA: The patient is comfortable this morning. Still has occasional wheezing but no hemoptysis or hematemesis. Decreased cough. OBJECTIVE DATA: VITAL SIGNS: Temperature 98, pulse is 100, blood pressure 145/70, O2 sat 96 percent on 2 liters nasal cannula. NECK: Supple. No JVD. No lymphadenopathy. HEART: S1 and S2. No added sounds or murmurs. CHEST: Diminished air entry bilaterally. ABDOMEN: Soft, nontender. No guarding or rebound. EXTREMITIES: No cyanosis, clubbing or edema. NEUROLOGIC: Generalized weakness. LABORATORY AND DIAGNOSTIC DATA: White count 7.7, hemoglobin 12.4, platelets were 207. Chemistry within normal limits. INR 1.36. IMPRESSION: 1. Tracheobronchitis, currently stable. 2. Possible bronchospasm improved with bronchodilators. 3. Hematuria, currently being evaluated for possible malignancy in addition to urinary tract infection. 4. Lower extremity deep vein thrombosis, remains subtherapeutic requiring Lovenox for bridging. PLAN: 1. Continue anticoagulation. 2. Continue bronchodilators. 3. Continue urology recommendations. 4. Discharge planning okay from pulmonary standpoint. Dictated By: Benjamin Martin MD /aden/rhonda /Document#: [id number]
--- NOTE | 2016-10-10 19:45 | PN ---
Date/Time of Note Date/Time of Note DATE: 10/10/16 TIME: 19:40 Assessment/Plan VTE Prophylaxis VTE Prophylaxis Intervention: LMWH (lovenox) Lines/Catheters IV [facility] Type [facility]from [facility] Saline Lock Urinary Cath still in place: No Assessment/Plan Chief Complaint/Hosp Course 81-year-old female was brought in with the possible diagnosis of vaginal bleed however on the examination there is no vaginal bleeding , urine culture is negative. the appearance on the ct scan is suggestive of urinary tract infection and cystitis. PT and INR are normal A SUPERANNUATION CLERK consultation have has been done Urine cytology results are pending! Problems: Subjective 24 Hr Interval Summary Constitutional: no complaints, other (more alert and awake) Eyes: no complaints ENT: no complaints Respiratory: no complaints Cardiovascular: No chest pain Gastrointestinal: constipation (no BM since admission) Genitourinary: No bleeding, No hematuria Musculoskeletal: bone/joint pain Skin: No bruising Neurologic: no complaints Endocrine: no complaints Exam/Review of Systems Vital Signs Vitals Vital Signs Date Time Temp Pulse Resp B/P Pulse Ox O2 Delivery O2 Flow Rate FiO2 10/10/16 16:21 101 10/10/16 15:39 98.2 19 134/72 96 10/10/16 08:20 Nasal Cannula 2.0 Intake and Output 10/09/16 10/09/16 10/10/16 14:59 22:59 06:59 Intake Total 50 ml 480 ml 400 ml Balance 50 ml 480 ml 400 ml Exam Constitutional: alert Psych: no complaints Head: normocephalic Eyes: nl conjunctiva ENMT: nl external ears & nose Neck: supple Respiratory: normal air movement Cardiovascular: No edema Gastrointestinal: soft Genitourinary - Female: other (urine cytology still pending results) Musculoskeletal: nl extremities to inspection Extremities: No calf tenderness Results Result Diagram: 10/10/16 0604 10/10/16 0604 Results 24 hrs Laboratory Tests Test 10/10/16 06:04 White Blood Count 7.7 Red Blood Count 4.15 L Hemoglobin 12.4 Hematocrit 38.5 Mean Corpuscular Volume 92.8 Mean Corpuscular Hemoglobin 29.9 Mean Corpuscular Hemoglobin Concent 32.2 Red Cell Distribution Width 14.4 Platelet Count 207 Mean Platelet Volume 11.4 H Neutrophils % 87.1 H Lymphocytes % 11.1 L Monocytes % 1.4 Eosinophils % 0.0 Basophils % 0.0 Nucleated Red Blood Cells % 0.0 Neutrophils # (Manual) 7 Lymphocytes # 0.9 Monocytes # 0.1 L Eosinophils # 0.0 Basophils # 0.0 Nucleated Red Blood Cells # 0.0 Prothrombin Time 16.8 H Prothrombin Time Ratio 1.3 INR International Normalized Ratio 1.36 Sodium Level 138 Potassium Level 3.6 Chloride Level 102 Carbon Dioxide Level 25 Anion Gap 15 Blood Urea Nitrogen 18 Creatinine 0.55 Glucose Level 217 Calcium Level 9.0 Phosphorus Level 3.5 Magnesium Level 2.1 Medications Medications Current Medications Cyanocobalamin (Vitamin B12) 100 mcg DAILY PO Last administered on 10/10/16 08 :18; Admin Dose 100 MCG; Start 10/04/16 at 09:00 Diltiazem HCl (Cardizem Sr) 60 mg TID PO Last administered on 10/10/16 13:19; Admin Dose 60 MG; Start 10/03/16 at 18:00 Docusate Sodium (Colace) 250 mg DAILY PRN PO CONSTIPATION Last administered on 10/09/16 09:33; Admin Dose 250 MG; Start 10/03/16 at 15:00 Folic Acid (Folic Acid) 1 mg DAILY PO Last administered on 10/10/16 08:20; Admin Dose 1 MG; Start 10/04/16 at 09:00 Furosemide (Lasix) 20 mg DAILY PO Last administered on 10/10/16 08:20; Admin Dose 20 MG; Start 10/04/16 at 09:00 Losartan Potassium (Cozaar) 100 mg DAILY PO Last administered on 10/10/16 08: 19; Admin Dose 100 MG; Start 10/04/16 at 09:00 Senna/Docusate Sodium (Senokot-S) 1 tab DAILY PO Last administered on 08:18; Admin Dose 1 TAB; Start 10/04/16 at 09:00 Pantoprazole 40 mg 40 mg DAILY@06 PO Last administered on 10/10/16 05:12; Admin Dose 40 MG; Start 10/04/16 at 06:00 Cefepime HCl (Maxipime 2gm/50 ml (Pmx)) 50 ml @ 100 mls/hr Q24H IVPB Last administered on 10/10/16 13:18; Admin Dose 100 MLS/HR; Start 10/04/16 at 13:00 Docusate Sodium (Colace) 100 mg Q12H PRN PO CONSTIPATION; Start 10/03/16 at 16: 00 Magnesium Hydroxide (Milk Of Mag) 30 ml DAILY PRN PO CONSTIPATION Last administered on 10/07/16 01:03; Admin Dose 30 ML; Start 10/03/16 at 16:00 Bisacodyl (Dulcolax Supp) 10 mg DAILY PRN [place] CONSTIPATION; Start 10/03/16 at 16 :00 Labetalol HCl (Labetalol) 10 mg Q4H PRN IV for SBP greater than 160 Last administered on 10/09/16 04:25; Admin Dose 10 MG; Start 10/03/16 at 21:00 Lorazepam (Ativan) 1 mg Q6H PRN PO ANXIETY Last administered on 10/09/16 04:56 ; Admin Dose 1 MG; Start 10/03/16 at 23:30 Hydromorphone HCl (Dilaudid) 0.5 mg Q4H PRN IV PAIN Last administered on 13:37; Admin Dose 0.5 MG; Start 10/04/16 at 13:00 Tramadol HCl (Ultram) 100 mg Q6 PO Last administered on 10/10/16 18:27; Admin Dose 100 MG; Start 10/05/16 at 18:00 Amlodipine Besylate (Norvasc) 5 mg BID PO Last administered on 10/10/16 08:20 ; Admin Dose 5 MG; Start 10/05/16 at 13:30 Warfarin Sodium (Coumadin) 4 mg DAILY@17 PO Last administered on 10/10/16 16: 57; Admin Dose 4 MG; Start 10/07/16 at 17:00 Methylprednisolone Sodium Succinate (Solu-Medrol) 40 mg Q8 IV Last administered on 10/10/16 13:18; Admin Dose 40 MG; Start 10/09/16 at 14:00 Enoxaparin Sodium (Lovenox) 85 mg Q12 SC Last administered on 10/10/16 08:34; Admin Dose 85 MG; Start 10/09/16 at 21:00 Polyethylene Glycol (Miralax) 17 gm BID PO Last administered on 10/10/16 08:18 ; Admin Dose 17 GM; Start 10/09/16 at 21:00 Bisacodyl (Dulcolax) 10 mg DAILY PRN PO CONSTIPATION; Start 10/10/16 at 12:00 Sodium Biphosphate/ Sodium Phosphate (Fleet Enema) 133 ml DAILY PRN [place] CONSTIPATION; Start 10/10/16 at 12:00 GUERDA COLON MD Oct 10, 2016 19:45
[2016-10-10] MEDS: LORAZEPAM 1 MG TAB PO PRN (22:29)
[2016-10-10] MEDS ORDERED: HALOPERIDOL 5 MG INJ IM PRN (23:00)
[2016-10-11] VITALS (15 sets, daily range): BP systolic 127–185; BP diastolic 64–80; PULSE 80–160; RESP 18–20
--- NOTE | 2016-10-11 03:08 | PN ---
DATE: 10/10/2016 INFECTIOUS DISEASE PROGRESS NOTE SUBJECTIVE: No acute events overnight per discussion with RN. The patient is awake. She is wheezing, but overall looks comfortable. Daughter at bedside. LABORATORY AND DIAGNOSTIC DATA: WBC 7.7, hemoglobin 12.4, hematocrit 38.5, platelets 207, neutrophils 87.1, no bands. BUN 18, creatinine 0.55. Blood cultures since admission remain negative. Urine culture on 10/06/2016 Corynebacterium group JK, susceptible to vancomycin. CT of the chest on admission revealed: No mass, lymphadenopathy or acute inflammatory pathology of the chest, low lung volumes with mild nonspecific chronic interstitial change changes, and right basilar atelectatic changes versus scaring. Cardiomegaly and atherosclerosis. Bilateral rib fractures, old and healing. Low bone density with severe old T1 compression fracture and multilevel degenerative changes of the thoracic spine. CT of the abdomen on admission revealed: Urinary bladder wall appeared thickened with adjacent inflammatory stranding, concerning for cystitis. Multiple bladder diverticula are incidentally noted. Endometrial thickness measuring 10 mm, above normal limits in postmenopausal patient. Consider further evaluation to exclude endometrial neoplasm. No urolithiasis or obstructive uropathy. Mild cardiomegaly. Small hiatal hernia, sigmoid diverticulosis without diverticulitis. OBJECTIVE DATA: VITAL SIGNS: Temperature 98.1, pulse 90, respirations 20, blood pressure 145/71, saturation 96 percent on nasal cannula. GENERAL: This is a morbidly obese elderly [place] woman who is awake and in no distress. HEENT: Head atraumatic, normocephalic. Sclerae are anicteric. Buccal mucosa dry. NECK: Supple. RESPIRATORY: Chest rise symmetrical. Breath sounds diminished at bases with bilateral expiratory wheezes. HEART: S1, S2. ABDOMEN: Soft. Bowel sounds present. EXTREMITIES: Without cyanosis. ASSESSMENT: 1. Cystitis with urine culture growing Corynebacterium group JK. 2. Status post vaginal bleeding with abnormal thickening of her endometrium. Rule out endometrial neoplasm. 3. Acute bronchitis with bronchospasm and intermittent wheezing. Started on Solu-Medrol and getting Lasix. 4. Possible urinary retention. 5. Hypertension. 6. History of rheumatoid arthritis. PLAN: The patient remains stable. She is on vancomycin and cefepime, pending repeat urine culture, is pending evaluation. Continue Urology and Pulmonary recommendations. Dictated By: Justin Alex NP /aden/kinza /Document#: [id number]
[2016-10-11] MEDS: PANTOPRAZOLE (EC) 40 MG TAB PO SCH (05:29)
[2016-10-11] MEDS: METHYLPREDNISOLONE 40 MG INJ IV SCH ×2 (05:30→14:00)
[2016-10-11] MEDS: traMADol 50 MG TAB PO SCH ×4 (05:30→23:59)
[2016-10-11 07:04] LABS: BASOPHILS % 0.1 % (0.0-2.0); HEMATOCRIT 38.7 % (37.0-47.0); HEMOGLOBIN 12.6 g/dl (12.0-16.0); LYMPHOCYTES # 0.8 10^3/ul (0.8-2.9); LYMPHOCYTES % 8.2 % (15.0-51.0); MEAN CORPUSCULAR HEMOGLOBIN 30.2 pg (29.0-33.0); MEAN CORPUSCULAR HGB CONC 32.6 g/dl (32.0-37.0); MEAN CORPUSCULAR VOLUME 92.8 fl (82.0-101.0); MEAN PLATELET VOLUME 11.5 fl (7.4-10.4); MONOCYTE # 0.3 10^3/ul (0.3-0.9); MONOCYTES % 2.7 % (0.0-11.0); NEUTROPHILS % 88.5 % (39.0-77.0); PLATELET COUNT 217 10^3/UL (140-415); RED BLOOD COUNT 4.17 10^6/ul (4.20-5.40); RED CELL DISTRIBUTION WIDTH 14.4 % (11.5-14.5); WHITE BLOOD COUNT 9.7 10^3/ul (4.8-10.8)
[2016-10-11 07:20] LABS: CALCIUM 8.9 mg/dl (8.4-10.2); CREATININE 0.53 mg/dl (0.44-1.00); INR 1.56; POTASSIUM 4.1 mmol/L (3.5-5.1); PROTIME 18.8 Sec (12.2-14.2); PT RATIO 1.5
[2016-10-11 07:35] LABS: MAGNESIUM 2.3 mg/dl (1.7-2.5); PHOSPHORUS 2.9 mg/dl (2.5-4.9)
[2016-10-11] MEDS: LOSARTAN 50 MG TAB PO SCH (09:12)
[2016-10-11] MEDS: FUROSEMIDE 20 MG TAB PO SCH (09:13)
[2016-10-11] MEDS: DILTIAZEM (SR) 60 MG CAP PO SCH ×3 (09:13→20:22)
[2016-10-11] MEDS: SENNA/DOCUSATE NA (8.6MG/50MG) TAB PO SCH (09:13)
[2016-10-11] MEDS: FOLIC ACID 1 MG TAB PO SCH (09:14)
[2016-10-11] MEDS: AMLODIPINE 5 MG TAB PO SCH ×2 (09:14→20:22)
[2016-10-11] MEDS: CYANOCOBALAMIN 100 MCG TAB PO SCH (09:14)
[2016-10-11] MEDS: POLYETHYLENE GLYCOL 17 GM PACKET PO SCH ×2 (09:14→20:24)
[2016-10-11] MEDS: ENOXAPARIN 100 MG/ML SYG SC SCH ×2 (09:23→20:36)
[2016-10-11] MEDS: HYDROmorphONE 1 MG/ML SYG IV PRN ×5 (09:39→22:53)
--- NOTE | 2016-10-11 09:39 | PN ---
Date/Time of Note Date/Time of Note DATE: 10/11/16 TIME: 09:38 Assessment/Plan VTE Prophylaxis VTE Prophylaxis Intervention: LMWH Lines/Catheters [facility] Saline Lock Urinary Cath still in place: No Assessment/Plan Chief Complaint/Hosp Course 1. Postmenopausal vaginal bleeding. Pelvic ultrasound showing small uterus with ovaries not visualized. CT scan of the abdomen and pelvis showing endometrial thickening measuring up to 10 mm. S/P MEDICAL DOCTOR MD evaluation. Of note, the patient had elevated INR upon admission that might have caused the bleeding. 2. Hematuria. Resolved. Status post evaluation by urology. Hematuria most probably secondary to underlying urinary tract infection. 3. History of cardiac arrhythmias Currently not in any arrhythmia. Continue telemetry monitoring. 4. Chronic pain. Being followed by pain management team. 5. Possible underlying community-acquired pneumonia. CT scan is negative for any acute infiltrates. Probably has underlying acute bronchitis. Continue antimicrobials. 6. Urinary tract infection. Culture positive for Corynebacterium Jk. S/P antimicrobials as per ID. Repeat urine cultures negative. 7. Essential hypertension. Continue antihypertensives. 8. Deep venous thrombosis in the left lower extremity involving the popliteal vein. The patient is on Coumadin. However the patient's INR is subtherapeutic. Hence the patient was started on Lovenox for bridging. 9. Fluids, electrolytes, and nutrition. Carbohydrate controlled diet. 10. DVT prophylaxis. Therapeutic anticoagulation. 11. Plan. Continue antimicrobials. Needs placement. Case discussed with Dr. Kaur. Problems: Subjective 24 Hr Interval Summary Free Text/Dictation Continues to have pain. Exam/Review of Systems Vital Signs Vitals Vital Signs Date Time Temp Pulse Resp B/P Pulse Ox O2 Delivery O2 Flow Rate FiO2 10/11/16 08:14 81 10/11/16 08:07 97.9 20 144/78 95 10/10/16 21:00 Nasal Cannula 2.0 Intake and Output 10/10/16 10/10/16 10/11/16 15:00 23:00 07:00 Intake Total 50 ml 700 ml 240 ml Output Total 200 ml Balance 50 ml 500 ml 240 ml Exam General: Adequately build 81 year-old female lying in bed in no apparent distress. HEENT: Normocephalic, atraumatic. Eyes: Anicteric sclerae, conjunctivae clear. ENT: Nasal septum midline, oral mucosa moist. Neck supple, no JVD noticed. Respiratory: Bilaterally clear breath sounds. No use of accessory muscles of respiration. No adventitious breath sounds. Cardiovascular: S1, S2 heard. Regular rate and rhythm. Abdomen: Soft, nontender, and nondistended. Bowel sounds hypoactive in all 4 quadrants. Genitourinary: Deferred. Extremities: No cyanosis, no clubbing, no edema. Peripheral pulses palpable. Neurologic: The patient is awake and alert. Follows commands. Results Result Diagram: 10/11/16 0603 10/11/16 0603 Results 24 hrs Laboratory Tests Test 10/11/16 06:03 White Blood Count 9.7 # Red Blood Count 4.17 L Hemoglobin 12.6 Hematocrit 38.7 Mean Corpuscular Volume 92.8 Mean Corpuscular Hemoglobin 30.2 Mean Corpuscular Hemoglobin Concent 32.6 Red Cell Distribution Width 14.4 Platelet Count 217 Mean Platelet Volume 11.5 H Neutrophils % 88.5 H Lymphocytes % 8.2 L Monocytes % 2.7 Eosinophils % 0.0 Basophils % 0.1 Nucleated Red Blood Cells % 0.0 Neutrophils # (Manual) 9 H Lymphocytes # 0.8 Monocytes # 0.3 Eosinophils # 0.0 Basophils # 0.0 Nucleated Red Blood Cells # 0.0 Prothrombin Time 18.8 H Prothrombin Time Ratio 1.5 INR International Normalized Ratio 1.56 Sodium Level 138 Potassium Level 4.1 Chloride Level 103 Carbon Dioxide Level 28 Anion Gap 11 Blood Urea Nitrogen 21 H Creatinine 0.53 Glucose Level 163 Calcium Level 8.9 Phosphorus Level 2.9 Magnesium Level 2.3 Medications Medications Current Medications Cyanocobalamin (Vitamin B12) 100 mcg DAILY PO Last administered on 10/11/16 09 :14; Admin Dose 100 MCG; Start 10/04/16 at 09:00 Diltiazem HCl (Cardizem Sr) 60 mg TID PO Last administered on 10/11/16 09:13; Admin Dose 60 MG; Start 10/03/16 at 18:00 Docusate Sodium (Colace) 250 mg DAILY PRN PO CONSTIPATION Last administered on 10/09/16 09:33; Admin Dose 250 MG; Start 10/03/16 at 15:00 Folic Acid (Folic Acid) 1 mg DAILY PO Last administered on 10/11/16 09:14; Admin Dose 1 MG; Start 10/04/16 at 09:00 Furosemide (Lasix) 20 mg DAILY PO Last administered on 10/11/16 09:13; Admin Dose 20 MG; Start 10/04/16 at 09:00 Losartan Potassium (Cozaar) 100 mg DAILY PO Last administered on 10/11/16 09: 12; Admin Dose 100 MG; Start 10/04/16 at 09:00 Senna/Docusate Sodium (Senokot-S) 1 tab DAILY PO Last administered on 09:13; Admin Dose 1 TAB; Start 10/04/16 at 09:00 Pantoprazole 40 mg 40 mg DAILY@06 PO Last administered on 10/11/16 05:29; Admin Dose 40 MG; Start 10/04/16 at 06:00 Cefepime HCl (Maxipime 2gm/50 ml (Pmx)) 50 ml @ 100 mls/hr Q24H IVPB Last administered on 10/10/16 13:18; Admin Dose 100 MLS/HR; Start 10/04/16 at 13:00 Docusate Sodium (Colace) 100 mg Q12H PRN PO CONSTIPATION; Start 10/03/16 at 16: 00 Magnesium Hydroxide (Milk Of Mag) 30 ml DAILY PRN PO CONSTIPATION Last administered on 10/07/16 01:03; Admin Dose 30 ML; Start 10/03/16 at 16:00 Bisacodyl (Dulcolax Supp) 10 mg DAILY PRN [place] CONSTIPATION; Start 10/03/16 at 16 :00 Labetalol HCl (Labetalol) 10 mg Q4H PRN IV for SBP greater than 160 Last administered on 10/09/16 04:25; Admin Dose 10 MG; Start 10/03/16 at 21:00 Lorazepam (Ativan) 1 mg Q6H PRN PO ANXIETY Last administered on 10/10/16 22:29 ; Admin Dose 1 MG; Start 10/03/16 at 23:30 Hydromorphone HCl (Dilaudid) 0.5 mg Q4H PRN IV PAIN Last administered on 20:52; Admin Dose 0.5 MG; Start 10/04/16 at 13:00 Tramadol HCl (Ultram) 100 mg Q6 PO Last administered on 10/11/16 05:30; Admin Dose 100 MG; Start 10/05/16 at 18:00 Amlodipine Besylate (Norvasc) 5 mg BID PO Last administered on 10/11/16 09:14 ; Admin Dose 5 MG; Start 10/05/16 at 13:30 Warfarin Sodium (Coumadin) 4 mg DAILY@17 PO Last administered on 10/10/16 16: 57; Admin Dose 4 MG; Start 10/07/16 at 17:00 Methylprednisolone Sodium Succinate (Solu-Medrol) 40 mg Q8 IV Last administered on 10/11/16 05:30; Admin Dose 40 MG; Start 10/09/16 at 14:00 Enoxaparin Sodium (Lovenox) 85 mg Q12 SC Last administered on 10/11/16 09:23; Admin Dose 85 MG; Start 10/09/16 at 21:00 Polyethylene Glycol (Miralax) 17 gm BID PO Last administered on 10/11/16 09:14 ; Admin Dose 17 GM; Start 10/09/16 at 21:00 Bisacodyl (Dulcolax) 10 mg DAILY PRN PO CONSTIPATION; Start 10/10/16 at 12:00 Sodium Biphosphate/ Sodium Phosphate (Fleet Enema) 133 ml DAILY PRN [place] CONSTIPATION; Start 10/10/16 at 12:00 Haloperidol (Haldol) 3 mg Q12H PRN IM anxiety & agitation Last administered on 10/10/16 23:49; Admin Dose 3 MG; Start 10/10/16 at 23:00 FARZANEH CHAN NP Oct 11, 2016 09:38
[2016-10-11] MEDS: CEFEPIME 2GM/50 ML (PMX) 50 ML IVPB SCH (12:51)
--- NOTE | 2016-10-11 15:12 | CONS ---
Date/Time of Note Date/Time of Note DATE: 10/11/16 TIME: 15:11 Consult Date/Type/Reason Admit Date/Time Oct 03, 2016 at 14:16 Initial Consult Date 10/04/16 Type of Consultation: Pulmonary Subjective Patient stable this afternoon. Objective Vital Signs Date Time Temp Pulse Resp B/P Pulse Ox O2 Delivery O2 Flow Rate FiO2 10/11/16 12:45 174/77 10/11/16 12:42 98.0 88 20 96 10/10/16 21:00 Nasal Cannula 2.0 Intake and Output 10/10/16 10/10/16 10/11/16 15:00 23:00 07:00 Intake Total 50 ml 700 ml 240 ml Output Total 200 ml Balance 50 ml 500 ml 240 ml Exam OBJECTIVE DATA: VITAL SIGNS: As above. NECK: Supple. No JVD. No lymphadenopathy. HEART: S1 and S2. No added sounds or murmurs. CHEST: Diminished air entry bilaterally. ABDOMEN: Soft, nontender. No guarding or rebound. EXTREMITIES: No cyanosis, clubbing or edema. NEUROLOGIC: Generalized weakness. Results/Medications Result Diagram: 10/11/16 0603 10/11/16 0603 Results 24 hrs Laboratory Tests Test 10/11/16 06:03 White Blood Count 9.7 # Red Blood Count 4.17 L Hemoglobin 12.6 Hematocrit 38.7 Mean Corpuscular Volume 92.8 Mean Corpuscular Hemoglobin 30.2 Mean Corpuscular Hemoglobin Concent 32.6 Red Cell Distribution Width 14.4 Platelet Count 217 Mean Platelet Volume 11.5 H Neutrophils % 88.5 H Lymphocytes % 8.2 L Monocytes % 2.7 Eosinophils % 0.0 Basophils % 0.1 Nucleated Red Blood Cells % 0.0 Neutrophils # (Manual) 9 H Lymphocytes # 0.8 Monocytes # 0.3 Eosinophils # 0.0 Basophils # 0.0 Nucleated Red Blood Cells # 0.0 Prothrombin Time 18.8 H Prothrombin Time Ratio 1.5 INR International Normalized Ratio 1.56 Sodium Level 138 Potassium Level 4.1 Chloride Level 103 Carbon Dioxide Level 28 Anion Gap 11 Blood Urea Nitrogen 21 H Creatinine 0.53 Glucose Level 163 Calcium Level 8.9 Phosphorus Level 2.9 Magnesium Level 2.3 Medications Current Medications Cyanocobalamin (Vitamin B12) 100 mcg DAILY PO Last administered on 10/11/16t 09 :14; Admin Dose 100 MCG; Start 10/04/16 at 09:00 Diltiazem HCl (Cardizem Sr) 60 mg TID PO Last administered on 10/11/16 12:50; Admin Dose 60 MG; Start 10/03/16 at 18:00 Docusate Sodium (Colace) 250 mg DAILY PRN PO CONSTIPATION Last administered on 10/09/16 09:33; Admin Dose 250 MG; Start 10/03/16 at 15:00 Folic Acid (Folic Acid) 1 mg DAILY PO Last administered on 10/11/16 09:14; Admin Dose 1 MG; Start 10/04/16 at 09:00 Furosemide (Lasix) 20 mg DAILY PO Last administered on 10/11/16 09:13; Admin Dose 20 MG; Start 10/04/16 at 09:00 Losartan Potassium (Cozaar) 100 mg DAILY PO Last administered on 10/11/16 09: 12; Admin Dose 100 MG; Start 10/04/16 at 09:00 Senna/Docusate Sodium (Senokot-S) 1 tab DAILY PO Last administered on 09:13; Admin Dose 1 TAB; Start 10/04/16 at 09:00 Pantoprazole 40 mg 40 mg DAILY@06 PO Last administered on 10/11/16 05:29; Admin Dose 40 MG; Start 10/04/16 at 06:00 Cefepime HCl (Maxipime 2gm/50 ml (Pmx)) 50 ml @ 100 mls/hr Q24H IVPB Last administered on 10/11/16 12:51; Admin Dose 100 MLS/HR; Start 10/04/16 at 13:00 Docusate Sodium (Colace) 100 mg Q12H PRN PO CONSTIPATION; Start 10/03/16 at 16: 00 Magnesium Hydroxide (Milk Of Mag) 30 ml DAILY PRN PO CONSTIPATION Last administered on 10/07/16 01:03; Admin Dose 30 ML; Start 10/03/16 at 16:00 Bisacodyl (Dulcolax Supp) 10 mg DAILY PRN [place] CONSTIPATION; Start 10/03/16 at 16 :00 Labetalol HCl (Labetalol) 10 mg Q4H PRN IV for SBP greater than 160 Last administered on 10/09/16 04:25; Admin Dose 10 MG; Start 10/03/16 at 21:00 Hydromorphone HCl (Dilaudid) 0.5 mg Q4H PRN IV PAIN Last administered on 13:36; Admin Dose 0.5 MG; Start 10/04/16 at 13:00 Tramadol HCl (Ultram) 100 mg Q6 PO Last administered on 10/11/16 12:50; Admin Dose 100 MG; Start 10/05/16 at 18:00 Amlodipine Besylate (Norvasc) 5 mg BID PO Last administered on 10/11/16 09:14 ; Admin Dose 5 MG; Start 10/05/16 at 13:30 Warfarin Sodium (Coumadin) 4 mg DAILY@17 PO Last administered on 10/10/16 16: 57; Admin Dose 4 MG; Start 10/07/16 at 17:00 Methylprednisolone Sodium Succinate (Solu-Medrol) 40 mg Q8 IV Last administered on 10/11/16 05:30; Admin Dose 40 MG; Start 10/09/16 at 14:00 Enoxaparin Sodium (Lovenox) 85 mg Q12 SC Last administered on 10/11/16 09:23; Admin Dose 85 MG; Start 10/09/16 at 21:00 Polyethylene Glycol (Miralax) 17 gm BID PO Last administered on 10/11/16 09:14 ; Admin Dose 17 GM; Start 10/09/16 at 21:00 Bisacodyl (Dulcolax) 10 mg DAILY PRN PO CONSTIPATION; Start 10/10/16 at 12:00 Sodium Biphosphate/ Sodium Phosphate (Fleet Enema) 133 ml DAILY PRN [place] CONSTIPATION; Start 10/10/16 at 12:00 Assessment/Plan Chief Complaint/Hosp Course IMPRESSION: 1. Tracheobronchitis, currently stable. 2. Possible bronchospasm improved with bronchodilators. 3. Hematuria, likely secondary to cystitis on anticoagulation 4. Lower extremity deep vein thrombosis, continues anticoagulation PLAN: 1. Continue anticoagulation. 2. Continue bronchodilators. Short steroid taper 3. Continue urology recommendations. 4. Discharge planning okay from pulmonary standpoint. Problems: SERGIO BERGER MD, [facility] Oct 11, 2016 15:12
[2016-10-11] MEDS: WARFARIN 2 MG TAB PO SCH (17:29)
--- NOTE | 2016-10-11 19:12 | PN ---
Date/Time of Note Date/Time of Note DATE: 10/11/16 TIME: 19:08 Assessment/Plan VTE Prophylaxis VTE Prophylaxis Intervention: LMWH Lines/Catheters IV [facility] Urinary Cath still in place: No Assessment/Plan Chief Complaint/Hosp Course 81-year-old female was brought in with the possible diagnosis of vaginal bleed however on the examination there is no vaginal bleeding , urine culture is negative. the appearance on the ct scan is suggestive of urinary tract infection and cystitis. PT and INR are normal [employer] consultation have has been done Urine cytology was negative Neurologically she is stable and may be discharged anytime Problems: Subjective 24 Hr Interval Summary Constitutional: no complaints Eyes: no complaints ENT: no complaints Respiratory: No pain Cardiovascular: No chest pain Gastrointestinal: constipation Genitourinary: No bleeding, No dysuria, No hematuria Musculoskeletal: no complaints Skin: other (Discoloration lower extremities) Neurologic: no complaints Endocrine: no complaints Psychological: no complaints Exam/Review of Systems Vital Signs Vitals Vital Signs Date Time Temp Pulse Resp B/P Pulse Ox O2 Delivery O2 Flow Rate FiO2 10/11/16 16:17 92 10/11/16 16:05 98.1 18 152/64 96 10/11/16 08:10 Nasal Cannula 2.0 Intake and Output 10/10/16 10/10/16 10/11/16 15:00 23:00 07:00 Intake Total 50 ml 700 ml 240 ml Output Total 200 ml Balance 50 ml 500 ml 240 ml Exam Constitutional: alert Psych: no complaints Head: normocephalic Eyes: nl conjunctiva ENMT: nl external ears & nose Neck: supple Respiratory: normal air movement Cardiovascular: No edema Gastrointestinal: soft Genitourinary - Female: other (Urine is clear, urine cytology 2 was negative) Extremities: other (Discoloration lower extremities) Results Result Diagram: 10/11/16 0603 10/11/16 0603 Results 24 hrs Laboratory Tests Test 10/11/16 06:03 White Blood Count 9.7 # Red Blood Count 4.17 L Hemoglobin 12.6 Hematocrit 38.7 Mean Corpuscular Volume 92.8 Mean Corpuscular Hemoglobin 30.2 Mean Corpuscular Hemoglobin Concent 32.6 Red Cell Distribution Width 14.4 Platelet Count 217 Mean Platelet Volume 11.5 H Neutrophils % 88.5 H Lymphocytes % 8.2 L Monocytes % 2.7 Eosinophils % 0.0 Basophils % 0.1 Nucleated Red Blood Cells % 0.0 Neutrophils # (Manual) 9 H Lymphocytes # 0.8 Monocytes # 0.3 Eosinophils # 0.0 Basophils # 0.0 Nucleated Red Blood Cells # 0.0 Prothrombin Time 18.8 H Prothrombin Time Ratio 1.5 INR International Normalized Ratio 1.56 Sodium Level 138 Potassium Level 4.1 Chloride Level 103 Carbon Dioxide Level 28 Anion Gap 11 Blood Urea Nitrogen 21 H Creatinine 0.53 Glucose Level 163 Calcium Level 8.9 Phosphorus Level 2.9 Magnesium Level 2.3 Medications Medications Current Medications Cyanocobalamin (Vitamin B12) 100 mcg DAILY PO Last administered on 10/11/16 09 :14; Admin Dose 100 MCG; Start 10/04/16 at 09:00 Diltiazem HCl (Cardizem Sr) 60 mg TID PO Last administered on 10/11/16 12:50; Admin Dose 60 MG; Start 10/03/16 at 18:00 Docusate Sodium (Colace) 250 mg DAILY PRN PO CONSTIPATION Last administered on 10/09/16 09:33; Admin Dose 250 MG; Start 10/03/16 at 15:00 Folic Acid (Folic Acid) 1 mg DAILY PO Last administered on 10/11/16 09:14; Admin Dose 1 MG; Start 10/04/16 at 09:00 Furosemide (Lasix) 20 mg DAILY PO Last administered on 10/11/16 09:13; Admin Dose 20 MG; Start 10/04/16 at 09:00 Losartan Potassium (Cozaar) 100 mg DAILY PO Last administered on 10/11/16 09: 12; Admin Dose 100 MG; Start 10/04/16 at 09:00 Senna/Docusate Sodium (Senokot-S) 1 tab DAILY PO Last administered on 09:13; Admin Dose 1 TAB; Start 10/04/16 at 09:00 Pantoprazole 40 mg 40 mg DAILY@06 PO Last administered on 10/11/16 05:29; Admin Dose 40 MG; Start 10/04/16 at 06:00 Cefepime HCl (Maxipime 2gm/50 ml (Pmx)) 50 ml @ 100 mls/hr Q24H IVPB Last administered on 10/11/16 12:51; Admin Dose 100 MLS/HR; Start 10/04/16 at 13:00 Docusate Sodium (Colace) 100 mg Q12H PRN PO CONSTIPATION; Start 10/03/16 at 16: 00 Magnesium Hydroxide (Milk Of Mag) 30 ml DAILY PRN PO CONSTIPATION Last administered on 10/07/16 01:03; Admin Dose 30 ML; Start 10/03/16 at 16:00 Bisacodyl (Dulcolax Supp) 10 mg DAILY PRN [place] CONSTIPATION; Start 10/03/16 at 16 :00 Labetalol HCl (Labetalol) 10 mg Q4H PRN IV for SBP greater than 160 Last administered on 10/09/16 04:25; Admin Dose 10 MG; Start 10/03/16 at 21:00 Hydromorphone HCl (Dilaudid) 0.5 mg Q4H PRN IV PAIN Last administered on 18:47; Admin Dose 0.5 MG; Start 10/04/16 at 13:00 Tramadol HCl (Ultram) 100 mg Q6 PO Last administered on 10/11/16 17:29; Admin Dose 100 MG; Start 10/05/16 at 18:00 Amlodipine Besylate (Norvasc) 5 mg BID PO Last administered on 10/11/16 09:14 ; Admin Dose 5 MG; Start 10/05/16 at 13:30 Warfarin Sodium (Coumadin) 4 mg DAILY@17 PO Last administered on 10/11/16 17: 29; Admin Dose 4 MG; Start 10/07/16 at 17:00 Methylprednisolone Sodium Succinate (Solu-Medrol) 40 mg Q8 IV Last administered on 10/11/16 05:30; Admin Dose 40 MG; Start 10/09/16 at 14:00 Enoxaparin Sodium (Lovenox) 85 mg Q12 SC Last administered on 10/11/16 09:23; Admin Dose 85 MG; Start 10/09/16 at 21:00 Polyethylene Glycol (Miralax) 17 gm BID PO Last administered on 10/11/16 09:14 ; Admin Dose 17 GM; Start 10/09/16 at 21:00 Bisacodyl (Dulcolax) 10 mg DAILY PRN PO CONSTIPATION; Start 10/10/16 at 12:00 Sodium Biphosphate/ Sodium Phosphate (Fleet Enema) 133 ml DAILY PRN [place] CONSTIPATION; Start 10/10/16 at 12:00 GUERDA COLON MD Oct 11, 2016 19:12
--- NOTE | 2016-10-11 21:50 | PN ---
DATE: 10/11/2016 SUBJECTIVE DATA: No acute changes. The patient is alert, eating lunch. Daughter at bedside. No fevers. LABORATORY AND DIAGNOSTIC DATA: WBC 9.7, neutrophils 88.5, no bands. BUN 21, creatinine 0.53. MICROBIOLOGY: Repeat urine cultures negative. ANTIMICROBIALS: The patient is on cefepime, day number 8. PHYSICAL EXAMINATION: GENERAL: This is an obese, well developed, elderly woman, who is alert, in no distress. HEENT: Head atraumatic, normocephalic. Sclerae anicteric. Buccal mucosa pink. NECK: Supple. CHEST: Rise symmetrical. Breath sounds clear. Diminished at bases. HEART: S1, S2. ABDOMEN: Soft, bowel sounds present. EXTREMITIES: Without cyanosis. ASSESSMENT: 1. Acute tracheobronchitis, improved with possible bronchospasm. 2. Lower extremity deep vein thrombosis. 3. Cystitis with repeat urine cultures being negative. 4. Status post vaginal bleeding within evidence of abnormal thickening of endometrium, rule out neoplasm. 5. Hypertension. 6. History of rheumatoid arthritis. PLAN: 1. The patient remains stable on appropriate antimicrobials, which will continue for a couple more days. 2. She is being followed for multiple consultants. 3. No acute intervention needed at this time, as per expense clerk. The patient to follow up with [facility]AT[facility] SERVICES REPRESENTAT[facility] as an outpatient. Dictated By: Justin Alex NP /aden/natan /Document#: [id number]
[2016-10-12] VITALS (10 sets, daily range): BP systolic 137–159; BP diastolic 65–95; PULSE 85–101; RESP 16–18
[2016-10-12] MEDS: traMADol 50 MG TAB PO SCH ×3 (05:28→18:08)
[2016-10-12] MEDS: PANTOPRAZOLE (EC) 40 MG TAB PO SCH (05:28)
[2016-10-12 07:31] LABS: HEMATOCRIT 38.5 % (37.0-47.0); HEMOGLOBIN 12.3 g/dl (12.0-16.0); LYMPHOCYTES # 1.1 10^3/ul (0.8-2.9); LYMPHOCYTES % 13.8 % (15.0-51.0); MEAN CORPUSCULAR HEMOGLOBIN 29.9 pg (29.0-33.0); MEAN CORPUSCULAR HGB CONC 31.9 g/dl (32.0-37.0); MEAN CORPUSCULAR VOLUME 93.7 fl (82.0-101.0); MEAN PLATELET VOLUME 11.5 fl (7.4-10.4); MONOCYTE # 0.8 10^3/ul (0.3-0.9); MONOCYTES % 10.3 % (0.0-11.0); NEUTROPHILS % 75.5 % (39.0-77.0); PLATELET COUNT 207 10^3/UL (140-415); RED BLOOD COUNT 4.11 10^6/ul (4.20-5.40); RED CELL DISTRIBUTION WIDTH 14.6 % (11.5-14.5); WHITE BLOOD COUNT 7.7 10^3/ul (4.8-10.8)
[2016-10-12 07:47] LABS: INR 1.9; PT RATIO 1.7
[2016-10-12] MEDS: HYDROmorphONE 1 MG/ML SYG IV PRN (09:14)
[2016-10-12] MEDS: CYANOCOBALAMIN 100 MCG TAB PO SCH (09:15)
[2016-10-12] MEDS: POLYETHYLENE GLYCOL 17 GM PACKET PO SCH (09:15)
[2016-10-12] MEDS: SENNA/DOCUSATE NA (8.6MG/50MG) TAB PO SCH (09:16)
[2016-10-12] MEDS: LOSARTAN 50 MG TAB PO SCH (09:16)
[2016-10-12] MEDS: AMLODIPINE 5 MG TAB PO SCH (09:16)
[2016-10-12 09:17] LABS: CALCIUM 8.7 mg/dl (8.4-10.2); CREATININE 0.52 mg/dl (0.44-1.00); POTASSIUM 3.9 mmol/L (3.5-5.1)
[2016-10-12] MEDS: FUROSEMIDE 20 MG TAB PO SCH (09:17)
[2016-10-12] MEDS: FOLIC ACID 1 MG TAB PO SCH (09:17)
[2016-10-12] MEDS: DILTIAZEM (SR) 60 MG CAP PO SCH ×2 (09:17→13:09)
[2016-10-12 09:20] LABS: MAGNESIUM 2.2 mg/dl (1.7-2.5); PHOSPHORUS 3.1 mg/dl (2.5-4.9)
[2016-10-12] MEDS: ENOXAPARIN 100 MG/ML SYG SC SCH (09:20)
--- NOTE | 2016-10-12 11:25 | CONS ---
Date/Time of Note Date/Time of Note DATE: 10/12/16 TIME: 11:24 Consult Date/Type/Reason Admit Date/Time Oct 03, 2016 at 14:16 Initial Consult Date 10/04/16 Type of Consultation: Pulmonary Subjective Patient comfortable this morning sitting up taking medications. According to her daughter she became more confused with steroids which is now improved. Objective Vital Signs Date Time Temp Pulse Resp B/P Pulse Ox O2 Delivery O2 Flow Rate FiO2 10/12/16 11:05 98.0 83 18 143/65 94 10/11/16 22:04 Nasal Cannula 2.0 Intake and Output 10/11/16 10/11/16 10/12/16 14:59 22:59 06:59 Intake Total 50 ml 850 ml 200 ml Balance 50 ml 850 ml 200 ml Exam OBJECTIVE DATA: VITAL SIGNS: As above. NECK: Supple. No JVD. No lymphadenopathy. HEART: S1 and S2. No added sounds or murmurs. CHEST: Diminished air entry bilaterally. ABDOMEN: Soft, nontender. No guarding or rebound. EXTREMITIES: No cyanosis, clubbing or edema. NEUROLOGIC: Generalized weakness. Results/Medications Result Diagram: 10/12/1662010/12/16620 Results 24 hrs Laboratory Tests Test 10/12/16 06:21 White Blood Count 7.7 # Red Blood Count 4.11 L Hemoglobin 12.3 Hematocrit 38.5 Mean Corpuscular Volume 93.7 Mean Corpuscular Hemoglobin 29.9 Mean Corpuscular Hemoglobin Concent 31.9 L Red Cell Distribution Width 14.6 H Platelet Count 207 Mean Platelet Volume 11.5 H Neutrophils % 75.5 Lymphocytes % 13.8 L Monocytes % 10.3 Eosinophils % 0.0 Basophils % 0.0 Nucleated Red Blood Cells % 0.0 Neutrophils # (Manual) 6 Lymphocytes # 1.1 Monocytes # 0.8 Eosinophils # 0.0 Basophils # 0.0 Nucleated Red Blood Cells # 0.0 Prothrombin Time 22.0 H Prothrombin Time Ratio 1.7 INR International Normalized Ratio 1.90 Sodium Level 139 Potassium Level 3.9 Chloride Level 103 Carbon Dioxide Level 27 Anion Gap 13 Blood Urea Nitrogen 23 H Creatinine 0.52 Glucose Level 106 # Calcium Level 8.7 Phosphorus Level 3.1 Magnesium Level 2.2 Medications Current Medications Cyanocobalamin (Vitamin B12) 100 mcg DAILY PO Last administered on 10/12/16t 09 :15; Admin Dose 100 MCG; Start 10/04/16 at 09:00 Diltiazem HCl (Cardizem Sr) 60 mg TID PO Last administered on 10/12/16 09:17; Admin Dose 60 MG; Start 10/03/16 at 18:00 Docusate Sodium (Colace) 250 mg DAILY PRN PO CONSTIPATION Last administered on 10/09/16 09:33; Admin Dose 250 MG; Start 10/03/16 at 15:00 Folic Acid (Folic Acid) 1 mg DAILY PO Last administered on 10/12/16 09:17; Admin Dose 1 MG; Start 10/04/16 at 09:00 Furosemide (Lasix) 20 mg DAILY PO Last administered on 10/12/16 09:17; Admin Dose 20 MG; Start 10/04/16 at 09:00 Losartan Potassium (Cozaar) 100 mg DAILY PO Last administered on 10/12/16 09: 16; Admin Dose 100 MG; Start 10/04/16 at 09:00 Senna/Docusate Sodium (Senokot-S) 1 tab DAILY PO Last administered on 09:16; Admin Dose 1 TAB; Start 10/04/16 at 09:00 Pantoprazole 40 mg 40 mg DAILY@06 PO Last administered on 10/12/16 05:28; Admin Dose 40 MG; Start 10/04/16 at 06:00 Cefepime HCl (Maxipime 2gm/50 ml (Pmx)) 50 ml @ 100 mls/hr Q24H IVPB Last administered on 10/11/16 12:51; Admin Dose 100 MLS/HR; Start 10/04/16 at 13:00 Docusate Sodium (Colace) 100 mg Q12H PRN PO CONSTIPATION; Start 10/03/16 at 16: 00 Magnesium Hydroxide (Milk Of Mag) 30 ml DAILY PRN PO CONSTIPATION Last administered on 10/07/16 01:03; Admin Dose 30 ML; Start 10/03/16 at 16:00 Bisacodyl (Dulcolax Supp) 10 mg DAILY PRN [place] CONSTIPATION; Start 10/03/16 at 16 :00 Labetalol HCl (Labetalol) 10 mg Q4H PRN IV for SBP greater than 160 Last administered on 10/09/16 04:25; Admin Dose 10 MG; Start 10/03/16 at 21:00 Hydromorphone HCl (Dilaudid) 0.5 mg Q4H PRN IV PAIN Last administered on 09:14; Admin Dose 0.5 MG; Start 10/04/16 at 13:00 Tramadol HCl (Ultram) 100 mg Q6 PO Last administered on 10/12/16 05:28; Admin Dose 100 MG; Start 10/05/16 at 18:00 Amlodipine Besylate (Norvasc) 5 mg BID PO Last administered on 10/12/16 09:16 ; Admin Dose 5 MG; Start 10/05/16 at 13:30 Warfarin Sodium (Coumadin) 4 mg DAILY@17 PO Last administered on 10/11/16 17: 29; Admin Dose 4 MG; Start 10/07/16 at 17:00 Methylprednisolone Sodium Succinate (Solu-Medrol) 40 mg Q8 IV Last administered on 10/11/16 05:30; Admin Dose 40 MG; Start 10/09/16 at 14:00; Status Future Hold Enoxaparin Sodium (Lovenox) 85 mg Q12 SC Last administered on 10/12/16 09:20; Admin Dose 85 MG; Start 10/09/16 at 21:00 Polyethylene Glycol (Miralax) 17 gm BID PO Last administered on 10/12/16 09:15 ; Admin Dose 17 GM; Start 10/09/16 at 21:00 Bisacodyl (Dulcolax) 10 mg DAILY PRN PO CONSTIPATION; Start 10/10/16 at 12:00 Sodium Biphosphate/ Sodium Phosphate (Fleet Enema) 133 ml DAILY PRN [place] CONSTIPATION; Start 10/10/16 at 12:00 Assessment/Plan Chief Complaint/Hosp Course IMPRESSION: 1. Tracheobronchitis, currently stable. 2. Possible bronchospasm improved with bronchodilators. 3. Hematuria, likely secondary to cystitis on anticoagulation 4. Lower extremity deep vein thrombosis, continues anticoagulation PLAN: 1. Continue anticoagulation. 2. Continue bronchodilators. 3. Continue urology recommendations. I had a long discussion with patient's daughter and case management. Patient has bed available at [facility]. I stressed the importance of more aggressive physical therapy. Daughter confirms that she is not ready to take the patient home. Patient needs to be transferred to long term facility for continuing care. Discharge today. Problems: SERGIO BERGER MD, [facility] Oct 12, 2016 11:25
[2016-10-12] MEDS: CEFEPIME 2GM/50 ML (PMX) 50 ML IVPB SCH (13:09)
--- NOTE | 2016-10-12 15:10 | CONS ---
Date/Time of Note Date/Time of Note DATE: 10/12/16 TIME: 15:08 Assessment/Plan Assessment/Plan Chief Complaint/Hosp Course SUBJECTIVE DATA: No acute changes. The patient is sleeping. Daughter at bedside. No fevers. MICROBIOLOGY: Repeat urine cultures + yeast ANTIMICROBIALS: The patient is on cefepime, day number 9 PHYSICAL EXAMINATION: GENERAL: This is an obese, well developed, elderly woman, who is in no distress. HEENT: Head atraumatic, normocephalic. Sclerae anicteric. Buccal mucosa pink. NECK: Supple. CHEST: Rise symmetrical. Breath sounds clear. Diminished at bases. HEART: S1, S2. ABDOMEN: Soft, bowel sounds present. EXTREMITIES: Without cyanosis. ASSESSMENT: 1. Acute tracheobronchitis, improved with possible bronchospasm. 2. Lower extremity deep vein thrombosis. 3. Cystitis with repeat urine cultures being negative. 4. Status post vaginal bleeding within evidence of abnormal thickening of endometrium, rule out neoplasm. 5. Hypertension. 6. History of rheumatoid arthritis. 7. UTI PLAN: The patient remains stable, will dc Cefepime and start Fluconazole, f/u pulmonary/card rec-s. The patient to follow up with [facility] as an outpatient. [facility] staff Problems: Consultation Date/Type/Reason Admit Date/Time Oct 03, 2016 at 14:16 Initial Consult Date 10/09/16 Type of Consultation: ID Exam/Review of Systems Vital Signs Vitals Vital Signs Date Time Temp Pulse Resp B/P Pulse Ox O2 Delivery O2 Flow Rate FiO2 10/12/16 12:04 101 10/12/16 11:05 98.0 18 143/65 94 10/11/16 22:04 Nasal Cannula 2.0 Intake and Output 10/11/16 10/11/16 10/12/16 15:00 23:00 07:00 Intake Total 50 ml 850 ml 200 ml Balance 50 ml 850 ml 200 ml Results Result Diagram: 10/12/16 0621 10/12/16 0621 Results 24 hrs Laboratory Tests Test 10/12/16 06:21 White Blood Count 7.7 # Red Blood Count 4.11 L Hemoglobin 12.3 Hematocrit 38.5 Mean Corpuscular Volume 93.7 Mean Corpuscular Hemoglobin 29.9 Mean Corpuscular Hemoglobin Concent 31.9 L Red Cell Distribution Width 14.6 H Platelet Count 207 Mean Platelet Volume 11.5 H Neutrophils % 75.5 Lymphocytes % 13.8 L Monocytes % 10.3 Eosinophils % 0.0 Basophils % 0.0 Nucleated Red Blood Cells % 0.0 Neutrophils # (Manual) 6 Lymphocytes # 1.1 Monocytes # 0.8 Eosinophils # 0.0 Basophils # 0.0 Nucleated Red Blood Cells # 0.0 Prothrombin Time 22.0 H Prothrombin Time Ratio 1.7 INR International Normalized Ratio 1.90 Sodium Level 139 Potassium Level 3.9 Chloride Level 103 Carbon Dioxide Level 27 Anion Gap 13 Blood Urea Nitrogen 23 H Creatinine 0.52 Glucose Level 106 # Calcium Level 8.7 Phosphorus Level 3.1 Magnesium Level 2.2 Medications Medications Current Medications Cyanocobalamin (Vitamin B12) 100 mcg DAILY PO Last administered on 10/12/16 09 :15; Admin Dose 100 MCG; Start 10/04/16 at 09:00 Diltiazem HCl (Cardizem Sr) 60 mg TID PO Last administered on 10/12/16 13:09; Admin Dose 60 MG; Start 10/03/16 at 18:00 Docusate Sodium (Colace) 250 mg DAILY PRN PO CONSTIPATION Last administered on 10/09/16 09:33; Admin Dose 250 MG; Start 10/03/16 at 15:00 Folic Acid (Folic Acid) 1 mg DAILY PO Last administered on 10/12/16 09:17; Admin Dose 1 MG; Start 10/04/16 at 09:00 Furosemide (Lasix) 20 mg DAILY PO Last administered on 10/12/16 09:17; Admin Dose 20 MG; Start 10/04/16 at 09:00 Losartan Potassium (Cozaar) 100 mg DAILY PO Last administered on 10/12/16 09: 16; Admin Dose 100 MG; Start 10/04/16 at 09:00 Senna/Docusate Sodium (Senokot-S) 1 tab DAILY PO Last administered on 09:16; Admin Dose 1 TAB; Start 10/04/16 at 09:00 Pantoprazole 40 mg 40 mg DAILY@06 PO Last administered on 10/12/16 05:28; Admin Dose 40 MG; Start 10/04/16 at 06:00 Cefepime HCl (Maxipime 2gm/50 ml (Pmx)) 50 ml @ 100 mls/hr Q24H IVPB Last administered on 10/12/16 13:09; Admin Dose 100 MLS/HR; Start 10/04/16 at 13:00 Docusate Sodium (Colace) 100 mg Q12H PRN PO CONSTIPATION; Start 10/03/16 at 16: 00 Magnesium Hydroxide (Milk Of Mag) 30 ml DAILY PRN PO CONSTIPATION Last administered on 10/07/16 01:03; Admin Dose 30 ML; Start 10/03/16 at 16:00 Bisacodyl (Dulcolax Supp) 10 mg DAILY PRN [place] CONSTIPATION; Start 10/03/16 at 16 :00 Labetalol HCl (Labetalol) 10 mg Q4H PRN IV for SBP greater than 160 Last administered on 10/09/16 04:25; Admin Dose 10 MG; Start 10/03/16 at 21:00 Hydromorphone HCl (Dilaudid) 0.5 mg Q4H PRN IV PAIN Last administered on 09:14; Admin Dose 0.5 MG; Start 10/04/16 at 13:00 Tramadol HCl (Ultram) 100 mg Q6 PO Last administered on 10/12/16 11:47; Admin Dose 100 MG; Start 10/05/16 at 18:00 Amlodipine Besylate (Norvasc) 5 mg BID PO Last administered on 10/12/16 09:16 ; Admin Dose 5 MG; Start 10/05/16 at 13:30 Warfarin Sodium (Coumadin) 4 mg DAILY@17 PO Last administered on 10/11/16 17: 29; Admin Dose 4 MG; Start 10/07/16 at 17:00 Methylprednisolone Sodium Succinate (Solu-Medrol) 40 mg Q8 IV Last administered on 10/11/16 05:30; Admin Dose 40 MG; Start 10/09/16 at 14:00; Status Future Hold Enoxaparin Sodium (Lovenox) 85 mg Q12 SC Last administered on 10/12/16 09:20; Admin Dose 85 MG; Start 10/09/16 at 21:00 Polyethylene Glycol (Miralax) 17 gm BID PO Last administered on 10/12/16 09:15 ; Admin Dose 17 GM; Start 10/09/16 at 21:00 Bisacodyl (Dulcolax) 10 mg DAILY PRN PO CONSTIPATION; Start 10/10/16 at 12:00 Sodium Biphosphate/ Sodium Phosphate (Fleet Enema) 133 ml DAILY PRN [place] CONSTIPATION; Start 10/10/16 at 12:00 LIA HORTON NP Oct 12, 2016 15:10
[2016-10-12] MEDS ORDERED: HYDROmorphONE 2 MG TAB PO PRN (15:30)
[2016-10-12] MEDS ORDERED: FLUCONAZOLE 100 MG TAB PO SCH (15:30)
--- NOTE | 2016-10-12 15:30 | PDOCDIS ---
Discharge Instructions DIAGNOSIS Discharge Diagnosis Vaginal bleeding. Resolved. Urinary tract infection. Opioid dependence. CONDITION Patient Condition: Stable HOME CARE INSTRUCTIONS: Diet Instructions: Low Fat /Cholesterol OTHER ORDERS: Other Orders: 1. Take medications as per medication list. 2. Low-cholesterol diet. 3. Follow-up with outpatient gynecology after discharge from SNF. FARZANEH CHAN NP Oct 12, 2016 15:30
[2016-10-12] MEDS ORDERED: HYDR2TAB36 PO (15:33)
[2016-10-12] MEDS: WARFARIN 2 MG TAB PO SCH (16:04)
[2016-10-12] MEDS ORDERED: FLUC100T39 PO (18:03)
--- NOTE | 2016-10-12 21:26 | DS ---
DATE OF ADMISSION: 10/03/2016 DATE OF DISCHARGE: 10/12/2016 FINAL DIAGNOSES: 1. Postmenopausal vaginal bleeding, status post evaluation by Gynecology. Outpatient Gynecology evaluation ordered. 2. Hematuria. Most probably secondary to underlying urinary tract infection. Resolved. 3. Urinary tract infection. 4. Chronic pain with opioid dependency. 5. Possible underlying acute bronchitis, status post antibiotic therapy. 6. Essential hypertension. 7. Deep vein thrombosis in the left lower extremity involving the popliteal vein. 8. History of cardiac arrhythmias. 9. Rheumatoid arthritis. CONSULTANTS: 1. Dr. Aubrey Matt, Pain Management. 2. Dr. Benjamin Martin, Pulmonary. 3. Dr. Kurtis Pete, Urology. 4. Dr. Jens Borrego, Gynecology. 5. Dr. Sonny Mcdaniel, Infectious Disease. HOSPITAL COURSE: This is an 81-year-old female with past medical history of cardiac arrhythmia and lower extremity DVT on anticoagulation, hypertension, sciatica, osteoporosis, and rheumatoid arthritis, who came to [facility] due to reported vaginal bleeding for 3 to 4 days. The patient also reported some dysuria. The patient was noticed to have INR of 3.42 upon presentation to the emergency room. The patient's urinalysis was positive for urinary tract infection. The patient's chest x-ray was showing largely hazy right perihilar density extending into the upper, lower, and middle lobes, obscuring the right heart border, with considerations of extrinsic pneumonia or pulmonary mass. Provided the patient's history of present illness, her comorbidities, and the diagnostic findings, a clinical decision was made to admit the patient to inpatient setting to have her further evaluated. The patient was admitted to inpatient telemetry floor. The patient was started on empiric antibiotics. A Urology consult, Pulmonary consult, and Pain Management consult were called on this patient. The patient underwent a pelvic ultrasound that showed a small uterus with no free fluid noted. The patient underwent a CT scan of the abdomen and pelvis that showed endometrial thickness measuring up to 10 mm above the limits in a postmenopausal patient. The patient was evaluated by Gynecology. Gynecology recommended outpatient Gynecology follow up. As per Gynecology notes, there was no vaginal bleeding upon examination. On the other hand, the patient was evaluated by Urology. The patient's urinalysis showed a urine microscopic WBC greater than 182. Urology confirmed that the patient's hematuria was secondary to her underlying urinary tract infection. The patient's urine culture was positive for Corynebacterium jeikeium. The patient also had cytology of urine as per Urology that was negative for any malignant cells. The patient's hematuria resolved over the course of her hospital stay. The patient was empirically treated for any underlying community-acquired pneumonia. The patient underwent a CT scan of the chest that was negative for any definite infiltrates. Nevertheless, the patient was treated for any underlying acute tracheobronchitis. The patient also had bronchospasms. The patient was maintained on inhaled bronchodilators, along with tapering dose of steroids. The patient has a prior history of cardiac arrhythmias and also bilateral lower extremity DVT. Consequently, the patient was on warfarin at home. This was put on hold because of the patient's underlying hematuria and vaginal bleeding. The patient underwent a repeat ultrasound of the bilateral lower extremities that showed deep vein thrombosis in the left lower extremity involving the popliteal vein. Consequently, the patient was restarted on anticoagulation. The patient was started on therapeutic Lovenox to obtain a therapeutic INR with warfarin. The patient has underlying chronic pain. The Pain Management team was following the patient. The patient was asking for [id number] pain medications. The patient had constipation secondary to opioid use. The patient was maintained on stool softeners and p.r.n. laxatives. The patient was being followed by Infectious Diseases because of her underlying Corynebacterium jeikeium urinary tract infection. As per Infectious Diseases, the patient was adequately treated for underlying urinary tract infection. The patient has underlying essential hypertension. She was maintained on antihypertensives for the same. The patient was noticed to be severely debilitated. The patient was evaluated by Physical Therapy. Physical Therapy recommended SNF placement. Hence, the patient will be discharged to a correction facility. The patient was cleared by consultants to be discharged. The patient will be discharged to a correction facility. DISCHARGE DISPOSITION/PLAN: The patient will be discharged to [facility]. The patient will take medications as per the medication list. She will follow a low cholesterol diet. The patient's family was instructed to have the patient follow up with outpatient Gynecology after discharge from the correction facility. The patient's family verbalized understanding of the discharge instructions. DISCHARGE CONDITION: Stable. DISCHARGE MEDICATIONS: 1. Dilaudid 2 mg p.o. q.6 hours p.r.n. pain. 2. Fosamax 70 mg p.o. every . 3. Vitamin B12, 1000 mcg p.o. daily. 4. Cyclobenzaprine 10 mg p.o. daily p.r.n. muscle spasms. 5. Cardizem SR 60 mg p.o. t.i.d. 6. Colace 250 mg p.o. daily p.r.n. constipation. 7. Enbrel 50 mg subcutaneously every Sunday. 8. Folic acid 1 mg p.o. daily. 9. Lasix 20 mg p.o. daily. 10. Losartan 100 mg p.o. daily. 11. Omeprazole 20 mg p.o. daily. 12. Prednisone 10 mg p.o. daily. 13. Senna 1 tablet p.o. daily. 14. Tramadol 50 mg p.o. b.i.d. p.r.n. pain. 15. Warfarin 4 mg p.o. daily. 16. Fluconazole 100 mg p.o. daily x 10 days. PERTINENT LABORATORY AND DIAGNOSTIC TESTS: 1. 2D echocardiogram. Ejection fraction of 65 percent. Stage I diastolic dysfunction. 2. Urine culture from 10/03/2016 positive for Corynebacterium jeikeium. 3. Pelvic ultrasound. Small uterus. Ovaries not visualized. Possible diverticulum of the urinary bladder. 4. CT scan of the abdomen and pelvis. Urinary bladder wall appears thickened, with adjacent inflammatory stranding concerning for cystitis. Multiple bladder diverticula are incidentally noted. Endometrial thickness measures 10 mm above normal limits in a postmenopausal patient. No urolithiasis or obstructive uropathy. Mild cardiomegaly. Small hiatal hernia. Sigmoid diverticulosis without diverticulitis. 5. CT scan of the chest. No evidence of mass, lymphadenopathy or acute inflammatory pathology. Low lung volumes with mild nonspecific chronic interstitial changes and right basal atelectatic changes versus scarring. Cardiomegaly and atherosclerosis. Bilateral rib fractures, old and healing. 6. Bilateral lower extremity venous Doppler study. DVT in the left lower extremity involving the popliteal vein. Right lower extremity is negative for any evidence of DVT. 7. Latest CBC. WBC 7.7, hemoglobin 12.3, hematocrit 38.5, platelet count 207. 8. Latest BMP. Sodium 139, potassium 3.9, chloride 103, carbon dioxide 27, anion gap 13, BUN 23, creatinine 0.5, glucose 106, calcium 8.7, phosphorus 3.1, magnesium 2.2. 9. Hemoglobin A1c 6.0. 10. Fasting lipid panel. Triglycerides 138, total cholesterol 124, LDL 62, AST 34. 11. Alpha fetoprotein 3.69, carcinoembryonic antigen 4.2, CA19-9 antigen 23.7, C-125 antigen 13.3. At this time, I would like to thank all the consultants for seeing the patient and providing clinical recommendations. The case and management of this patient was fully discussed with Dr. Kaur. Approximately 40 minutes was spent on coordinating the discharge on this patient. Dictated By: Antolin Solis NP /aden/eduardo /Document#: [id number] [email or web address]
--- NOTE | 2016-10-13 08:47 | CONS ---
Date/Time of Note Date/Time of Note DATE: 10/13/16 TIME: 08:45 Assessment/Plan Assessment/Plan Additional Assessment/Plan Postdated note for October 09 Doing well family states her pain is under good control. Denies nausea vomiting chest pain shortness of breath cough. She looks very comfortable. Patient is constipated and she is being treated and also has a bowel regimen now. 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
--- NOTE | 2016-10-13 08:50 | CONS ---
Date/Time of Note Date/Time of Note DATE: 10/13/16 TIME: 08:47 Assessment/Plan Assessment/Plan Additional Assessment/Plan October 12 Patient is scheduled for discharge today family members will have discharge medications from pain management standpoint. I suggest a follow-up with a pain management physician. 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 There were no physical symptom management related to opioid prescriptions including nausea vomiting mental cloudiness instability. Patient would not drug-seeking during his hospitalization. 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
== END 2016-10-12 19:00 | DRG 689 ==
LOC: E/R 10:06 → TEL 14:16
PROVIDERS: ADMIT Hospitalist; ATTEND Hospitalist
DX: N30.01 Acute cystitis with hematuria (principal); J18.9 Pneumonia, unspecified organism; I82.432 Acute embolism and thrombosis of left popliteal vein; M06.9 Rheumatoid arthritis, unspecified; F11.20 Opioid dependence, uncomplicated; J20.9 Acute bronchitis, unspecified; B96.89 Other specified bacterial agents as the cause of diseases classified elsewhere; N95.0 Postmenopausal bleeding; I10 Essential (primary) hypertension; E66.9 Obesity, unspecified; E78.5 Hyperlipidemia, unspecified; G89.29 Other chronic pain; M81.0 Age-related osteoporosis without current pathological fracture; M54.40 Lumbago with sciatica, unspecified side; Z68.34 Body mass index [BMI] 34.0-34.9, adult; Z79.01 Long term (current) use of anticoagulants; Z66 Do not resuscitate
CPT/HCPCS: 36415; 71010; 71250; 74177; 76856; 80048; 80053; 80061; 80202; 81001; 82105; 82378; 82565; 82962; 83036; 83605; 83615; 83690; 83735; 84100; 84436; 84443; 84479; 84520; 85025; 85610; 85730; 86301; 86304; 87040; 87086; 88104; 92610; 93005; 93306; 93970; 96374; 96375; 97110; 97161; 97530; J0692; J1170; J1630; J1650; J1885; J2405; J2920; J3370; J3420; J7030; J7040; J7050; Q9967

== ENCOUNTER 2017-02-17 19:51 | Inpatient (IN) | END 2017-02-25 17:11 | disposition home health service (06) | DRG 291 ==